=== PATIENT | female | born 1950 | race Caucasian/White ===

== ENCOUNTER 2017-03-05 11:19 | Inpatient (IN) | payer MEDICARE ==
[~2017-03-05] VITALS: Ht 162.6 cm; Wt 123.4 kg
[2017-03-05 11:51] LABS: BASO # 0.1 x10^3/uL (0.0-0.2); BASO % 1 % (0-3); EOS % 1 % (0-3); HEMATOCRIT 37.5 % (36.0-47.0); HEMOGLOBIN 12.6 g/dL (12.0-15.5); LYMPH # 1.9 x10^3/uL (1.0-4.8); LYMPH % 34 % (24-48); MEAN CORPUSCULAR HEMOGLOBIN 29 pg (25-35); MEAN CORPUSCULAR HGB CONC 34 g/dL (31-37); MEAN CORPUSCULAR VOLUME 87 fL (79-100); MONO % 7 % (0-9); NEUT % 57 % (31-73); PLATELET COUNT 146 x10^3/uL (140-400); RED CELL DISTRIBUTION WIDTH 14.5 % (11.5-14.5); WHITE BLOOD COUNT 5.7 x10^3/uL (4.0-11.0)
[2017-03-05 12:01] LABS: CALCIUM 9.4 mg/dL (8.5-10.1); CREATININE 0.9 mg/dL (0.6-1.0); GFR 62.8
--- NOTE | 2017-03-05 12:02 | RAD ---
Portable chest, 03/05/2017: History: Chest pain, shortness of breath Comparison is made to a study from 05/03/2011. The heart is within normal limits in size. There is calcific plaquing of the aorta. The pulmonary vascularity is normal. No pulmonary infiltrates are seen. There is no evidence of pleural fluid. IMPRESSION: No acute cardiopulmonary abnormality is detected.
[2017-03-05 12:05] LABS: INR 1.1 (0.8-1.1); PROTHROMBIN TIME PATIENT 13.5 SEC (11.7-14.0)
[2017-03-05 12:06] LABS: ALBUMIN 3.4 g/dL (3.4-5.0); ALBUMIN/GLOBULIN RATIO 0.8 (1.0-1.7); MAGNESIUM 1.8 mg/dL (1.8-2.4); TOTAL BILIRUBIN 0.6 mg/dL (0.2-1.0); TOTAL PROTEIN 7.8 g/dL (6.4-8.2)
[2017-03-05] MEDS ORDERED: NITROGLYCERIN SUBLINGUAL 0.4 MG BOTTLE OF 25. SL PRN (12:30)
[2017-03-05] MEDS ORDERED: ACETAMINOPHEN 500 MG TABLET PO ONE (12:30)
[2017-03-05] MEDS ORDERED: ASPIRIN 325 MG TABLET PO ONE (12:30)
--- NOTE | 2017-03-05 12:37 | PHYS DOC ---
Past Medical History Past Medical History: Depression, Diabetes-Type II, Hypertension, Other Additional Past Medical Histor: GASTROPARESIS, [employer] APNEA, KIDNEY INFECTION Past Surgical History: Hysterectomy, Knee Replacement, Tonsillectomy Additional Past Surgical Histo: DEVIATED SEPTUM, BACK SIMUL, BILA KNEE REP, LAP BAND W REMOVAL, CARP TU-KENNEDY Alcohol Use: None Drug Use: None Adult General Chief Complaint Chief Complaint: CHEST PAIN [facility] HPI Patient is a 66 year old female who presents with chest pain and shortness of breath. Patient states for over a week she's had chest pressure, substernal, radiation into her neck. The pain is constant but worsens when she gets up and exerts assault. She also has associated shortness of breath when she exerts herself. She's not attempted any symptom controlling medication, denies previous similar symptoms. Denies any known cardiac history. She had a stress test performed last year that was inconclusive because she could not complete the treadmill portion. This was not followed up at that time. She has plans to see Dr. Kohli later this week. Marisol and was evaluated by Dr. Thomas he did not believe her symptoms were related to her gastroparesis exclusively. Patient did travel with the last couple months on a cruise. She does have increased edema in both lower legs with some pain, no history of PE or DVT. She did not take any of her medications this morning. Review of Systems Review of Systems Constitutional: Denies fever or chills [] Eyes: Denies change in visual acuity, redness, or eye pain [] HENT: Denies nasal congestion or sore throat [] Respiratory: Denies cough Cardiovascular: No additional information not addressed in HPI [] GI: Denies abdominal pain, nausea, vomiting, bloody stools or diarrhea [] : Denies dysuria or hematuria [] Musculoskeletal: Denies back pain or joint pain [] Integument: Denies rash or skin lesions [] Neurologic: Denies headache, focal weakness or sensory changes [] Current Medications Current Medications Current Medications Medications (Trade) Dose Ordered Sig/Pee Start Time Stop Time Status Last Admin Dose Admin Acetaminophen (Tylenol) 1,000 mg 1X ONCE 03/05/17 12:30 03/05/17 12:31 DC 03/05/17 12:43 1,000 MG Aspirin (Leo Aspirin) 325 mg 1X ONCE 03/05/17 12:30 03/05/17 12:31 DC 03/05/17 12:43 325 MG Nitroglycerin (Nitrostat) 0.4 mg PRN Q5MIN PRN 03/05/17 12:30 03/05/17 12:50 0.4 MG Allergies Allergies Allergies Coded Allergies Type Severity Reaction Last Updated Verified adhesive Allergy Intermediate 03/05/17 Yes codeine Allergy Intermediate 03/05/17 Yes nitrofurantoin Allergy Intermediate 03/05/17 Yes Physical Exam Physical Exam Constitutional: Well developed, well nourished, obese, no acute distress, non- toxic appearance. [] HENT: Normocephalic, atraumatic, bilateral external ears normal, oropharynx moist, no oral exudates, nose normal. [] Eyes: PERRLA, EOMI, conjunctiva normal, no discharge. [] Neck: Normal range of motion, no tenderness, supple, no stridor. [] Cardiovascular:Heart rate regular with regular rhythm, no murmur [] Lungs & Thorax: Bilateral breath sounds clear to auscultation, no wheeze or crackles, tenderness palpation on the proximal chest that does not reproduce patient's chest pain Abdomen: Bowel sounds normal, soft, no tenderness, no masses, no pulsatile masses. [] Skin: Warm, dry, no erythema, no rash. [] Back: No tenderness, no CVA tenderness. [] Extremities: No tenderness, no cyanosis, no clubbing, ROM intact, 1+ bilateral lower extremity edema with generalized tenderness palpation, neg homens Neurologic: Alert and oriented X 3, normal motor function, normal sensory function, no focal deficits noted. [] Psychologic: Affect normal, judgement normal, mood normal. [] Current Patient Data Vital Signs Vital Signs Date Time Temp Pulse Resp B/P Pulse Ox O2 Delivery O2 Flow Rate FiO2 03/05/17 12:51 82 24 200/81 95 Room Air 03/05/17 11:30 97.6 97.6 Lab Values Laboratory Tests Test 03/05/17 11:40 03/05/17 12:50 White Blood Count 5.7x10^3/uL (4.0-11.0) Red Blood Count 4.30x10^6/uL (3.50-5.40) Hemoglobin 12.6g/dL (12.0-15.5) Hematocrit 37.5% (36.0-47.0) Mean Corpuscular Volume 87fL (79-100) Mean Corpuscular Hemoglobin 29pg (25-35) Mean Corpuscular Hemoglobin Concent 34g/dL (31-37) Red Cell Distribution Width 14.5% (11.5-14.5) Platelet Count 146x10^3/uL (140-400) Neutrophils (%) (Auto) 57% (31-73) Lymphocytes (%) (Auto) 34% (24-48) Monocytes (%) (Auto) 7% (0-9) Eosinophils (%) (Auto) 1% (0-3) Basophils (%) (Auto) 1% (0-3) Neutrophils # (Auto) 3.3x10^3uL (1.8-7.7) Lymphocytes # (Auto) 1.9x10^3/uL (1.0-4.8) Monocytes # (Auto) 0.4x10^3/uL (0.0-1.1) Eosinophils # (Auto) 0.1x10^3/uL (0.0-0.7) Basophils # (Auto) 0.1x10^3/uL (0.0-0.2) Prothrombin Time 13.5SEC (11.7-14.0) Prothrombin Time INR 1.1 (0.8-1.1) D-Dimer (Brook) 0.44ug/mlFEU (0.00-0.50) Sodium Level 134mmol/L (136-145) L Potassium Level 4.0mmol/L (3.5-5.1) Chloride Level 101mmol/L (98-107) Carbon Dioxide Level 26mmol/L (21-32) Anion Gap 7 (6-14) Blood Urea Nitrogen 16mg/dL (7-20) Creatinine 0.9mg/dL (0.6-1.0) Estimated GFR (Cockcroft-Gault) 62.8 BUN/Creatinine Ratio 18 (6-20) Glucose Level 276mg/dL (70-99) H Calcium Level 9.4mg/dL (8.5-10.1) Magnesium Level 1.8mg/dL (1.8-2.4) Total Bilirubin 0.6mg/dL (0.2-1.0) Aspartate Amino Transferase (AST) 41U/L (15-37) H Alanine Aminotransferase (ALT) 48U/L (14-59) Alkaline Phosphatase 65U/L (46-116) Troponin I Quantitative < 0.017ng/mL (0.000-0.055) MF-Zuf-M-Type Natriuretic Peptide 48pg/mL (0-124) Total Protein 7.8g/dL (6.4-8.2) Albumin 3.4g/dL (3.4-5.0) Albumin/Globulin Ratio 0.8 (1.0-1.7) L Urine Collection Type Unknown Urine Color Yellow Urine Clarity Cloudy Urine pH 7.0 Urine Specific [place] 1.015 Urine Protein 100mg/dL (NEG-TRACE) Urine Glucose (UA) >=1000mg/dL (NEG) Urine Ketones (Stick) Tracemg/dL (NEG) Urine Blood Small (NEG) Urine Nitrite Negative (NEG) Urine Reducing Substances Neg% (NEG) Urine Bilirubin Negative (NEG) Urine Urobilinogen Dipstick 0.2mg/dL (0.2 mg/dL) Urine Leukocyte Esterase Small (NEG) Urine RBC 1-2/HPF (0-2) Urine WBC 11-20/HPF (0-4) Urine Squamous Epithelial Cells Mod/LPF Urine Bacteria Many/HPF (0-FEW) Laboratory Tests 03/05/17 11:40 Laboratory Tests 03/05/17 11:40 EKG EKG 84 bpm, sinus, normal axis, normal intervals, no acute ST elevation or depression appreciated, nonischemic T waves and interpreted by hi Radiology/Procedures Radiology/Procedures Chest x-ray: Portable chest, 03/05/2017: History: Chest pain, shortness of breath Comparison is made to a study from 05/03/2011. The heart is within normal limits in size. There is calcific plaquing of the aorta. The pulmonary vascularity is normal. No pulmonary infiltrates are seen. There is no evidence of pleural fluid. IMPRESSION: No acute cardiopulmonary abnormality is detected. Course & Med Decision Making Course & Med Decision Making Pertinent Labs and Imaging studies reviewed. (See chart for details) Pt given aspirin and nitro. Due to pt's symptoms and recent travel, D dimer added. Discussed pt with Dr. Kohli, who recommended admission, echo. Pt feeling improved, no acute findings on ED workup, D dimer negative. Pt accepted by Dr. Garcia to [facility]. Jen Disclaimer Dragarabella Disclaimer This electronic medical record was generated, in whole or in part, using a voice recognition dictation system. Departure Departure Disposition: 09 ADMITTED INPATIENT Admitting Physician: Jarrell Garcia Condition: STABLE Referrals: JARRELL GARCIA MD (PCP) RADHA DAVALOS MD March 05, 2017 12:37
[2017-03-05 13:03] LABS: BILIRUBIN,URINE NEGATIVE (NEG); GLUCOSE,URINE >=1000 mg/dL (NEG); NITRITE,URINE NEGATIVE (NEG); PROTEIN,URINE 100 mg/dL (NEG-TRACE); UROBILINOGEN,URINE 0.2 mg/dL (0.2 mg/dL)
[2017-03-05 13:32] LABS: BACTERIA,URINE MANY /HPF (0-FEW); SQUAMOUS EPITHELIAL CELL,UR MOD /LPF
--- NOTE | 2017-03-05 14:02 | EKG ---
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
[2017-03-05] MEDS ORDERED: fentaNYL PF VIAL 100 MCG/2 ML VIAL IV PRN (14:30)
[2017-03-05] MEDS ORDERED: ONDANSETRON PF 4 MG/2 ML VIAL. IV PRN (14:30)
--- NOTE | 2017-03-05 16:00 | ACF ---
Admission Forms Criteria CHEST PAIN Clinical Indications for Admission to Inpatient Care (Place 'X' for any and all applicable criteria): Admission is indicated for chest pain and ANY ONE of the following(1)(2)(3)(4)(5 ): [ ]I. Angina with acute coronary syndrome (Also use Myocardial Infarction or Angina guideline) [ ]II. Hemodynamic instability [X]III. Angina needing acute intervention as indicated by ALL of the following( 11)(12): [X]a) Unstable angina is present as indicated by angina that is ANY ONE of the following: [ ]i) New onset [ ]ii) Nocturnal [ ]iii) Prolonged at rest [X]iv) Progressive [X]b) Angina warrants acute intervention as indicated by ANY ONE of the following: [ ]i) Recurrent angina (e.g, not responding as previously to treatment) [ ]ii) Angina at rest or with low-level activities despite initial medical therapy [ ]iii) New or presumably new ST-segment depression on ECG [ ]iv) Signs or symptoms of heart failure (eg, dyspnea, pulmonary edema) [ ]v) New or worsening mitral regurgitation [ ]vi) Hemodynamic instability [ ]vii) Dangerous arrhythmia (eg, sustained ventricular tachycardia) [ ]viii) History of percutaneous coronary intervention within 6 months [ ]ix) History of coronary artery bypass graft surgery [ ]x) SAQIB risk score of 2 or greater[A] [X]xi) History of Diabetes(14) [ ]xii) High-risk cardiac ischemia findings on noninvasive testing (e.g, echocardiogram, treadmill testing, nuclear scan) [ ]xiii) Chronic renal insufficiency (ie, estimated GFR less than 60 mL/min/1.732m) [ ]xiv) Left ventricular ejection fraction less than 40% [ ]IV. Evidence of MO (eg, cardiac biomarkers positive, ST-segment elevation on ECG) also use Myocardial Infarction Criteria Form. [ ]V. Pulmonary edema [ ]. Respiratory distress [ ]VII. Chest pain indicative of serious diagnosis other than coronary artery disease (eg, aortic dissection) [ ]VIII. Contraindications and/or Inappropriate clinical situations for Observational Care in patients with Chest Pain, when ANY ONE of the following is required: [ ]a) Patient with risk factor for pulmonary embolism, acute coronary syndrome and myocardial infarction (18) [ ]b) Patient with Pulmonary embolism require an average LOS of 4.3 days, therefore emergency department observation management is inappropriate 18,23 [ ]c) Painful condition/s in the elderly, have the highest rate of recidivism after emergency department observation management (10.8%) 20,21,22 [ ]d) Elevated cardiac biomarker requires intensive and exhaustive care (19) [ ]IX. General contraindications and/or Inappropriate clinical situations for Observational Care in patients with Chest Pain, when ANY ONE of the following is required: [ ]a) Prediction of prolongation of LOS based on ANY ONE of the following may be considered as a contraindication for observational care 2, 3, 4, 5, 6, 7, 8, 9, 10, 11 [ ]i) Age > 65 yrs. [ ]ii) Patient arriving by ambulance [ ]iii) Patient with high acuity [ ]iv) Patient requiring vital sign monitoring [ ]v) Patient on IV medication [ ]b) Systolic blood pressures 180mmHg 3,12 [ ]c) Patient with altered mental status including delirium and other alteration of consciousness, (3) [ ]d) Patient whose discharge disposition will be to a senior care home or rehabilitation home should not be managed in Emergency Department Observation Unit. CMS rule requires 3 days hospital stay before such placement. 3,13 [ ]e) Patient with failure to thrive due to broad array of etiologies 3,16,17 [ ]f) Inability to ambulate 3,14 Extended stay beyond goal length of stay may be needed for (1)(28): [ ]a) Specific condition diagnosed after evaluation (eg, pulmonary embolism, aortic dissection) [ ]b) Unstable angina [ ]c) Continued suspicion of acute coronary syndrome with inability to complete needed cardiac evaluation (eg, patient clinically unable to undergo stress testing) [ ]d) Myocardial infarction (Contents from ANGINA and CHEST PAIN clinical indications for admission to inpatient care have been integrated in this form) The original [employer] content created by [employer] has been revised. The portions of the content which have been revised are identified through the use of italic text or in bold, and [email or web address] has neither reviewed nor approved the modified material. All other unmodified content is copyright [employer]. Please see references footnoted in the original [facility] [employer] edition 2016 Admission Criteria Met?: Yes SUZI JACKSON March 05, 2017 16:00
[2017-03-05 16:30] VITALS: BP 167/77
--- NOTE | 2017-03-05 17:48 | PDOC2 ---
CONSULT Date of Consult Date of Consult DATE: 03/05/17 TIME: 17:41 Reason for Consult Reason for Consult: Chest pain Referring Physician Referring Physician: Dr. Fall Identification/Chief Complaint Chief Complaint Chest pain History of Present Illness Reason for Visit: This patient is a 66-year-old lady with a known history of hypertension and she is above her ideal body weight. For about one week the patient has been having some constant chest pain and she was coming to see me in the office on . Today the chest pains got worse and has been continuous. The pain tends to be retrosternal and sharp and is also associated with shortness of breath which is getting worse. The patient has also noticed that she has been having worsening leg edema. In the ER she was seen and evaluated and her initial troponins were negative and her EKG did not have any acute changes. He was decided to bring the patient in for further workup. At the time that I saw her she feels a little better but she still continues to have the pain that she's had for over a week. Past Medical History Cardiovascular: HTN GI: GERD Current Problem List Problem List Problems Medical Problems: (1) Chest pain Status: Acute Current Medications Current Medications Current Medications Aspirin (Leo Aspirin) 325 mg 1X ONCE PO Last administered on 03/05/17 12:43 ; Start 03/05/17 at 12:30; Stop 03/05/17 at 12:31; Status DC Nitroglycerin (Nitrostat) 0.4 mg PRN Q5MIN PRN SL CHEST PAIN Last administered on 03/05/17 12:50; Start 03/05/17 at 12:30 Acetaminophen (Tylenol) 1,000 mg 1X ONCE PO Last administered on 03/05/17 12: 43; Start 03/05/17 at 12:30; Stop 03/05/17 at 12:31; Status DC Ondansetron HCl (Zofran) 4 mg PRN Q8HRS PRN IV NAUSEA/VOMITING; Start 03/05/17 at 14:30; Stop 03/06/17 at 14:29 Fentanyl Citrate (Fentanyl 2ml Vial) 50 mcg PRN Q2HR PRN IV PAIN; Start at 14:30; Stop 03/06/17 at 14:29 Allergies Allergies: Coded Allergies: adhesive (Verified Allergy, Intermediate, 03/05/17) codeine (Verified Allergy, Intermediate, 03/05/17) nitrofurantoin (Verified Allergy, Intermediate, 03/05/17) Physical Exam General: Alert, Oriented X3, Cooperative HEENT: Atraumatic, PERRLA Lungs: Other (moving air well. Few basilar Rales. No wheezing. No rhonchi.) Heart: Regular rate, Normal S1, Normal S2, No murmurs Abdomen: Normal bowel sounds, Soft Extremities: Other (1-2+ ankle edema) Psych/Mental Status: Mental status NL Vitals VITALS Vital Signs Date Time Temp Pulse Resp B/P Pulse Ox O2 Delivery O2 Flow Rate FiO2 03/05/17 16:54 Room Air 03/05/17 16:30 97.5 69 20 167/77 94 97.5 Labs Labs Laboratory Tests Test 03/05/17 11:40 03/05/17 12:50 White Blood Count 5.7x10^3/uL (4.0-11.0) Red Blood Count 4.30x10^6/uL (3.50-5.40) Hemoglobin 12.6g/dL (12.0-15.5) Hematocrit 37.5% (36.0-47.0) Mean Corpuscular Volume 87fL (79-100) Mean Corpuscular Hemoglobin 29pg (25-35) Mean Corpuscular Hemoglobin Concent 34g/dL (31-37) Red Cell Distribution Width 14.5% (11.5-14.5) Platelet Count 146x10^3/uL (140-400) Neutrophils (%) (Auto) 57% (31-73) Lymphocytes (%) (Auto) 34% (24-48) Monocytes (%) (Auto) 7% (0-9) Eosinophils (%) (Auto) 1% (0-3) Basophils (%) (Auto) 1% (0-3) Neutrophils # (Auto) 3.3x10^3uL (1.8-7.7) Lymphocytes # (Auto) 1.9x10^3/uL (1.0-4.8) Monocytes # (Auto) 0.4x10^3/uL (0.0-1.1) Eosinophils # (Auto) 0.1x10^3/uL (0.0-0.7) Basophils # (Auto) 0.1x10^3/uL (0.0-0.2) Prothrombin Time 13.5SEC (11.7-14.0) Prothromb Time International Ratio 1.1 (0.8-1.1) D-Dimer (Brook) 0.44ug/mlFEU (0.00-0.50) Sodium Level 134mmol/L (136-145) Potassium Level 4.0mmol/L (3.5-5.1) Chloride Level 101mmol/L (98-107) Carbon Dioxide Level 26mmol/L (21-32) Anion Gap 7 (6-14) Blood Urea Nitrogen 16mg/dL (7-20) Creatinine 0.9mg/dL (0.6-1.0) Estimated GFR (Cockcroft-Gault) 62.8 BUN/Creatinine Ratio 18 (6-20) Glucose Level 276mg/dL (70-99) Calcium Level 9.4mg/dL (8.5-10.1) Magnesium Level 1.8mg/dL (1.8-2.4) Total Bilirubin 0.6mg/dL (0.2-1.0) Aspartate Amino Transf (AST/SGOT) 41U/L (15-37) Alanine Aminotransferase (ALT/SGPT) 48U/L (14-59) Alkaline Phosphatase 65U/L (46-116) Troponin I Quantitative < 0.017ng/mL (0.000-0.055) ST-Hni-U-Type Natriuretic Peptide 48pg/mL (0-124) Total Protein 7.8g/dL (6.4-8.2) Albumin 3.4g/dL (3.4-5.0) Albumin/Globulin Ratio 0.8 (1.0-1.7) Urine Collection Type Unknown Urine Color Yellow Urine Clarity Cloudy Urine pH 7.0 Urine Specific [place] 1.015 Urine Protein 100mg/dL (NEG-TRACE) Urine Glucose (UA) >=1000mg/dL (NEG) Urine Ketones (Stick) Tracemg/dL (NEG) Urine Blood Small (NEG) Urine Nitrite Negative (NEG) Urine Reducing Substances Neg% (NEG) Urine Bilirubin Negative (NEG) Urine Urobilinogen Dipstick 0.2mg/dL (0.2 mg/dL) Urine Leukocyte Esterase Small (NEG) Urine RBC 1-2/HPF (0-2) Urine WBC 11-20/HPF (0-4) Urine Squamous Epithelial Cells Mod/LPF Urine Bacteria Many/HPF (0-FEW) Laboratory Tests Test 03/05/17 11:40 03/05/17 12:50 White Blood Count 5.7x10^3/uL (4.0-11.0) Red Blood Count 4.30x10^6/uL (3.50-5.40) Hemoglobin 12.6g/dL (12.0-15.5) Hematocrit 37.5% (36.0-47.0) Mean Corpuscular Volume 87fL (79-100) Mean Corpuscular Hemoglobin 29pg (25-35) Mean Corpuscular Hemoglobin Concent 34g/dL (31-37) Red Cell Distribution Width 14.5% (11.5-14.5) Platelet Count 146x10^3/uL (140-400) Neutrophils (%) (Auto) 57% (31-73) Lymphocytes (%) (Auto) 34% (24-48) Monocytes (%) (Auto) 7% (0-9) Eosinophils (%) (Auto) 1% (0-3) Basophils (%) (Auto) 1% (0-3) Neutrophils # (Auto) 3.3x10^3uL (1.8-7.7) Lymphocytes # (Auto) 1.9x10^3/uL (1.0-4.8) Monocytes # (Auto) 0.4x10^3/uL (0.0-1.1) Eosinophils # (Auto) 0.1x10^3/uL (0.0-0.7) Basophils # (Auto) 0.1x10^3/uL (0.0-0.2) Prothrombin Time 13.5SEC (11.7-14.0) Prothromb Time International Ratio 1.1 (0.8-1.1) D-Dimer (Brook) 0.44ug/mlFEU (0.00-0.50) Sodium Level 134mmol/L (136-145) Potassium Level 4.0mmol/L (3.5-5.1) Chloride Level 101mmol/L (98-107) Carbon Dioxide Level 26mmol/L (21-32) Anion Gap 7 (6-14) Blood Urea Nitrogen 16mg/dL (7-20) Creatinine 0.9mg/dL (0.6-1.0) Estimated GFR (Cockcroft-Gault) 62.8 BUN/Creatinine Ratio 18 (6-20) Glucose Level 276mg/dL (70-99) Calcium Level 9.4mg/dL (8.5-10.1) Magnesium Level 1.8mg/dL (1.8-2.4) Total Bilirubin 0.6mg/dL (0.2-1.0) Aspartate Amino Transf (AST/SGOT) 41U/L (15-37) Alanine Aminotransferase (ALT/SGPT) 48U/L (14-59) Alkaline Phosphatase 65U/L (46-116) Troponin I Quantitative < 0.017ng/mL (0.000-0.055) CJ-Hag-E-Type Natriuretic Peptide 48pg/mL (0-124) Total Protein 7.8g/dL (6.4-8.2) Albumin 3.4g/dL (3.4-5.0) Albumin/Globulin Ratio 0.8 (1.0-1.7) Urine Collection Type Unknown Urine Color Yellow Urine Clarity Cloudy Urine pH 7.0 Urine Specific [place] 1.015 Urine Protein 100mg/dL (NEG-TRACE) Urine Glucose (UA) >=1000mg/dL (NEG) Urine Ketones (Stick) Tracemg/dL (NEG) Urine Blood Small (NEG) Urine Nitrite Negative (NEG) Urine Reducing Substances Neg% (NEG) Urine Bilirubin Negative (NEG) Urine Urobilinogen Dipstick 0.2mg/dL (0.2 mg/dL) Urine Leukocyte Esterase Small (NEG) Urine RBC 1-2/HPF (0-2) Urine WBC 11-20/HPF (0-4) Urine Squamous Epithelial Cells Mod/LPF Urine Bacteria Many/HPF (0-FEW) Assessment/Plan Assessment/Plan This patient comes in with chest pain and dyspnea that are atypical for angina. In view of her symptoms and the edema I would like to get an echocardiogram to evaluate the left ventricular function and then depending on what that shows we' ll then make further recommendations. At the present time I don't think that she could do a stress test due to the dyspnea and the pain. Thank you very much for asking me to participate in the care of this patient WATSON HARRELL MD March 05, 2017 17:48
--- NOTE | 2017-03-05 18:21 | CARD ---
APPROVED REPORT EXAM: Two-dimensional and M-mode echocardiogram with Doppler and color Doppler. Other Information Quality : GoodHR: 62bpm Rhythm : NSR INDICATION Chest Pain Shortness of breath RISK FACTORS Hypertension Obesity Diabetes Smoking 2D DIMENSIONS RVDd2.9 (2.9-3.5cm)Left Atrium(2D)4.1 (1.6-4.0cm) IVSd1.0 (0.7-1.1cm)Aortic Root(2D)2.8 (2.0-3.7cm) LVDd5.6 (3.9-5.9cm)LVOT Diameter2.4 (1.8-2.4cm) PWd1.0 (0.7-1.1cm)LVDs3.4 (2.5-4.0cm) FS (%) 40.3 %SV109.2 ml LVEF(%)70.0 (>50%) Aortic Valve AoV Peak Tong.141.3cm/sAoV VTI28.4cm AO Peak GR.8.0mmHgLVOT Peak Tong.108.8cm/s AO Mean GR.4mmHgAVA (VMAX)3.41cm2 Mitral Valve MV E Xzddkdhg229.3cm/sMV E Peak Gr.8mmHg MV DECEL [id number] A Ykpghibs597.6cm/s MV E Mean Gr.2mmHgE/A Ratio0.7 MV A [id number] Pulmonary Valve PV Peak Uxeazwsf355.8cm/s Pulmonary Vein S1 Cbadwyap17.2cm/sD2 Ytimzach87.6cm/s PVa [id number] LEFT VENTRICLE The left ventricle is normal size. There is normal left ventricular wall thickness. The left ventricu lar systolic function is normal and the ejection fraction is within normal range. The Ejection Fracti on is 70%. There is normal LV segmental wall motion. Transmitral Doppler flow pattern is Grade I-abno rmal relaxation pattern. RIGHT VENTRICLE The right ventricle is normal size. There is normal right ventricular wall thickness. The right ventr icular systolic function is normal. ATRIA The left atrium size is normal. The right atrium size is normal. The interatrial septum is intact wit h no evidence for an atrial septal defect or patent foramen ovale as noted on 2-D or Doppler imaging. AORTIC VALVE The aortic valve is mildly sclerotic. The aortic valve is trileaflet. Doppler and Color Flow revealed no significant aortic regurgitation. There is no significant aortic valvular stenosis. MITRAL VALVE Mitral annular calcification is mild. The mitral valve leaflets are thickened. There is no evidence o f mitral valve prolapse. There is no mitral valve stenosis. Doppler and Color Flow revealed trace marissa ral valve regurgitation noted. TRICUSPID VALVE Doppler and Color Flow revealed no tricuspid valve regurgitation noted. Unable to determine pulmonary artery pressure at exam time. PULMONIC VALVE Doppler and Color Flow revealed no pulmonic valvular regurgitation. GREAT VESSELS The aortic root is normal in size. The ascending aorta is normal in size. The pulmonary artery is nor mal. The IVC is normal in size and collapses >50% with inspiration. PERICARDIAL EFFUSION There is no evidence of significant pericardial effusion. Critical Notification Critical Value: No <Conclusion> The left ventricular systolic function is normal and the ejection fraction is within normal range. The Ejection Fraction is 70%. Transmitral Doppler flow pattern is Grade I-abnormal relaxation pattern. The left atrium size is normal. The right atrium size is normal. The aortic valve is mildly sclerotic. The aortic valve is trileaflet. Doppler and Color Flow revealed trace mitral valve regurgitation noted. Mitral annular calcification is mild. The mitral valve leaflets are thickened. Doppler and Color Flow revealed no tricuspid valve regurgitation noted. Unable to determine pulmonary artery pressure at exam time. Doppler and Color Flow revealed no pulmonic valvular regurgitation. There is no evidence of significant pericardial effusion.
[2017-03-05 19:28] VITALS: BP 135/62
[2017-03-05] MEDS ORDERED: ESZOPICLONE 2 MG PO PRN (20:30)
[2017-03-05] MEDS ORDERED: [UNRECOGNIZED DRUG - CODE] PO (20:46)
[2017-03-05] MEDS ORDERED: ROPI0.5T2 PO (20:46)
[2017-03-05] MEDS ORDERED: GABA-586 PO (20:46)
[2017-03-05] MEDS ORDERED: METF500T4 PO (20:46)
[2017-03-05] MEDS ORDERED: METO50TA2 PO (20:46)
[2017-03-05] MEDS ORDERED: FESO8TAB PO (20:46)
[2017-03-05] MEDS ORDERED: MELO-150 PO (20:46)
[2017-03-05] MEDS ORDERED: FLUC200T4 PO (20:46)
[2017-03-05] MEDS ORDERED: INSU100V8 SQ (20:46)
[2017-03-05] MEDS ORDERED: DULO60CA44 PO (20:46)
[2017-03-05] MEDS ORDERED: SULF1TAB23 PO (20:46)
[2017-03-05] MEDS ORDERED: ESZO2TAB33 PO (20:46)
[2017-03-05] MEDS ORDERED: INSU200I SQ (20:46)
[2017-03-05] MEDS ORDERED: ERYT250C8 PO (20:46)
[2017-03-05] MEDS ORDERED: INSULIN DETEMIR 300 UNITS/3 ML INSULN.PEN. SQ SCH (21:00)
[2017-03-05] MEDS: ERYTHROMYCIN BASE 250 MG TABLET PO SCH (22:30)
[2017-03-05] MEDS: GABAPENTIN 300 MG CAPSULE. PO SCH (22:30)
[2017-03-05] MEDS: ZOLPIDEM 5 MG TABLET. PO PRN (22:31)
[2017-03-05] MEDS: rOPINIRole 0.25 MG TABLET. PO SCH (22:31)
[2017-03-05] MEDS: METOPROLOL TART IMMED RELEASE 50 MG TABLET. PO SCH (22:31)
[2017-03-05 23:22] VITALS: BP 147/63
[2017-03-06 03:16] VITALS: BP 153/56
[2017-03-06 07:00] VITALS: BP 156/67
[2017-03-06] MEDS ORDERED: INSULIN ASPART 300 UNITS/3 ML INSULN.PEN SQ SCH ×2 (07:30)
[2017-03-06] MEDS ORDERED: metFORMIN 500 MG TABLET PO SCH (08:00)
--- NOTE | 2017-03-06 08:34 | PDOC ---
Provider Note Provider Note [id number] JARRELL GARCIA MD March 06, 2017 08:34
[2017-03-06] MEDS ORDERED: SMZ/TMP 400/80MG TABLET. PO SCH (09:00)
--- NOTE | 2017-03-06 10:12 | HP ---
ADMIT DATE: 03/05/2017 CHIEF COMPLAINT: Chest pressure and heaviness. HISTORY OF PRESENT ILLNESS: A 66-year-old white female with history of sleep apnea and insulin-dependent diabetes and gastroparesis. For the last 1-2 weeks, she has had "heaviness" in her midsternal area that is present at rest, but worse with activity and also associated with exertional dyspnea. She does not have orthopnea or PND or cough, fever or chills, but it takes only mild exertion to worsen the dyspnea. The pressure in her chest does not radiate and she has never had any previous cardiac problems. Cardiac enzymes, chest x-ray and echo are all within normal limits to this point. PAST MEDICAL HISTORY: She has had appendectomy, hysterectomy. She has had bladder surgery, sees a urologist at for this. She has gastroparesis. MEDICATIONS: She takes erythromycin. Her A1c last was 7.2 one month ago with high-dose insulin therapy. She uses CPAP at night. SOCIAL HISTORY: Single, employed, nonsmoker, nondrinker. FAMILY HISTORY: Unremarkable. REVIEW OF SYSTEMS: Unremarkable. OBJECTIVE: ENT: All within normal limits. NECK: No masses, nodes or bruits. LUNGS: Decreased breath sounds. No wheezing. CARDIOVASCULAR: Regular rate. Heart tones distant. No murmur or S3. ABDOMEN: Obese, soft, benign and nontender. EXTREMITIES: Good pedal and radial pulses, minimal edema present. No joint or skin lesions. NEUROLOGIC: Physiologic. ASSESSMENT: Exertional chest pressure and exertional dyspnea in an insulin-dependent diabetic. This is very suspicious for anginal equivalent. High risk for coronary artery disease. PLAN: Per Dr. Kohli's recommendations. JARRELL GARCIA MD DR: KRISTIE/belle JOB#: [id number] / [id number]
[2017-03-06 11:00] VITALS: BP 145/63
[2017-03-06] MEDS: MELOXICAM 7.5 MG TABLET PO SCH (11:01)
[2017-03-06] MEDS: OXYBUTYNIN CHLORIDE 5 MG TABLET PO SCH ×3 (11:02→22:04)
[2017-03-06] MEDS: METOPROLOL TART IMMED RELEASE 50 MG TABLET. PO SCH ×2 (11:02→22:05)
[2017-03-06] MEDS: rOPINIRole 0.25 MG TABLET. PO SCH ×2 (11:02→22:04)
[2017-03-06] MEDS: DULoxetine HCL 30 MG CAPSULE.DR PO SCH (11:03)
[2017-03-06] MEDS: INSULIN ASPART 300 UNITS/3 ML INSULN.PEN SQ SCH ×2 (11:09→16:30)
[2017-03-06 15:00] VITALS: BP 153/60
[2017-03-06] MEDS ORDERED: ONDANSETRON ODT 4 MG TAB.RAPDIS. PO PRN (18:00)
--- NOTE | 2017-03-06 18:51 | PDOC ---
PROGRESS NOTES Subjective Subjective No chest pains now. The enzymes have been negative. The echocardiogram was done and it shows: The left ventricular systolic function is normal and the ejection fraction is within normal range. The Ejection Fraction is 70%. Transmitral Doppler flow pattern is Grade I-abnormal relaxation pattern. The left atrium size is normal. The right atrium size is normal. The aortic valve is mildly sclerotic. The aortic valve is trileaflet. Doppler and Color Flow revealed trace mitral valve regurgitation noted. Mitral annular calcification is mild. The mitral valve leaflets are thickened. Doppler and Color Flow revealed no tricuspid valve regurgitation noted. Unable to determine pulmonary artery pressure at exam time. Doppler and Color Flow revealed no pulmonic valvular regurgitation. There is no evidence of significant pericardial effusion. Objective Objective Vital Signs Date Time Temp Pulse Resp B/P Pulse Ox O2 Delivery O2 Flow Rate FiO2 03/06/17 15:00 98.4 70 18 153/60 95 Room Air 98.4 Intake and Output 03/06/17 07:00 Intake Total 300 ml Output Total 1200 ml Balance -900 ml Intake Oral 300 ml Output Urine Total 1200 ml Physical Exam Physical Exam No significant changes in cardiac exam Assessment Assessment We have discussed the situation and options as well as the risks with the patient and she decided that she wanted to proceed with a heart catheterization not a stress test. I will set up for the heart catheterization to be done tomorrow. Problems Medical Problems: (1) Chest pain Status: Acute Comment Review of Relevant I have reviewed the following items danny (where applicable) has been applied. Labs Laboratory Tests Test 03/05/17 11:40 03/05/17 12:50 03/05/17 18:49 03/05/17 19:49 White Blood Count 5.7x10^3/uL (4.0-11.0) Red Blood Count 4.30x10^6/uL (3.50-5.40) Hemoglobin 12.6g/dL (12.0-15.5) Hematocrit 37.5% (36.0-47.0) Mean Corpuscular Volume 87fL (79-100) Mean Corpuscular Hemoglobin 29pg (25-35) Mean Corpuscular Hemoglobin Concent 34g/dL (31-37) Red Cell Distribution Width 14.5% (11.5-14.5) Platelet Count 146x10^3/uL (140-400) Neutrophils (%) (Auto) 57% (31-73) Lymphocytes (%) (Auto) 34% (24-48) Monocytes (%) (Auto) 7% (0-9) Eosinophils (%) (Auto) 1% (0-3) Basophils (%) (Auto) 1% (0-3) Neutrophils # (Auto) 3.3x10^3uL (1.8-7.7) Lymphocytes # (Auto) 1.9x10^3/uL (1.0-4.8) Monocytes # (Auto) 0.4x10^3/uL (0.0-1.1) Eosinophils # (Auto) 0.1x10^3/uL (0.0-0.7) Basophils # (Auto) 0.1x10^3/uL (0.0-0.2) Prothrombin Time 13.5SEC (11.7-14.0) Prothromb Time International Ratio 1.1 (0.8-1.1) D-Dimer (Brook) 0.44ug/mlFEU (0.00-0.50) Sodium Level 134mmol/L (136-145) Potassium Level 4.0mmol/L (3.5-5.1) Chloride Level 101mmol/L (98-107) Carbon Dioxide Level 26mmol/L (21-32) Anion Gap 7 (6-14) Blood Urea Nitrogen 16mg/dL (7-20) Creatinine 0.9mg/dL (0.6-1.0) Estimated GFR (Cockcroft-Gault) 62.8 BUN/Creatinine Ratio 18 (6-20) Glucose Level 276mg/dL (70-99) Calcium Level 9.4mg/dL (8.5-10.1) Magnesium Level 1.8mg/dL (1.8-2.4) Total Bilirubin 0.6mg/dL (0.2-1.0) Aspartate Amino Transf (AST/SGOT) 41U/L (15-37) Alanine Aminotransferase (ALT/SGPT) 48U/L (14-59) Alkaline Phosphatase 65U/L (46-116) Troponin I Quantitative < 0.017ng/mL (0.000-0.055) < 0.017ng/mL (0.000-0.055) ZF-Fpf-M-Type Natriuretic Peptide 48pg/mL (0-124) Total Protein 7.8g/dL (6.4-8.2) Albumin 3.4g/dL (3.4-5.0) Albumin/Globulin Ratio 0.8 (1.0-1.7) Urine Collection Type Unknown Urine Color Yellow Urine Clarity Cloudy Urine pH 7.0 Urine Specific [place] 1.015 Urine Protein 100mg/dL (NEG-TRACE) Urine Glucose (UA) >=1000mg/dL (NEG) Urine Ketones (Stick) Tracemg/dL (NEG) Urine Blood Small (NEG) Urine Nitrite Negative (NEG) Urine Reducing Substances Neg% (NEG) Urine Bilirubin Negative (NEG) Urine Urobilinogen Dipstick 0.2mg/dL (0.2 mg/dL) Urine Leukocyte Esterase Small (NEG) Urine RBC 1-2/HPF (0-2) Urine WBC 11-20/HPF (0-4) Urine Squamous Epithelial Cells Mod/LPF Urine Bacteria Many/HPF (0-FEW) Glucose (Fingerstick) 206mg/dL (70-99) Test 03/06/17 02:25 03/06/17 07:54 03/06/17 11:05 03/06/17 17:02 Troponin I Quantitative < 0.017ng/mL (0.000-0.055) Glucose (Fingerstick) 273mg/dL (70-99) 256mg/dL (70-99) 237mg/dL (70-99) Laboratory Tests Test 03/05/17 19:49 03/06/17 02:25 03/06/17 07:54 03/06/17 11:05 Troponin I Quantitative < 0.017ng/mL (0.000-0.055) < 0.017ng/mL (0.000-0.055) Glucose (Fingerstick) 273mg/dL (70-99) 256mg/dL (70-99) Test 03/06/17 17:02 Glucose (Fingerstick) 237mg/dL (70-99) Microbiology 03/05/17 Urine Culture - Preliminary, Resulted 03/05/17 Urine Culture Result 1 (HECTOR) - Preliminary, Resulted Medications Current Medications Aspirin (Leo Aspirin) 325 mg 1X ONCE PO Last administered on 03/05/17t 12:43 ; Start 03/05/17 at 12:30; Stop 03/05/17 at 12:31; Status DC Nitroglycerin (Nitrostat) 0.4 mg PRN Q5MIN PRN SL CHEST PAIN Last administered on 03/05/17 12:50; Start 03/05/17 at 12:30 Acetaminophen (Tylenol) 1,000 mg 1X ONCE PO Last administered on 03/05/17 12: 43; Start 03/05/17 at 12:30; Stop 03/05/17 at 12:31; Status DC Ondansetron HCl (Zofran) 4 mg PRN Q8HRS PRN IV NAUSEA/VOMITING; Start 03/05/17 at 14:30; Stop 03/06/17 at 14:29; Status DC Fentanyl Citrate (Fentanyl 2ml Vial) 50 mcg PRN Q2HR PRN IV PAIN; Start at 14:30; Stop 03/06/17 at 14:29; Status DC Metformin HCl (Glucophage) 500 mg BIDWMEALS PO ; Start 03/06/17 at 08:00; Stop at 08:00; Status DC Metoprolol Tartrate (Lopressor) 50 mg BID PO Last administered on 03/06/17 11: 02; Start 03/05/17 at 21:00 Trimethoprim/ Sulfamethoxazole (Bactrim Ss) 1 tab DAILY PO ; Start 03/06/17 at 09 :00; Stop 03/06/17 at 09:00; Status DC Duloxetine HCl (Cymbalta) 60 mg DAILY PO Last administered on 03/06/17 11:03; Start 03/06/17 at 09:00 Erythromycin (E-Mycin) 250 mg BID PO Last administered on 03/05/17 22:30; Start 03/06/17 at 09:00 Non-Formulary Medication 2 mg HS PRN PO INSOMNIA; Start 03/05/17 at 20:30; Status UNV Oxybutynin Chloride (Ditropan) 5 mg [id number] PO Last administered on 03/06/17 14: 19; Start 03/06/17 at 09:00 Fluconazole (Diflucan) 200 mg WEEKLY PO ; Start 03/12/17 at 09:00; Stop 03/12/17 at 09:00; Status DC Gabapentin (Neurontin) 300 mg QHS PO Last administered on 03/05/17 22:30; Start 03/05/17 at 21:00 Meloxicam (Mobic) 15 mg DAILY PO Last administered on 03/06/17 11:01; Start 03/06/17 at 09:00 Ropinirole HCl (Requip) 0.5 mg BID PO Last administered on 03/06/17 11:02; Start 03/05/17 at 21:30 Insulin Detemir (Levemir) QHS SQ ; Start 03/05/17 at 21:00; Stop 03/05/17 at 21: 16; Status DC Insulin Aspart (Novolog) TIDAC SQ ; Start 03/06/17 at 07:30; Stop 03/06/17 at 07: 30; Status DC Zolpidem Tartrate (Ambien) 5 mg PRN QHS PRN PO INSOMNIA Last administered on 22:31; Start 03/05/17 at 20:30 Metformin HCl (Glucophage) 1,000 mg BIDWMEALS PO Last administered on 03/06/17 17:00; Start 03/06/17 at 08:00 Insulin Aspart (Novolog) 26 units TIDAC SQ ; Start 03/06/17 at 07:30; Stop at 08:23; Status DC Insulin Detemir (Levemir) 96 units QHS SQ Last administered on 03/05/17 22:43; Start 03/06/17 at 21:00; Stop 03/06/17 at 21:00; Status DC Insulin Aspart (Novolog) 18 units TIDAC SQ Last administered on 03/06/17 16:30 ; Start 03/06/17 at 11:30 Insulin Detemir (Levemir) 110 units QHS SQ ; Start 03/06/17 at 21:00 Ondansetron HCl (Zofran Odt) 4 mg PRN QID PRN PO NAUSEA/VOMITING Last administered on 03/06/17 18:06; Start 03/06/17 at 18:00 Active Scripts Active Reported Lunesta (Eszopiclone) 2 Mg Tablet 2 Mg PO HS PRN Toviaz (Fesoterodine Fumarate) 8 Mg Tab.er.24h 1 Tab PO DAILY Gabapentin 300 Mg Capsule 300 Mg PO HS Triazolam 0.25 Mg Tablet 0.25 Mg PO Bactrim 400-80 Mg Tablet (Sulfamethoxazole/Trimethoprim) 1 Each Tablet 1 Tab PO DAILY Fluconazole 200 Mg Tablet 1 Tab PO WEEKLY Humalog Kwikpen (Insulin Lispro) 200 Unit/1 Ml Insuln.pen 200 Unit SQ Lantus (Insulin Glargine,Hum.rec.anlog) 100 Unit/1 Ml Vial 1 Unit SQ Metformin Hcl 500 Mg Tablet 500 Mg PO BIDWMEALS Metoprolol Tartrate 50 Mg Tablet 1 Tab PO BID Duloxetine Hcl 60 Mg Capsule.dr 60 Mg PO DAILY Ropinirole Hcl 0.5 Mg Tablet 0.5 Mg PO BID Erythromycin (Erythromycin Base) 250 Mg Capsule.dr 250 Mg PO BID Meloxicam 15 Mg Tablet 15 Mg PO DAILY Vitals/I & O Vital Sign - Last 24 Hours 03/05/17 03/05/17 03/05/17 03/05/17 19:28 20:20 22:31 23:22 Temp 98.0 98.1 98.0 98.1 Pulse 77 77 61 Resp 20 20 B/P 135/62 135/62 147/63 Pulse Ox 96 94 O2 Delivery Room Air Room Air Room Air 03/06/17 03/06/17 03/06/17 03/06/17 03:16 07:00 08:33 11:00 Temp 97.3 97.9 97.9 97.3 97.9 97.9 Pulse 69 66 71 Resp 18 20 18 B/P 153/56 156/67 145/63 Pulse Ox 95 94 95 O2 Delivery BiPAP/CPAP BiPAP/CPAP Room Air Room Air 03/06/17 03/06/17 11:02 15:00 Temp 98.4 98.4 Pulse 66 70 Resp 18 B/P 156/67 153/60 Pulse Ox 95 O2 Delivery Room Air Intake and Output 03/05/17 03/05/17 03/06/17 15:00 23:00 07:00 Intake Total 300 ml Output Total 300 ml 900 ml Balance -300 ml -600 ml WATSON HARRELL MD March 06, 2017 18:51
--- NOTE | 2017-03-06 18:52 | PDOC ---
MODERATE SEDATION ASSESSMENT RISKS/ALTERNATIVES Risks/Alternatives Risks and alternatives of this type of sedation and procedure discussed with: RISK/ALTERNATIVES: Patient H & P ON CHART H & P H & P on chart and reviewed for co-morbid conditions and appropriate labs. H&P ON CHART: Yes STATUS PREG STATUS ASSESSED: Yes MEDS/ALLERGIES REVIEWED Meds/Allergies Reviewed Medications and Allergies including time and route of recently administered narcotics and sedatives. MEDS/ALLERGIES REVIEWED: Yes ASA RATING ASA RATING: II AIRWAY ASSESSMENT Airway Assessment Airway patency, oral function limitations, presence of caps, crowns, dentures, partials, and ability to extend neck assessed. AIRWAY ASSESSMENT: Yes MALLAMPATI SCORE MALLAMPATI SCORE: II PRE-SEDATION ASSESSMENT PRE-SEDATION ASSESSMENT: Yes WATSON HARRELL MD March 06, 2017 18:51
[2017-03-06 19:25] VITALS: BP 148/68
[2017-03-06] MEDS ORDERED: INSULIN DETEMIR 300 UNITS/3 ML INSULN.PEN. SQ SCH ×2 (21:00)
[2017-03-06] MEDS: GABAPENTIN 300 MG CAPSULE. PO SCH (22:04)
[2017-03-06] MEDS: ERYTHROMYCIN BASE 250 MG TABLET PO SCH (22:04)
[2017-03-06] MEDS: ACETAMINOPHEN 325 MG TABLET. PO PRN (22:05)
[2017-03-06] MEDS: ZOLPIDEM 5 MG TABLET. PO PRN (22:10)
[2017-03-06 23:15] VITALS: BP 130/59
[2017-03-07] VITALS (9 sets, daily range): BP systolic 116–177; BP diastolic 40–80
[2017-03-07] MEDS: INSULIN ASPART 300 UNITS/3 ML INSULN.PEN SQ SCH ×3 (07:30→18:12)
--- NOTE | 2017-03-07 08:57 | PDOC ---
Provider Note Provider Note vss, no new sxs- cath today re suspected cad JARRELL GARCIA MD March 07, 2017 08:57
[2017-03-07] MEDS: MELOXICAM 7.5 MG TABLET PO SCH (09:00)
[2017-03-07] MEDS: ERYTHROMYCIN BASE 250 MG TABLET PO SCH (09:13)
[2017-03-07] MEDS: rOPINIRole 0.25 MG TABLET. PO SCH (09:13)
[2017-03-07] MEDS: DULoxetine HCL 30 MG CAPSULE.DR PO SCH (09:13)
[2017-03-07] MEDS: OXYBUTYNIN CHLORIDE 5 MG TABLET PO SCH ×2 (09:13→14:00)
[2017-03-07] MEDS: METOPROLOL TART IMMED RELEASE 50 MG TABLET. PO SCH (09:17)
[2017-03-07] MEDS ORDERED: IOHEXOL 300 MG/ML 100ML VIAL. ONE (14:06)
[2017-03-07] MEDS ORDERED: LIDOCAINE 2% 20 ML VIAL. ONE (14:07)
[2017-03-07] MEDS ORDERED: fentaNYL PF VIAL 100 MCG/2 ML VIAL ONE (14:11)
[2017-03-07] MEDS ORDERED: MIDAZOLAM HCL/PF 2 MG/2 ML VIAL. ONE (14:11)
[2017-03-07] MEDS ORDERED: fentaNYL PF VIAL 100 MCG/2 ML VIAL IV ONE (14:45)
[2017-03-07] MEDS ORDERED: MIDAZOLAM HCL/PF 2 MG/2 ML VIAL. IV ONE (14:45)
[2017-03-07] MEDS ORDERED: LIDOCAINE 2% 20 ML VIAL. IJ ONE (14:45)
[2017-03-07] MEDS ORDERED: IOHEXOL 300 MG/ML 100ML VIAL. IART ONE (14:45)
[2017-03-07] MEDS ORDERED: CONTRAST GIVEN MC PRN (15:00)
--- NOTE | 2017-03-07 16:49 | CARD ---
APPROVED REPORT Procedure(s) performed: Left Heart Catheterization HISTORY The patient is a 66 year-old female with a history of : hypertension, dyslipidemia, family history of premature CAD. INDICATION The indication(s) include : chest pain, abnormal ECG, dyspnea. CASE TECHNIQUE The patient was brought electively into the cardiac catheterization lab. A timeout was performed conf irming the patient's name, date of , procedure, and site of procedure. All necessary parties wer e wearing the appropriate personal protective equipment and radiation monitoring devices. After expla ining the risks and benefits of the procedure, informed consent was obtained.(See nursing notes for m edications administered). The right groin was sterilely prepped and draped. The right femoral groin w as infiltrated with 2% Lidocaine subcutaneous anesthesia. During this case, Fluoroscopy and low osmol ar contrast were used for imaging. A sheath was inserted into the right femoral artery without diffic ulty. Coronary angiography was performed using coronary diagnostic catheters. The left coronary syste m was accessed and visualized with a Diagnostic catheter. The right coronary system was accessed and visualized with a Diagnostic catheter. The left ventricle was accessed and visualized with a Diagnost ic catheter. Left ventricular/Aortic Valve gradient assessed on pullback. Left ventriculogram was per formed in JACOBS projection. Pre-demployment femoral angiogram was performed . Closure device was deploy ed with a Angioseal without any complications. The patient tolerated the procedure well and there wer e no complications associated with the procedure. Coronary Angiography The patient's coronary anatomy is co-dominant. The left main coronary artery is a large size vessel free of disease. The left main bifurcates to the left anterior descending and circumflex. The left anterior descending artery is a large size vessel free of disease. The first diagonal branch is a medium size vessel free of disease. The second diagonal branch is a medium size vessel free of disease. The third diagonal branch is a small size vessel free of disease. The circumflex artery is a large size vessel free of disease. The first obtuse marginal branch is a m edium size vessel free of disease. The second obtuse marginal branch is a small size vessel free of d isease. The third obtuse marginal branch is a small size vessel free of disease. The right coronary artery is a large size vessel free of disease. The right posterior descending ronald ry is a medium size vessel free of disease. The right posterolateral branch is a small size vessel fr ee of disease. Left Ventriculography The left ventricle is normal in size with normal contractility. The left ventricular ejection fractio n is estimated to be 65%. The left ventricular end diastolic pressure is 16 mmHg. There was no gradie nt across the aortic valve upon pullback. Conclusion This patient has no significant coronary artery disease and a normal left ventricular ejection fracti on. I do not think that any of her symptoms are due to to angina. I would recommend for her to have a tight blood pressure control, diet exercise and weight loss.
[2017-03-07] MEDS: ACETAMINOPHEN 325 MG TABLET. PO PRN (18:14)
--- NOTE | 2017-03-08 23:27 | DS ---
DATE OF DISCHARGE: 03/07/2017 HOSPITAL SUMMARY: A 66-year-old diabetic female who has had 2-3 weeks of exertional dyspnea and chest pressure persisting and came to the ER with the same symptoms. Physical exam and laboratory studies were unremarkable. EKG showed no acute change. Echocardiogram showed good ejection fraction of 65% with no significant valvular disease or lesions. Dr. Kohli agreed this sounded like exertional angina in a diabetic, took her to the biological lab technician and the coronary arteries were found to be clear. No specific etiology for her symptoms was discovered. She was able to be followed as an outpatient at that point. FINAL DIAGNOSES: 1. Exertional chest pain and dyspnea, etiology undetermined. 2. Well-controlled type 2 diabetes mellitus. 3. Morbid obesity. OPERATIONS AND PROCEDURES: Cardiac catheterization. COMPLICATIONS: None. CONSULTATIONS: Dr. Kohli. DISPOSITION: All home meds remain the same. Office followup with Dr. Fall in 1 week regarding continued evaluation of symptoms if they persist. JARRELL FALL MD DR: KRISTIE/nts JOB#: [id number] / [id number]
[2017-03-12] MEDS ORDERED: FLUCONAZOLE 100 MG TABLET. PO SCH (09:00)
== END 2017-03-07 20:20 | disposition home or self-care (01) | DRG 287 ==
LOC: ER 11:19 → ED HOLD 13:28 → 2 SOUTH 16:23
PROVIDERS: ADMIT Family Medicine; ATTEND Family Medicine
PROC: 4A023N7 Measurement of Cardiac Sampling and Pressure, Left Heart, Percutaneous Approach (ICD-10-PCS; principal; 2017-03-07)
PROC: B2111ZZ Fluoroscopy of Multiple Coronary Arteries using Low Osmolar Contrast (ICD-10-PCS; 2017-03-07)
PROC: B2151ZZ Fluoroscopy of Left Heart using Low Osmolar Contrast (ICD-10-PCS; 2017-03-07)
DX: R07.89 Other chest pain (principal); Z68.42 Body mass index [BMI] 45.0-49.9, adult; E11.43 Type 2 diabetes mellitus with diabetic autonomic (poly)neuropathy; E66.01 Morbid (severe) obesity due to excess calories; I10 Essential (primary) hypertension; K21.9 Gastro-esophageal reflux disease without esophagitis; E78.5 Hyperlipidemia, unspecified; Z96.659 Presence of unspecified artificial knee joint; F32.9 Major depressive disorder, single episode, unspecified; K31.84 Gastroparesis; Z79.4 Long term (current) use of insulin; Z90.710 Acquired absence of both cervix and uterus; Z88.5 Allergy status to narcotic agent; Z88.8 Allergy status to other drugs, medicaments and biological substances
CPT/HCPCS: 36415; 71010; 80053; 81001; 82947; 83735; 83880; 84484; 85027; 85379; 85610; 87086; 87186; 93005; 93306; 93458; C1769; C1771; C1892; J1815; J2250; J3010; Q0162; Q9967; 99285-25

== ENCOUNTER → 2018-10-31 | Outpatient (CLI) | payer MEDICARE ==
[2017-03-07 17:45] VITALS: BP 176/77
[~2018-10-31] MED LIST: BUPIVACAINE MPF 0.25% 10 ML VIAL. ONE; CALC500T30 PO; DULO60CA44 PO; ERYT250C8 PO; ESZO2TAB21 PO; FESO8TAB PO; FLUC200T4 PO; GABA300C18 PO; INSU100V8 SQ; INSU200I SQ; IOHEXOL 180 MG/ML 10 ML VIAL. ONE; MELO15TA23 PO; METF500T16 PO; METO50TA6 PO; MULT-246 PO; OMEP40CA5 PO; ROPI0.5T2 PO; SULF1TAB23 PO; TEMA15CA PO; TRIA0.2567 PO; methylPREDNISolone ACETATE 80 MG/ML VIAL. ONE
--- NOTE | 2018-11-01 03:16 | PAIN ---
DATE OF SERVICE: 10/31/2018 INITIAL CONSULTATION FOR PAIN CLINIC CHIEF COMPLAINT: Low back and right hip and lower extremity pain. HISTORY OF PRESENT ILLNESS: This is a 68-year-old female who presents with history of pain in the low back and right lower extremity for about 8 months or so, increasing, without result of any specific injury or accident she is aware of but worse with walking, standing, change in positions, sitting for prolonged periods, especially in the right posterior low back and hip. The patient reports that it is radiating pain into the right leg as well, posterior gluteus, posterior thigh, lateral thigh, anterior thigh, medial thigh, medial lower leg and posterior lower leg into the foot. The patient reports the pain is in the back, is constant, sharp, shooting in her leg radiating down the right leg, aching and burning in the back as well, somewhat worse with prolonged sitting by more than 30 minutes. The patient reports it awakens her from sleep about 3 times at night, does not affect her bowel or bladder control but does affect her ability to walk fairly significantly. She has been favoring her right leg. The patient reports she has had physical therapy in the past, nothing recently, also chiropractic treatment exercise, none of which helped significantly for a very long period of time. The patient did have a sacroiliac joint injection in 2013, which helped significantly with the pain in the right posterior hip and it feels very similar to that at this time by her report. The patient reports a disability rate from 0-10, 10 being the worst, is a 6 with family and home responsibilities, social activity, occupation, 8 with recreational activities, 5 with sexual behavior, 1 with self-care and 5 with life-support activities. The patient reports no loss of motor function with significant fatigability of the right leg with activity, especially walking. PAST MEDICAL HISTORY: Significant for diabetes, now diet controlled; hypertension; gastroesophageal reflux; bradycardia; incontinence of stool and bladder with a bladder stimulator placed, which improved symptoms significantly; history of depression; vertigo and arthritis. PAST SURGICAL HISTORY: Previous surgeries include lap band procedure, bladder stimulator, bilateral carpal tunnel release, hysterectomy, Sravani-en-Y, bilateral total knee replacement and cholecystectomy. CURRENT MEDICATIONS: Include duloxetine, temazepam, omeprazole, calcium and multivitamin. ALLERGIES: The patient is allergic to CODEINE and ADHESIVES. FAMILY HISTORY: Significant for cancers, high blood pressure, diabetes, lung cancer and asbestosis. SOCIAL HISTORY: The patient does not drink alcohol; does not smoke and does not use any illegal, illicit or recreational drugs. She is , lives with her spouse locally in [place], [place]. No children living in the home and reports that she is currently retired. REVIEW OF SYSTEMS: The patient's review of systems is positive for those items mentioned in history of present illness. All systems reviewed and otherwise negative. It is complete, full and well documented on the patient's chart. PHYSICAL EXAMINATION: VITAL SIGNS: The patient's blood pressure is 157/64, pulse 66, respirations 16 and temperature 98.8 degrees Fahrenheit. Height is 5 feet 3 inches and weight is 170 pounds. GENERAL: The patient is awake, alert, oriented, appropriate and very pleasant demeanor. HEENT: Head shows normocephalic and atraumatic. Extraocular movements are intact and symmetrical. Oral cavity: Mucous membranes moist and pink. Dentition is intact. NECK: Shows anterior throat supple without palpable lymphadenopathy noted. Swallow reflex symmetrical. CHEST: Shows normal with inspection. Breath sounds clear to auscultation bilaterally. HEART: Shows S1 and S2 clear. No murmurs auscultated. ABDOMEN: Soft, nontender and nondistended. No palpable organomegaly is noted. No rebound or guarding demonstrated. BACK: Shows spine grossly in the midline. Normal appearing thoracic kyphosis and lumbar lordotic curvature. Lumbar paraspinous muscle shows symmetrical on inspection, on palpation shows some mild tenderness but only diffusely in the low lumbar distribution bilaterally without radiation. The patient shows good rotational motion of the lumbar spine both laterally as well as extension and flexion greater than 10 degrees as well as forward flexion 45 degrees without significant pain reported. The patient shows [id number]-qv-[id number] tenderness in the inferior aspect of the right sacroiliac region but not the left. Left is nontender. No tenderness over the sacrum itself over the spinous processes. EXTREMITIES: The patient's lower extremities show deep tendon reflexes at 2+ in the patellar, 1+ tendo-calcaneus tendons. Motor exam is strong with 5/5 dorsiflexion, extension, quadriceps and hamstring flexion. The patient has a positive Gaenslen's maneuver on the right side with external rotation of the hip and posterior displacement of the leg over the side of the bed, very significantly painful in the right posterior hip and low back, left side is negative. Straight leg raise noted to be positive on the right as well but about 40 degrees with pain radiating to the posterior hamstring as well as into the calf. This is decreased with knee flexion. Left side is again negative. Peripheral pulses are 1+ posterior tibia. No peripheral edema is noted. Lower extremities are warm and dry to touch, equal in color and appearance. The patient is able to stand, stand on her toes without difficulty or loss of balance, walks with a slight favoring gait, appears to favor the right lower extremity, not using any assistive devices such as canes or walkers at times. The patient's skin shows warm and dry, good turgor. No edema. No sores, bruises or rashes. IMPRESSION: 1. This is a 68-year-old female with approximately 8-month history of increasing low back pain, right lower extremity pain and also radicular pain in the right lower extremity consistent with sacroiliitis as well as lumbar radiculopathy. 2. Arthritis. 3. Hypertension. 4. History of diabetes. PLAN: Options were discussed with the patient including conservative medical management, physical therapy, interventional techniques. She would like to pursue interventional techniques. We discussed a right sacroiliac joint injection using description as well as anatomical models to describe the procedure. Risks were then discussed including, but not limited to bleeding, infection, possibility of intravascular injection sequelae, spread of local anesthetic and numbness, side effects of steroid medication, exposure to fluoroscopy and poor results regarding pain control. The patient understands and wished to proceed. The patient will return to the clinic in approximately 2 weeks for followup, was counseled as to return appointment, activity level and side effects to be aware of. Also discussed the possibility of a lumbar epidural steroid injection as the pain in the sacroiliac region is improved but the radicular pain continues and she does have significant disk bulging at L4-L5 as well as L5-S1 with encroachment of the right neural foramen at L4-L5. The patient understands and agrees and will follow up in approximately 2 weeks as scheduled. DIAGNOSIS: Right sacroiliitis. PROCEDURE: Right sacroiliac joint injection using C-arm fluoroscopic guidance under sterile prep and drape using local anesthetic. MEDICATION INJECTED: A total of 80 mg Depo-Medrol plus 3 mL of 0.25% bupivacaine and 2 mL of Isovue for contrast. CONDITION AT DISCHARGE: Stable. The patient tolerated the procedure well and had no complications. NA BLACKWELL MD DR: TEJAL/belle JOB#: [id number] / [id number]
== END | disposition home or self-care (01) ==
LOC: PNCL 09:13
PROVIDERS: ATTEND Anesthesiology
DX: M46.1 Sacroiliitis, not elsewhere classified (principal); I10 Essential (primary) hypertension; E11.9 Type 2 diabetes mellitus without complications; M19.90 Unspecified osteoarthritis, unspecified site; K21.9 Gastro-esophageal reflux disease without esophagitis; F32.9 Major depressive disorder, single episode, unspecified; Z98.84 Bariatric surgery status; Z90.49 Acquired absence of other specified parts of digestive tract; Z96.653 Presence of artificial knee joint, bilateral; Z90.710 Acquired absence of both cervix and uterus; Z98.890 Other specified postprocedural states; Z79.899 Other long term (current) drug therapy; Z88.5 Allergy status to narcotic agent; Z88.8 Allergy status to other drugs, medicaments and biological substances; Z83.3 Family history of diabetes mellitus; Z82.49 Family history of ischemic heart disease and other diseases of the circulatory system; Z80.1 Family history of malignant neoplasm of trachea, bronchus and lung; Z79.84 Long term (current) use of oral hypoglycemic drugs
CPT/HCPCS: G0260; J1040; J3490; Q9965; 27096

== ENCOUNTER → 2018-11-14 | Outpatient (CLI) | payer MEDICARE ==
[2017-03-07 17:45] VITALS: BP 176/77
[~2018-11-14] MED LIST changes: +AMLO2.5T3 PO; -BUPIVACAINE MPF 0.25% 10 ML VIAL. ONE; +methylPREDNISolone ACETATE 40 MG/ML VIAL. ONE
--- NOTE | 2018-11-14 11:27 | PAIN ---
DATE OF SERVICE: 11/14/2018 PROGRESS NOTE FOR PAIN CLINIC DIAGNOSES: Lumbar radiculopathy with lumbar degenerative disk disease. HISTORY OF PRESENT ILLNESS: The patient is a 68-year-old female who returns for followup status post right sacroiliac joint injection. The patient reports no significant improvement after the injection maybe for more than a day. The patient reports she still has significant pain in the low back radiating to the right lower extremity, posterior gluteus, posterior lateral thigh, lateral anterior thigh, medial thigh, medial knee on the right side, worse with walking, standing, changing positions. The patient reports no new motor or sensory deficits, no new bowel or bladder incontinence. She rates her pain at 9 on a scale of 10 at its worst, 8 on average, 7 at its least and is an 8 today. The patient reports it is aching, sharp, burning, radiating, becoming more constant, worse with walking, standing, changing positions. The patient reports it is awakening her from sleep least once or twice at night. The patient reports no new motor or sensory deficits, no bowel or bladder incontinence. PHYSICAL EXAMINATION: VITAL SIGNS: The patient's blood pressure 125/67, pulse 64, respirations 18, temperature 98.4 degrees Fahrenheit, height is 5 feet 3 inches, weight is 168 pounds. GENERAL: The patient is awake, alert, oriented, appropriate, very pleasant demeanor. HEENT: Head shows normocephalic, atraumatic. Extraocular movements are intact and symmetrical. Oral cavity: Mucous membranes moist and pink. Dentition intact. NECK: Shows anterior throat supple without palpable lymphadenopathy noted. Swallow reflex symmetrical. CHEST: Shows normal on inspection. Breath sounds clear to auscultation bilaterally. HEART: Shows S1, S2 clear. No murmurs auscultated. ABDOMEN: Soft, nontender, nondistended. No palpable organomegaly is noted. No rebound or guarding demonstrated. BACK: Shows spine grossly in the midline. The patient's lumbar paraspinous muscle shows symmetrical on inspection. On palpation shows some moderate tenderness only diffusely in the low lumbar distribution, more on the right than the left, but without trigger points, without radiation. The patient has good rotational motion both laterally as well as extension and flexion without significant pain reported. EXTREMITIES: Lower extremities show deep tendon reflexes at 2+ in the patellar, 1+ tendo-calcaneus tendons are equal. Motor exam is strong with 5/5 dorsiflexion, extension, quadriceps and hamstring flexion and equal. Peripheral pulses are 1+ posterior tibia. No peripheral edema is noted bilaterally. PLAN: Options were discussed with the patient. The patient's old chart was reviewed as her current medication regimen updated. Current review of systems updated today as well. We will proceed with a lumbar epidural steroid injection today with fluoroscopic guidance. Risks were again discussed including, but not limited to bleeding, infection, possibility of epidural hematoma, subsequent neurologic compromise, dural puncture, headaches, spinal cord and/or nerve damage, side effects of steroid medication and poor results regarding pain control. The patient understands and wished to proceed. The patient will return to clinic in approximately 2 weeks for followup, was counseled to return appointment, activity level and side effects to be aware of. DIAGNOSES: Lumbar radiculopathy with lumbar degenerative disk disease. PROCEDURE: Lumbar epidural steroid injection, translaminar approach L4-L5 level using C-arm fluoroscopic guidance under sterile prep and drape using local anesthetic. MEDICATION INJECTED: A total of 120 mg Depo-Medrol plus 10 mL of preservative-free normal saline and 2 mL of Isovue for contrast. CONDITION AT DISCHARGE: Stable. The patient tolerated the procedure well, had no complications. NA BLACKWELL MD DR: TEJAL/belle JOB#: [id number] / [id number]
== END | disposition home or self-care (01) ==
LOC: PNCL 08:51
PROVIDERS: ATTEND Anesthesiology
DX: M51.16 Intervertebral disc disorders with radiculopathy, lumbar region (principal); Z88.5 Allergy status to narcotic agent; Z88.8 Allergy status to other drugs, medicaments and biological substances
CPT/HCPCS: 62323; J1030; J1040; Q9965

== ENCOUNTER → 2018-12-08 | Outpatient (CLI) | payer MEDICARE ==
[2017-03-07 17:45] VITALS: BP 176/77
[~2018-12-08] MED LIST changes: -AMLO2.5T3 PO; +AMLO2.5T5 PO; -IOHEXOL 180 MG/ML 10 ML VIAL. ONE; -methylPREDNISolone ACETATE 40 MG/ML VIAL. ONE; -methylPREDNISolone ACETATE 80 MG/ML VIAL. ONE
--- NOTE | 2018-12-08 11:06 | PAIN ---
DATE OF SERVICE: 12/08/2018 DIAGNOSIS: Lumbar radiculopathy with lumbar degenerative disk disease. HISTORY OF PRESENT ILLNESS: The patient is a 68-year-old female who returns for followup status post lumbar epidural steroid injection x 1. Reports about 85% improvement; doing very well; increasing her activity with greater ease and comfort; walking better, greater distances; doing household activities; sleeping well at night; does not awaken her from sleep. The patient reports she is very pleased, she is doing quite well. Pain is not returning significantly in the right lower extremity, but does occasionally, but nothing like it was. The patient reports she is very pleased with her progress, reports her pain is 5 on a scale of 10 at its absolute worst, 3 on average, 1 at its least and is 1 today. The patient reports it is aching, dull, burning, occasionally shooting again on the right side but again very insignificant. The patient reports no new motor or sensory deficits, no new bowel or bladder incontinence or other complaints. PHYSICAL EXAMINATION: VITAL SIGNS: The patient's blood pressure is 139/66, pulse 64, respirations 16, temperature is 98.3 degrees Fahrenheit. Height is 5 feet 3 inches, weighs 173 pounds. GENERAL: The patient is awake, alert, oriented, appropriate, very pleasant demeanor. HEENT: Shows normocephalic, atraumatic. Extraocular movements intact and symmetrical. Oral cavity: Mucous membranes moist and pink. Dentition: Intact. NECK: Shows anterior throat supple without palpable lymphadenopathy noted. Swallow reflex is symmetrical. CHEST: Shows normal on inspection. Breath sounds clear to auscultation bilaterally. HEART: Shows S1, S2 clear. No murmurs auscultated. ABDOMEN: Soft, nontender, nondistended. No palpable organomegaly is noted. No rebound or guarding demonstrated. BACK: Shows spine grossly in the midline. Lumbar paraspinous muscle shows symmetrical on inspection, with palpation showing mild tenderness in the low lumbar distribution bilaterally but only diffusely without radiation. The patient has good rotational motion of lumbar spine, both laterally as well as extension and flexion without difficulty. EXTREMITIES: Lower extremities show deep tendon reflexes 2+ in the patellar and 1+ tendo calcaneus tendons. Motor exam is strong with 5/5 dorsiflexion, extension, quadriceps and hamstring flexion and symmetrical. Peripheral pulses are 1+ posterior tibial. No peripheral edema is noted bilaterally. ASSESSMENT AND PLAN: Options were discussed with the patient. The patient's old chart was reviewed as her current medication regimen updated. Current review of systems updated today as well. We will hold on any further injections at this time per the patient's request as she is doing quite well. She was encouraged to increase her activity as tolerated and if the symptoms start to return, she will follow up on as needed basis at that time. The patient is also reporting some cervical radicular pain. She will have that followed up with her primary care physician with imaging to be scheduled soon. NA BLACKWELL MD DR: TEJAL/belle JOB#: [id number] / [id number]
== END | disposition home or self-care (01) ==
LOC: PNCL 08:59
PROVIDERS: ATTEND Anesthesiology
DX: M51.16 Intervertebral disc disorders with radiculopathy, lumbar region (principal)
CPT/HCPCS: G0463

== ENCOUNTER 2019-03-10 07:25 | Outpatient (CLI) | payer MEDICARE ==
[2019-03-10] MEDS ORDERED: IOHEXOL 300 MG/ML 50 ML VIAL. IT ONE (07:45)
[2019-03-10 09:20] VITALS: BP 126/65
[2019-03-10 09:54] VITALS: BP 140/61
--- NOTE | 2019-03-10 10:02 | NUR ---
Discharge Note: SHAHEED MAZARIEGOS Discharge instructions and discharge home medications reviewed with Patient and a copy given. All questions have been answered and understanding verbalized. The following instructions and handouts were given: post myelogram care Discontinued lines and drains: no lines to be discontinued. Patient received her CD with images to take to her appointment. Patient discharged to Home or Self Care withFamily Member[facility]. Patient was going to cafeteria for food and then to Dr. Young's office in the medical building for a 1100 appointment.
--- NOTE | 2019-03-10 11:25 | RAD ---
Cervical myelogram, 03/10/2019: History: Cervical radiculopathy, left arm pain Under local anesthesia, aseptic conditions and fluoroscopic guidance a lumbar puncture was performed at the mid L3 level utilizing a 25-gauge Maddy spinal needle. Good clear CSF flow was obtained following which 11 cc of Omnipaque 300 was injected into the thecal sac. The spinal needle was then removed and hemostasis obtained. Appropriate digital imaging of the cervical region was then performed. 3.0 minutes of fluoroscopy time is utilized. 15 fluoroscopic spot images were recorded. The patient tolerated the procedure well and was sent to CT in good condition. The following findings are delineated on the myelogram: 1. With the patient's neck extended there was partial obstruction to flow of the contrast material superiorly at the C6-7 level. 2. There are mild anterior extradural defects at C3-4-5, C5-6 and C6-7 with mild associated central spinal stenosis at C6-7. 3. There is poor opacification of the C5-6 and C6-[address] of the cervical spine-post myelogram, 03/10/2019: Multidetector CT imaging was performed with multiplanar reconstructions produced. The following findings are delineated: 1. No significant posterior disc bulge or protrusion is seen at C2-3 and C3-4. There are mild degenerative changes involving the facet joints. The central spinal canal and neural foramina are well maintained. 2. At C4-5 there is mild posterior disc bulging at the midline. The thecal sac measures 9-10 mm in AP diameter of midline. The neural foramina are well maintained. 3. At C5-6 there is moderate disc space narrowing with anterior and posterior marginal spurring. The posterior spurring is greatest on the left with severe narrowing of the medial aspect of the left neural foramen. There is moderate right foraminal narrowing at this level. The thecal sac narrows down to an AP diameter of 8-9 mm at the midline. 4. At C6-7 there is also disc space narrowing with anterior and posterior marginal spurring. There is mild posterior disc protrusion at the midline. The posterior spurring is most prominent just to the right of midline. The thecal sac narrows down to an AP diameter 7 mm at the midline. There is moderate to severe bilateral foraminal narrowing due to the spurring. 5. At C7-T1 there is disc space narrowing with mild anterior and posterior marginal spurring. The posterior spurring is worse on the right with moderate right bony foraminal stenosis and mild left foraminal narrowing. The thecal sac measures 10 mm in AP diameter at the midline. 6. Incidental note is made of calcific plaquing of the carotid bifurcations. The thyroid gland is heterogeneous and contains several small nonspecific low-density nodules. IMPRESSION: 1. Moderate multilevel degenerative changes as described above. 2. Moderate central spinal stenosis at C6-7 and to a lesser degree C5-6, with moderate to severe bony foraminal narrowing bilaterally at both of these levels. PQRS Compliance Statement: One or more of the following individualized dose reduction techniques were utilized for this examination: 1. Automated exposure control 2. Adjustment of the mA and/or kV according to patient size 3. Use of iterative reconstruction technique
[2019-03-27] MEDS ORDERED: AMLO5TAB10 PO (13:13)
[2019-03-27] MEDS ORDERED: FEXO1TAB27 PO (13:13)
== END 2019-03-10 10:00 | disposition home or self-care (01) ==
LOC: RAD 07:25
PROVIDERS: ATTEND Neurological Surgery
DX: M48.03 Spinal stenosis, cervicothoracic region (principal); M47.22 Other spondylosis with radiculopathy, cervical region; M50.123 Cervical disc disorder at C6-C7 level with radiculopathy; I10 Essential (primary) hypertension; Z88.8 Allergy status to other drugs, medicaments and biological substances
CPT/HCPCS: 72126; 72240; Q9967

== ENCOUNTER → 2019-03-27 | Outpatient (CLI) | payer MEDICARE ==
[2019-03-10 09:54] VITALS: BP 140/61
[~2019-03-27] MED LIST changes: +AMLO5TAB10 PO; +DOCU-109 PO; +FEXO1TAB27 PO; +HYDR-2761 PO; +METH750T2 PO
--- NOTE | 2019-03-31 10:54 | NUR ---
PATIENT MRSA REPORT POSITIVE AND CALLED 'S OFFICE AND NOTIFIED KO, OFFICE STAFF AND SHE SAID SHE WILL GIVE THE MESSAGE TO KWESI Mccall APRN/VIDYA OLIVIA.
== END | disposition home or self-care (01) ==
LOC: SURGPAT 12:06
PROVIDERS: ATTEND Neurological Surgery
DX: Z01.818 Encounter for other preprocedural examination (principal); M48.02 Spinal stenosis, cervical region; M54.12 Radiculopathy, cervical region; Z91.048 Other nonmedicinal substance allergy status
CPT/HCPCS: 36415; 87641

== ENCOUNTER 2019-04-03 07:34 | Inpatient (IN) | payer MEDICARE ==
--- NOTE | 2019-04-02 15:35 | PREOP HP ---
DATE OF SERVICE: Yves Ibarra dictating for Dr. Armen Navarro. Date of surgery will be 04/03/2019. HISTORY OF PRESENT ILLNESS: The patient is a pleasant 68-year-old who has problems with neck and shoulder pain, left greater than right. The majority of the pain radiates into the left neck and then the left shoulder and then down the left arm. The problem has been present for about one year. She rates her pain as a 6-7/10. She says her pain is relatively constant. Although the evenings are the worst. She has been doing physical therapy exercises at home without benefit. She has physical therapy formally a number of years ago and has been doing her exercises recently without benefit. She does notice some unsteadiness with walking. Right arm is not involved. She takes ibuprofen and Tylenol to help with pain. PAST MEDICAL HISTORY: Arthritis, artificial joint, cold sores and fever blisters, headaches and migraines, hypertension, shingles, tonsillitis, ulcers, diabetes. PAST SURGICAL HISTORY: She has had a cholecystectomy in 1969, hysterectomy in 1996, carpal tunnel release bilaterally in 2001, knee replacement in 2009, lap band surgery in 2004, and gastric bypass in 2016. FAMILY HISTORY: Cancer, diabetes. SOCIAL HISTORY: Retired. . Rarely exercises. Denies substance abuse. Denies tobacco use. Quit smoking 10 years ago. Drinks alcohol 1-2 times per year. Drinks tea daily. ALLERGIES: To ADHESIVES. CURRENT MEDICATIONS: Duloxetine, amlodipine besylate, omeprazole, triazolam, Citlalli, Tylenol and ibuprofen. REVIEW OF SYSTEMS: A 12-point review of systems was obtained and is noncontributory except for that mentioned above. PHYSICAL EXAMINATION: NEUROSURGERY EXAMINATION: GENERAL APPEARANCE: Alert, pleasant, in no acute distress. HEAD: Normocephalic and atraumatic. NECK AND THYROID: Mild to moderate tenderness with palpation of posterior cervical region. SKIN: Warm and dry. MUSCULOSKELETAL: Cervical paraspinal muscle bulk is normal, restricted range of motion of the cervical spine, normal range of motion of the upper extremities bilaterally. EXTREMITIES: No clubbing, cyanosis or edema. NEUROLOGIC: Alert and oriented x 3, normal recent and remote memory, strength 5/5 in bilateral lower extremities, sensory is intact to light touch in bilateral upper and lower extremities except for subjective decrease in light touch involving her left hand diffusely, reflexes are trace and symmetric in the upper and lower extremities bilaterally, unsteady gait, unable to tandem walk. IMAGING: Imaging reviewed. I reviewed her cervical myelogram and post-myelogram CT scan. On that study, there was a partial obstruction of flow of contrast material at C6-C7 level. There was poor opacification of C5-C6 nerve roots bilaterally. There was moderate central canal stenosis at C6-C7 and to a lesser degree at C5-C6 with severe bony foraminal narrowing bilaterally at both of these levels. ASSESSMENT: 1. Spinal stenosis, cervical region. 2. Radiculopathy, cervical region. PLAN: I believe the problems at C5-C6 and C6-C7 are responsible for her pain. The problem has been present for a year and has not improved despite conservative measures. My recommendation at this point is that she should consider a 2-level anterior cervical microdiskectomy and fusion. I did discuss this with her in detail, the technique and expected postoperative course. She understands. She would like to go ahead. We will make the arrangements. ARMEN NAVARRO MD DR: ALVERTO/belle JOB#: [id number] / [id number]
[~2019-04-03] VITALS: Ht 162.6 cm; Wt 83.9 kg
[~2019-04-03 07:34] MED LIST changes: +BACITRACIN 50,000 UNIT in IV NORMAL SALINE 1000ML BAG 1,000 ML IRR ONE; +BUPIVAC MPF-EPI 0.5%-1:200000 30 ML VIAL. ONE; -DOCU-109 PO; +GELATIN SPONGE SIZE 12-7MM SPONGE. ONE; -HYDR-2761 PO; +IV RINGERS,LACTATED 1000ML 1,000 ML IV SCH; +LIDOCAINE 1% PF 2 ML VIAL. ID PRN; -METH750T2 PO; +ONDANSETRON PF 4 MG/2 ML VIAL. IV PRN; +PROCHLORPERAZINE 10 MG/2 ML VIAL. IV PRN; +THROMBIN TOPICAL 20,000 UNIT SPRAY.SYRN KIT TP ONE; +VANCOMYCIN 1GM IVPB FOR OMNI 250 ML IV PRN; +fentaNYL PF VIAL 100 MCG/2 ML VIAL IV PRN
[2019-04-03] MEDS ORDERED: SCOPOLAMINE 1.5MG PATCH. TD ONE (09:30)
[2019-04-03] MEDS ORDERED: PROPOFOL 20 ML IV ONE ×2 (10:48→14:25)
[2019-04-03] MEDS ORDERED: REMIFENTANIL 2 MG VIAL. IV ONE (10:48)
[2019-04-03] MEDS ORDERED: ONDANSETRON PF 4 MG/2 ML VIAL. ONE (10:48)
[2019-04-03] MEDS ORDERED: PROPOFOL 50 ML IV ONE ×2 (10:48→12:47)
[2019-04-03] MEDS ORDERED: fentaNYL PF VIAL 100 MCG/2 ML VIAL ONE ×2 (10:48→15:23)
[2019-04-03] MEDS ORDERED: MIDAZOLAM HCL/PF 2 MG/2 ML VIAL. ONE (10:48)
[2019-04-03] MEDS ORDERED: LIDOCAINE 2% PF 5 ML VIAL. ONE (10:48)
[2019-04-03] MEDS ORDERED: DEXAMETHASONE SOD PHOS 20 MG/5 ML VIAL. ONE (10:48)
[2019-04-03] MEDS ORDERED: ROCURONIUM 50 MG/5 ML VIAL. ONE (10:49)
[2019-04-03] MEDS ORDERED: SUCCINYLCHOLINE 200 MG/10 ML VIAL. ONE (10:49)
[2019-04-03] MEDS ORDERED: ePHEDrine PF IN SALINE 50 MG/10 ML SYRINGE. IV ONE (11:53)
[2019-04-03] MEDS ORDERED: GLYCOPYRROLATE 1 MG/5 ML VIAL. ONE (11:55)
[2019-04-03] MEDS ORDERED: PHENYLEPHRINE 10 MG/ML VIAL. ONE (12:06)
[2019-04-03] MEDS ORDERED: PHENYLEPHRINE in 0.9% NACL PF 1 MG/10 ML SYRINGE. IV ONE (12:06)
[2019-04-03] MEDS ORDERED: DESFLURANE > 120 MINUTES IH ONE (12:57)
[2019-04-03] MEDS ORDERED: ONDANSETRON ODT 4 MG TAB.RAPDIS. PO PRN (17:15)
[2019-04-03] MEDS ORDERED: HYDROcodone/APAP 5/325MG 1 TAB TABLET PO PRN ×2 (17:15→17:30)
[2019-04-03] MEDS ORDERED: fentaNYL PF VIAL 100 MCG/2 ML VIAL IV PRN (17:15)
[2019-04-03] MEDS ORDERED: DOCUSATE SODIUM 100 MG CAPSULE. PO PRN (17:15)
[2019-04-03] MEDS: POTASSIUM CL 20MEQ IN D5W 1,000 ML IV SCH (17:43)
[2019-04-03 19:00] VITALS: BP 122/60
--- NOTE | 2019-04-03 20:57 | OP ---
DATE OF SURGERY: 04/03/2019 PREOPERATIVE DIAGNOSES: Cervical spinal stenosis and cervical radiculopathy, C5-C6, C6-C7. POSTOPERATIVE DIAGNOSES: Cervical spinal stenosis and cervical radiculopathy, C5-C6, C6-C7. OPERATION PERFORMED: Anterior cervical microdiscectomy C5-C6, C6-C7; anterior cervical interbody fusion, C5-C6, C6-C7 with interbody fusion cage packed with allograft bone; anterior cervical plate C5, C6 and C7. The operation was done with multimodality monitoring including EMG, SSEP, motor evoked potentials, NIMS. We also used fluoroscopy, the microscope and microscopic dissection. SURGEON: Armen Navarro M.D. STEAM ENGINEER: DANIELE Narayan, assisted with the surgery. She assisted with the exposure, the 2-level discectomy and instrumentation closure. OPERATIVE INDICATIONS: The patient is a very pleasant 68-year-old woman who developed intractable neck, shoulder and arm pain. The left side was more involved than the right and on imaging studies, she had significant stenosis with severe neural foraminal narrowing C5-C6 and C6-C7, which corresponded to her symptoms. I recommended an anterior cervical microdiscectomy and fusion. I spoke with her about the surgery and the risks involved. I spoke about the technique of the operation. I discussed expected postoperative course. She understood and she wished to go ahead. DESCRIPTION OF PROCEDURE: Following general endotracheal anesthesia, the patient was positioned supine on the operating room table. The anterior cervical region was prepped and draped in standard fashion. ALMA hose and AV impulse boots were applied for DVT prophylaxis. A microscope was draped. Fluoroscopy was draped and brought into the field and monitoring was established. Ancef and vancomycin were given preoperatively. Using fluoroscopic guidance, an incision was made from the midline around to the right side in a skin crease over the C6-C7 interspace. I dissected down through skin and subcutaneous tissue and I dissected around the medial aspect of the sternocleidomastoid and carotid artery sheath down the anterior cervical vertebral bodies. I did not use the Bovie, but used Metzenbaums for the approach as well as bipolar cautery for any bleeding along the skin edge. I reached the anterior cervical region and gently reflected the trachea and esophagus contralaterally. I assured myself that the carotid artery was lateral. I placed self-retaining retractors with a sharper blade and wedged in the longus colli muscle and the serrated blade contralaterally and I placed 14 mm pins in C6 and C7. I brought in the microscope during this time. I incised the anterior annulus. There was considerable hypertrophic bone which I drilled away. Then, with the high speed air drill, exposed the disc and I then performed a generous discectomy. First #11 blade followed by the 2 mm micro Kerrisons followed by pituitaries. I scraped cartilaginous endplate. I drilled the posterior spurring and trimmed this away with 2 mm and with 1 mm micro Kerrison's, I opened the annulus widely and fully decompressed. I distracted the disc space and I placed a 7 mm lordotic interbody fusion cage using Camber Spine. I finished at C6-C7 and I removed the pin from C7 and moved the retractor to C5-C6 and I performed the identical operation at C5-C6, again placing a 7 mm interbody fusion cage, which was packed with allograft bone. Both levels, I assured myself of absolutely perfect hemostasis prior to placement of the interbody fusion cage. I then placed a 30 mm anterior plate again using the Camber system with 14 mm screws. I placed superior and inferior screws first followed by the remaining screws. These were then locked, irrigated copiously, obtained fluoroscopic images, which looked quite good. The patient was then awakened and taken to recovery room in excellent condition with normal strength and speech. I was quite pleased with the surgery. ARMEN NAVARRO MD DR: ALVERTO/belle JOB#: [id number] / [id number] SONIA
[2019-04-03] MEDS ORDERED: TEMAZEPAM 15 MG CAPSULE PO SCH (21:00)
[2019-04-03] MEDS ORDERED: METH750T2 PO (21:43)
[2019-04-03] MEDS ORDERED: HYDR-2761 PO (21:43)
[2019-04-03] MEDS ORDERED: DOCU-109 PO (21:43)
[2019-04-03] MEDS ORDERED: METHOCARBAMOL 750 MG TABLET PO PRN (21:45)
[2019-04-03] MEDS ORDERED: DEXTROSE 50% 25 GM / 50ML DISP.SYRIN. IV PRN (21:45)
--- NOTE | 2019-04-03 21:45 | DISCH ---
DISCHARGE INSTRUCTIONS Condition on Discharge Condition on Discharge: Stable Activity After Discharge Activity Instructions for Disc: Activity as tolerated, Avoid exertion Other activity instructions: no driving for a week Bathing Instructions: Shower-keep dressing dry Lifting Instructions after Dis: No heavy lifting, Do not lift >10 pounds Driving Instructions after Dis: Other, see below Diet after Discharge Diet after Discharge: Cardiac, Diabetic No Calorie Level Additional Diet Restrictions: resume home diet Wound Incision Care Wound/Incision Care: Ice to area for comfort Other wound/incision instructi: may remove dressing in 48 hours if dry then may shower, no soaking Contacting the DRTone after DC Call your doctor for: Concerns you may have Follow-Up Follow up with: Dr. Navarro's nurse in 2 weeks [phone] Treatment/Equipment after DC Adaptive Equipment Issued: None JENNIFER NAVARRO MD April 03, 2019 21:45
[2019-04-03] MEDS: ceFAZolin SODIUM 1 GM in IV DEXTROSE 5% 50 ML IV SCH (21:53)
[2019-04-03 23:00] VITALS: BP 134/76
[2019-04-04 03:00] VITALS: BP 142/54
[2019-04-04] MEDS: ceFAZolin SODIUM 1 GM in IV DEXTROSE 5% 50 ML IV SCH (06:03)
[2019-04-04] MEDS: POTASSIUM CL 20MEQ IN D5W 1,000 ML IV SCH (06:10)
[2019-04-04 07:00] VITALS: BP 123/48
[2019-04-04] MEDS ORDERED: PANTOPRAZOLE 40 MG TABLET.DR. PO SCH (07:30)
[2019-04-04 08:40] VITALS: BP 123/48
[2019-04-04] MEDS ORDERED: amLODIPine BESYLATE 5 MG TABLET PO SCH (09:00)
[2019-04-04] MEDS ORDERED: CETIRIZINE HCL 10 MG TABLET. PO SCH (09:00)
[2019-04-04] MEDS ORDERED: DULoxetine HCL 30 MG CAPSULE.DR PO SCH (09:00)
[2019-04-04] MEDS ORDERED: PSEUDOEPHEDRINE ER 120 MG TABLET.ER. PO SCH (09:00)
--- NOTE | 2019-04-04 10:42 | NUR ---
Discharge instructions and belongings reviewed with patient, verbalized understanding. Patient was escorted out via wheelchair by Rosa BURTON accompanied by her Dann.
--- NOTE | 2019-04-08 13:08 | PATHOLOGY ---
[facility] Accession Number: [id number] . 01 Material submitted: . cervix - CERVICAL DISC . 01 Clinical history: . CERVICAL STENOSIS . 02 Diagnosis: Fragments of bone and cartilage and soft tissue "cervical disc": - Fragments of bone, cartilage and soft tissue consistent with disc material. (SHA:[place]; 04/08/2019) QMS/04/08/2019 . 02 Electronically signed: . Miguel Peralta MD, Pathologist NPI- [id number] . 01 Gross description: . The specimen is received in formalin, labeled "Stefany Dutta, cervical disc", are multiple irregular fragments of gonzalez and white and gritty tissue possibly admixed with bone spicule measuring 1.2 x 1.0 x 0.3 cm in aggregate. The specimen is entirely submitted in A1 after decalcification. ([facility]; 04/06/2019) SHS/SHS . 02 Pathologist provided ICD-10: M48.02 . 02 CPT . 566704, [id number] Specimen Comment: A courtesy copy of this report has been sent to Specimen Comment: [phone], . Specimen Comment: Report sent to / DR GARCIA Performed at: 01 [facility] [address], [place], [place] [id number] MD Urbano Brantley MD Phone: [phone] Performed at: 02 [facility] [address] [place], [place] [id number] MD Ty Champion MD Phone: [phone]
== END 2019-04-04 10:43 | disposition home or self-care (01) | DRG 473 ==
LOC: OPSVCIP 07:34 → 4 NORTH 16:21
PROVIDERS: ADMIT Neurological Surgery; ATTEND Neurological Surgery
PROC: 0RB30ZZ Excision of Cervical Vertebral Disc, Open Approach (ICD-10-PCS; 2019-04-03)
PROC: 4A11X4G Monitoring of Peripheral Nervous Electrical Activity, Intraoperative, External Approach (ICD-10-PCS; 2019-04-03)
PROC: 0RG20A0 Fusion of 2 or more Cervical Vertebral Joints with Interbody Fusion Device, Anterior Approach, Anterior Column, Open Approach (ICD-10-PCS; principal; 2019-04-03 10:30)
DX: M48.02 Spinal stenosis, cervical region (principal); M54.12 Radiculopathy, cervical region; M19.90 Unspecified osteoarthritis, unspecified site; G43.909 Migraine, unspecified, not intractable, without status migrainosus; I10 Essential (primary) hypertension; E11.9 Type 2 diabetes mellitus without complications; Z96.659 Presence of unspecified artificial knee joint; Z90.49 Acquired absence of other specified parts of digestive tract; Z90.710 Acquired absence of both cervix and uterus; Z98.84 Bariatric surgery status; Z83.3 Family history of diabetes mellitus; Z87.891 Personal history of nicotine dependence; Z91.048 Other nonmedicinal substance allergy status
CPT/HCPCS: 76000; 88304; 88311; A7015; C1713; J0171; J0330; J0690; J0696; J1100; J2001; J2250; J2370; J2405; J2704; J3010; J3370; J3490; J7030; J7042; J7120

== ENCOUNTER → 2019-06-10 | Outpatient (CLI) | payer MEDICARE ==
[~2019-06-10] MED LIST changes: -BACITRACIN 50,000 UNIT in IV NORMAL SALINE 1000ML BAG 1,000 ML IRR ONE; -BUPIVAC MPF-EPI 0.5%-1:200000 30 ML VIAL. ONE; +DOCU-109 PO; -DULO60CA44 PO; +DULO60CA45 PO; -GELATIN SPONGE SIZE 12-7MM SPONGE. ONE; +HYDR-2761 PO; -IV RINGERS,LACTATED 1000ML 1,000 ML IV SCH; -LIDOCAINE 1% PF 2 ML VIAL. ID PRN; +METH750T2 PO; -ONDANSETRON PF 4 MG/2 ML VIAL. IV PRN; -PROCHLORPERAZINE 10 MG/2 ML VIAL. IV PRN; -THROMBIN TOPICAL 20,000 UNIT SPRAY.SYRN KIT TP ONE; -VANCOMYCIN 1GM IVPB FOR OMNI 250 ML IV PRN; -fentaNYL PF VIAL 100 MCG/2 ML VIAL IV PRN
--- NOTE | 2019-06-10 13:51 | KCIC ---
CT LUMBAR SPINE WO CONTRAST History: Lumbar radiculopathy. Low back pain. History of bladder stimulator. Technique: Noncontrast CT was performed of the lumbar spine. Multiplanar reconstructions were performed. Exposure: One or more of the following individualized dose reduction techniques were utilized for this examination: 1. Automated exposure control 2. Adjustment of the mA and/or kV according to patient size 3. Use of iterative reconstruction technique. Comparison: None Findings: Minimal retrolisthesis L1 on L2. Otherwise, normal alignment. Normal vertebral body height. No fracture. T12-L1: No canal or neuroforaminal narrowing. L1-L2: Mild retrolisthesis. Small posterior disc bulge. No canal or neuroforaminal narrowing. L2-L3: As height loss. Broad-based posterior disc bulge. Mild facet arthropathy. Bilateral subarticular recess narrowing. No canal narrowing. Mild bilateral neural foraminal narrowing. L3-L4: Broad-based posterior disc bulge. Mild facet arthropathy. Ligamentum flavum thickening. Mild canal narrowing. Subarticular recess narrowing. Mild bilateral neural foraminal narrowing. L4-L5: Small posterior disc bulge. Moderate facet arthropathy. Ligament of flavum thickening. Mild canal narrowing. Bilateral subarticular recess narrowing. No neural foraminal narrowing. L5-S1: Small posterior disc bulge. Advanced right and moderate left facet arthropathy. No canal narrowing. No neuroforaminal narrowing. Left posterior bladder stimulator pack and lead noted extending inferiorly. Impression: 1. Mild to moderate multilevel lumbar spondylosis most prominent L3-L4 and L4-L5 contributing to mild canal and subarticular recess narrowing. 2. Mild multilevel neural foraminal narrowing. Electronically signed by: Charanjit Pichardo DO (06/10/2019 1:49 PM) [facility]
--- NOTE | 2019-06-10 13:53 | KCIC ---
EXAM: Sacrum and coccyx, 3 views. HISTORY: Pain with sitting. COMPARISON: None. FINDINGS: 3 views of the sacrum and coccyx are obtained. There is a generator overlying the left buttock with lead overlying the left sacrum. There is degenerative endplate remodeling with osteophytosis and facet arthropathy at the lower lumbar levels. The sacroiliac joints are intact. There are surgical anchors within the pubic bones. IMPRESSION: 1. No acute osseous finding. 2. Degenerative change involving the lower lumbar spine. 3. Generator within the left buttock with lead overlying the left sacrum. Electronically signed by: Lisa Montero MD (06/10/2019 1:51 PM) [facility]
--- NOTE | 2019-06-10 13:55 | KCIC ---
EXAM: Cervical spine, 3 views. HISTORY: Fusion. COMPARISON: 03/10/2019 FINDINGS: 3 views of the cervical spine are obtained. There is instrumented anterior spinal fusion and interbody fusion at C3-C7. There is straightening of cervical lordosis. There is mild anterior endplate remodeling predominantly at C4-C5. There is multilevel facet arthropathy. IMPRESSION: 1. Instrumented fusion at C5-C7. 2. Multilevel degenerative change, described above. Electronically signed by: Lisa Montero MD (06/10/2019 1:52 PM) [place] [id number]
== END | disposition home or self-care (01) ==
LOC: KCIC CT 12:36
PROVIDERS: ATTEND Neurological Surgery
DX: M47.26 Other spondylosis with radiculopathy, lumbar region (principal); M48.061 Spinal stenosis, lumbar region without neurogenic claudication; M53.86 Other specified dorsopathies, lumbar region; M46.86 Other specified inflammatory spondylopathies, lumbar region; M47.812 Spondylosis without myelopathy or radiculopathy, cervical region; M46.82 Other specified inflammatory spondylopathies, cervical region; Z98.1 Arthrodesis status
CPT/HCPCS: 72040; 72131; 72220

== ENCOUNTER → 2019-07-24 | Outpatient (CLI) | payer MEDICARE ==
[~2019-07-24] MED LIST changes: +BUPIVACAINE MPF 0.25% 10 ML VIAL. ONE; +methylPREDNISolone ACETATE 40 MG/ML VIAL. ONE
--- NOTE | 2019-07-24 09:47 | PN ---
DATE: 07/24/2019 PROGRESS NOTE FOR PAIN CLINIC DIAGNOSES: 1. Lumbar radiculopathy with lumbar degenerative disc disease. 2. Right sacroiliitis. 3. Cervical radiculopathy with cervical degenerative disc disease. 4. Myofascial pain. HISTORY OF PRESENT ILLNESS: The patient is a 69-year-old female who returns for followup status post lumbar epidural steroid injection as well as right sacroiliac joint injection, both with very good results. The patient reports 85% improvement. She has recently had an anterior cervical discectomy and fusion and his neck is doing much better, but she has some residual pain in the base of the neck and shoulders, more on the left than the right since the procedure. The patient reports her mobility is much better. She is feeling much better overall, but has some significant tightness, she has been going to physical therapy since March when her surgery was performed and is not quite worked out and still significantly tender and spastic up in the neck and shoulders, also in the low back as well. The patient reports some tenderness over the sacrum and coccyx as well while sitting. The patient reports some pain in the neck and shoulders, it is sharp, burning, constant, becoming severe and unbearable at times, worse with repeated activities, worse with using the left upper extremity, any weightbearing, keep her awake from sleep at night. The patient reports it is at 10 on a scale of 10, at its worst in the past week, 9 on average, 9 at its least and is at 9 today. The patient reports no new motor or sensory deficits. No new changes. PHYSICAL EXAMINATION: VITAL SIGNS: The patient's blood pressure 145/65, pulse 63, respirations are 16, temperature is 98.4 degrees Fahrenheit, height is 5 feet 3 inches and weight is 186 pounds. GENERAL: The patient is awake, alert, oriented, appropriate, very pleasant demeanor. HEENT: Shows normocephalic, atraumatic. Extraocular movements are intact and symmetrical. Oral cavity: Mucous membranes moist and pink. Dentition is intact. NECK: Shows anterior throat supple without palpable lymphadenopathy noted. Well-healed surgical scar is noted. Swallow reflex symmetrical. CHEST: Shows normal on inspection. Breath sounds clear to auscultation bilaterally. HEART: Shows S1, S2 clear. No murmurs auscultated. ABDOMEN: Soft, nontender, nondistended. No palpable organomegaly is noted. No rebound or guarding demonstrated. NECK: Shows good rotational motion of the cervical spine, both laterally as well as extension and flexion without significant increase in pain or difficulty. The patient's left trapezius and cervical musculature shows some very firm rope-like musculature with tenderness with palpation, but without radiation. There is 2 regions of this finding on the right side in the trapezius inferiorly and the lateral trapezius and inferior cervical musculature on the right, much more significant on the left with very firm rope-like musculature consistent with trigger point areas of muscle without radiation. This is true into the upper thoracic paraspinous musculature only on the left side as well. BACK: The patient's low back shows normal lordotic curvature. Lumbar paraspinous muscle shows symmetrical on inspection, with palpation shows some moderate tenderness and diffusely in the low lumbar distribution, more on the right than the left with tenderness and very firm rope-like musculature x 1 in the low lumbar paraspinous musculature on the right side, but again without radiation. EXTREMITIES: The patient's lower extremities show deep tendon reflexes 2+ in the patellar, 1+ in the tendo-calcaneus tendons. Motor exam is strong with 5/5 dorsiflexion, extension, quadriceps and hamstring flexion. Upper extremities show deep tendon reflexes 2+ in the biceps and triceps tendons. 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 ASSESSMENT AND PLAN: Options were discussed with the patient. The patient's old chart was reviewed as her current medication regimen updated. Current review of systems updated today as well. We will proceed with trigger point injections of the identified musculature. Risks were discussed including but not limited to bleeding, infection, possibility of intravascular injection sequelae, spread of local anesthetic and numbness, pneumothorax, side effects of steroid medication and poor results regarding pain control. The patient understands and wished to proceed. The patient will return to clinic in approximately 2 weeks for followup. She was counseled on return appointment, activity level and side effects to be aware of. DIAGNOSIS: Myofascial pain. PROCEDURE: Trigger point injections, bilateral trapezius, bilateral cervical paraspinous musculature and lumbar paraspinous musculature under sterile prep and drape using local anesthetic. MEDICATION INJECTED: A total of 8 mL of 0.25% bupivacaine and total of 40 mg Depo-Medrol after negative aspiration at each injection site. CONDITION AT DISCHARGE: Stable. The patient tolerated the procedure well, had no complications. NA BLACKWELL MD DR: TEJAL/belle JOB#: [id number] / [id number]
== END ==
LOC: PNCL 08:05
PROVIDERS: ATTEND Anesthesiology
DX: M79.18 Myalgia, other site (principal); M51.16 Intervertebral disc disorders with radiculopathy, lumbar region; M46.1 Sacroiliitis, not elsewhere classified; M50.10 Cervical disc disorder with radiculopathy, unspecified cervical region
CPT/HCPCS: 20553; J1030; J3490

== ENCOUNTER → 2019-08-13 | Outpatient (CLI) | payer MEDICARE ==
[~2019-08-13] MED LIST changes: +OMEP40CA45 PO; -OMEP40CA5 PO
--- NOTE | 2019-08-13 14:41 | PAIN ---
DATE OF SERVICE: 08/13/2019 PROGRESS NOTE FOR PAIN CLINIC PREOPERATIVE DIAGNOSES: 1. Myofascial pain. 2. Lumbar radiculopathy with lumbar degenerative disk disease. 3. Cervical radiculopathy with cervical degenerative disk disease. 4. Right sacroiliitis. HISTORY OF PRESENT ILLNESS: This is over 69-year-old female who returns for followup status post trigger point injections, bilateral trapezius musculature, cervical paraspinous musculature and lumbar musculature with very good results about 65% improvement until the last week. She was at an outdoor event and she reports she got very cold with shivering and the muscles became very tight and spastic. She is seeing physical therapy twice since then with a massage therapist and they were unable to get the trigger point areas massaged out in the shoulders bilaterally and in the low back as well as the base of the neck. The patient reports otherwise she is doing very well. She has increased distance walking, doing work and household activities, recreational activities. Now, the pain is beginning to return over the last week, which has been waking her from sleep every 2-3 hours at a time. The patient reports the pain is 8 on a scale of 10 at its worst, at this point 7 on average over the last week and 6 at its least, and is a 7 today. The patient reports it is aching, sharp, tight, burning and constant, made mostly in the left posterior shoulder and neck, but also on the right and in the low back as well. PHYSICAL EXAMINATION: VITAL SIGNS: The patient's blood pressure 160/70, pulse is 76, respirations 16, temperature 98.1 degrees Fahrenheit, height is 5 feet 3 inches, weight is 188 pounds. GENERAL: The patient is awake, alert, oriented, appropriate, very pleasant demeanor. HEENT: Shows normocephalic, atraumatic. Extraocular movements are intact and symmetrical. Oral cavity; mucous membranes moist and pink. Dentition is intact. NECK: Shows anterior throat supple. No palpable lymphadenopathy noted. Swallow reflex symmetrical. CHEST: Shows normal on inspection. Breath sounds are clear to auscultation bilaterally. HEART: Shows S1, S2 clear. No murmurs auscultated. ABDOMEN: Soft, nontender, nondistended. No palpable organomegaly is noted. No rebound or guarding demonstrated. BACK: Shows spine grossly in the midline. Normal appearing thoracic kyphosis and lumbar lordotic curvature. Paraspinous musculature in the cervical distribution shows significant tenderness in the inferior aspect of the left greater than right paraspinous musculature, a very firm rope-like musculature consistent with trigger point areas of musculature. This is true into the superior and lateral trapezius, especially on the left with very firm rope-like musculature bilaterally, very tender without specific radiation. The patient has good rotational motion of cervical spine, both laterally as well as extension and flexion. Shoulder shows good rotational motion both actively and passively. The patient's back shows spine grossly in the midline. Normal appearing thoracic kyphosis and lumbar lordotic curvature. Lumbar paraspinous muscle shows symmetrical with very firm rope-like musculature in the very inferior aspect of the lumbar distribution as well. Very firm rope-like musculature consistent with trigger point areas again on the left greater than the right. PLAN: Options were discussed with the patient. The chart was reviewed as her current medication regimen updated. Current review of systems updated today as well. We will proceed with trigger point injections of the identified musculature. Risks were discussed including but not limited to bleeding, infection, possibility of intravascular injection sequelae, spread of local anesthetic and numbness, pneumothorax, side effects of steroid medication and poor results regarding pain control. The patient understands and wished to proceed. The patient will return to clinic in approximately 2 weeks for followup. She was counseled as to return appointment, activity level and side effects to be aware of. The patient will continue with massage therapy and physical therapy as scheduled and continue stretching and strengthening exercises on her own as well as heat and massage techniques on her own as well. DIAGNOSIS: Myofascial pain. PROCEDURE: Trigger point injections, bilateral cervical paraspinous musculature, bilateral trapezius musculature, bilateral lumbar paraspinous musculature under sterile prep and drape using local anesthetic. MEDICATION INJECTED: The patient received a total of 40 mg Depo-Medrol plus total of 10 mL of 0.25% bupivacaine after negative aspiration at each injection site. CONDITION AT DISCHARGE: Stable. The patient tolerated the procedure well, had no complications. NA BLACKWELL MD DR: TEJAL/belle JOB#: [id number] / [id number]
== END ==
LOC: PNCL 13:01
PROVIDERS: ATTEND Anesthesiology
DX: M79.18 Myalgia, other site (principal); M51.16 Intervertebral disc disorders with radiculopathy, lumbar region; M50.10 Cervical disc disorder with radiculopathy, unspecified cervical region; M46.1 Sacroiliitis, not elsewhere classified
CPT/HCPCS: 20553; J1030; J3490

== ENCOUNTER → 2019-09-16 | Outpatient (CLI) | payer MEDICARE ==
[~2019-09-16] MED LIST changes: -BUPIVACAINE MPF 0.25% 10 ML VIAL. ONE; +CHOL500016 PO; +IOHEXOL 180 MG/ML 10 ML VIAL. ONE; +methylPREDNISolone ACETATE 80 MG/ML VIAL. ONE
--- NOTE | 2019-09-16 11:10 | PAIN ---
DATE OF SERVICE: 09/16/2019 PROGRESS NOTE FOR PAIN CLINIC DIAGNOSES: 1. Lumbar radiculopathy with lumbar degenerative disk disease. 2. Right sacroiliitis. 3. Cervical radiculopathy with cervical degenerative disk disease. 4. Myofascial pain. HISTORY OF PRESENT ILLNESS: The patient is a 69-year-old female who returns for followup status post trigger point injections, bilateral cervical paraspinous muscles as well as trapezius and lumbar paraspinous muscles with very good improvement. The patient reports about 60% improvement overall. The patient reports having sciatic pain now on the right side in the low back and into the right hip, posterior gluteus, lateral thigh, lateral anterior thigh, medial thigh, which is returning. She did have some treatment for this in November of this year, did very well with 85% improvement. The patient reports her pain now is becoming more noticeable with radiating pain in the right lower extremity in a radicular fashion, rates as a 7 on a scale of 10 at its worst in the past week, 6 on average, 4 at its least and is a 6 today. The patient reports it is aching, burning, on and off in intensity, worse with walking, standing, changing positions, better with sitting or resting. The patient reports it does awaken her from sleep occasionally, although is better, does still occasionally wake her from sleep. The patient reports she has increased her distance walking, doing household activities with greater ease and comfort after last visit as well. PHYSICAL EXAMINATION: VITAL SIGNS: The patient's blood pressure 131/65, pulse 63, respirations 16, temperature 98.6 degrees Fahrenheit, height is 5 feet 3 inches, weight is 187 pounds. GENERAL: The patient is awake, alert, oriented, appropriate, very pleasant demeanor. HEENT: Head shows normocephalic, atraumatic. Extraocular movements are intact and symmetrical. Oral cavity: Mucous membranes moist and pink. Dentition is intact. NECK: Shows anterior throat supple without palpable lymphadenopathy noted. Swallow reflex symmetrical. CHEST: Shows normal on inspection. Breath sounds clear to auscultation bilaterally. HEART: Shows S1, S2 clear. No murmurs auscultated. ABDOMEN: Soft, nontender, nondistended. No palpable organomegaly is noted. No rebound or guarding demonstrated. BACK: Shows spine grossly in the midline. Normal appearing thoracic kyphosis and some flattening of lumbar lordotic curvature. Lumbar paraspinous muscle shows symmetrical on inspection, with palpation shows some moderate tenderness diffusely bilaterally, but only diffusely without significant radiation. The patient has good rotational motion of lumbar spine, both laterally as well as extension and flexion without significant difficulty. EXTREMITIES: Lower extremities show deep tendon reflexes at 1+ in the patellar and tendo calcaneus tendons. Motor exam is strong with 5/5 dorsiflexion, extension, quadriceps and hamstring flexion symmetrical. Peripheral pulses are 1+ posterior tibia. No peripheral edema is noted bilaterally. Options were discussed with the patient. The patient's old chart was reviewed as well as her current medication regimen updated. Current review of systems updated today as well. We will proceed with a lumbar epidural steroid injection today with fluoroscopic guidance. Risks were again discussed including, but not limited to bleeding, infection, possibility of epidural hematoma, subsequent neurological compromise, dural puncture, headaches, spinal cord and/or nerve damage, side effects of steroid medication and poor results regarding pain control. The patient understands and wished to proceed. The patient will return to clinic in approximately 2 weeks for followup. She was counseled on return appointment, activity level and side effects to be aware of. DIAGNOSIS: Lumbar radiculopathy with lumbar degenerative disk disease. PROCEDURE: Lumbar epidural steroid injection, translaminar approach at L4-L5 level using C-arm fluoroscopic guidance under sterile prep and drape using local anesthetic. MEDICATION INJECTED: A total of 120 mg Depo-Medrol plus 10 mL of preservative-free normal saline and 2 mL of contrast. CONDITION AT DISCHARGE: Stable. The patient tolerated procedure well, had no complications. NA BLACKWELL MD DR: TEJAL/belle JOB#: [id number] / [id number]
== END ==
LOC: PNCL 12:36
PROVIDERS: ATTEND Anesthesiology
DX: M51.16 Intervertebral disc disorders with radiculopathy, lumbar region (principal); M79.18 Myalgia, other site; M46.1 Sacroiliitis, not elsewhere classified; M50.10 Cervical disc disorder with radiculopathy, unspecified cervical region
CPT/HCPCS: 62323; J1030; J1040; Q9965

== ENCOUNTER → 2020-06-29 | Outpatient (CLI) | payer MEDICARE ==
[~2020-06-29] MED LIST changes: +ERYT250C33 PO; -ERYT250C8 PO; -IOHEXOL 180 MG/ML 10 ML VIAL. ONE; +IOHEXOL 300 MG/ML 50 ML VIAL. IT ONE; +LIDOCAINE 1% Multi-Dose 20 ML VIAL. ID ONE; -ROPI0.5T2 PO; +ROPI0.5T4 PO; -methylPREDNISolone ACETATE 40 MG/ML VIAL. ONE; -methylPREDNISolone ACETATE 80 MG/ML VIAL. ONE
--- NOTE | 2020-06-29 13:31 | KCIC ---
EXAM: Fluoroscopic guided lumbar puncture for CT myelography; cervical spine CT metallic. HISTORY: Neck pain and left upper extremity radiculopathy. TECHNIQUE: The risks of the procedure were discussed with the patient and written and verbal consent was obtained. A timeout was performed. The patient was placed in a prone position on the fluoroscopic table and a site overlying L5-S1 was selected for needle entry. The skin overlying this region was sterilely prepped, draped and infiltrated with 1 percent lidocaine.. The needle was positioned appropriately and confirmed with a lateral image; however, no CSF was obtained to confirm appropriate intrathecal location. Therefore, using the same technique, the decision was made to proceed with a lumbar puncture at L4-L5. The needle was positioned and CSF was obtained. Subsequently, 12 cc of Omnipaque 300 intrathecal contrast was injected into the thecal sac. The needle was removed and a sterile bandage was placed at the needle entry site. The contrast column was advanced to the cervical levels and multiple fluoroscopic images were obtained. The patient tolerated the procedure without difficulty and was transferred to the CT suite for the post injection CT portion of the exam. CT images were obtained. The patient was then discharged in stable condition without immediate complication. 5 fluoroscopic images were obtained for a total fluoroscopy time of 2 minutes and 28 seconds. *One or more of the following individualized dose reduction techniques were utilized for this examination: 1. Automated exposure control. 2. Adjustment of the mA and/or kV according to patient size. 3. Use of iterative reconstruction technique. COMPARISON: 03/10/2019. FINDINGS: There is instrumented anterior spinal fusion and interbody fusion at C5-C7. There is no evidence of instrumentation loosening. The instrumentation consists of paired anterior body screws bridged by an anterior plate and disc space fusion devices. There is no listhesis. The nonfused vertebral bodies and disc spaces are normal in height. There is multilevel endplate remodeling and anterior predominant spurring. The skull base and posterior fossa are unremarkable. There is incidental partially calcified atherosclerotic plaque involving the carotid bifurcations. There is a 1.0 cm nodule or cyst within the left thyroid lobe. The lung apices are unremarkable. There is no neck lymphadenopathy. At C2-C3, there is mild left posterior lateral endplate remodeling. There is moderate left facet arthropathy. There is mild left foraminal stenosis. At C3-C4, there is mild endplate remodeling. There is moderate to severe left facet arthropathy. There is moderate left foraminal stenosis. At C4-C5, there is a shallow posterior central disc protrusion which slightly effaces the ventral thecal sac. This is superimposed on endplate remodeling. There is mild left facet arthropathy. There is no stenosis. At C5-C6, there is instrumented fusion. There is a bridging left paracentral to foraminal osteophyte and right lateral recess to foraminal osteophyte complex. There is bilateral uncovertebral arthropathy. There is severe bilateral foraminal stenosis. There is mild central canal stenosis with slight deformation of the left ventral aspect of the spinal cord measuring 8.2 mm in nature posterior dimension. At C6-C7, there is instrumented fusion. There are right lateral recess to foraminal and left paracentral to foraminal osteophyte complexes. There is bilateral uncovertebral arthropathy. There is severe right and moderate to severe left foraminal stenosis. There is effacement of the ventral thecal sac and mild central canal stenosis measuring 8.2 mm in anterior posterior dimension. At C7-T1, there is a disc bulge and left foraminal to extra foraminal disc osteophyte complex superimposed on endplate remodeling. There is bilateral uncovertebral therapy. There is severe right and moderate left foraminal stenosis. The fluoroscopic image of the lumbar spine demonstrate a stimulator generator overlying the left buttock and lead extending over the left sacrum. There is degenerative endplate remodeling and facet arthropathy at the majority lumbar levels. This is not formally assessed on this exam. IMPRESSION: 1. Instrumented anterior spinal fusion and interbody fusion at C5-C7. There is no evidence of instrumentation loosening. 2. Multilevel degenerative change involving the cervical spine, described in detail above. This is associated with mild left foraminal stenosis at C2-C3, moderate left foraminal stenosis at C3-C4, severe bilateral foraminal and mild central canal stenosis at C5-C6, severe right and moderate to severe left foraminal and mild central canal stenosis at C6-C7 and severe right and moderate left foraminal stenosis at C7-T1. These findings are similar compared to the prior exam. 3. Small left thyroid cyst or nodule. This is similar compared to the prior exam, favoring benignity. This can be better assessed with a thyroid sonogram if not previously performed. Electronically signed by: Lisa Montero MD (06/29/2020 1:28 PM) [facility]
== END | disposition home or self-care (01) ==
LOC: KCIC 09:42
PROVIDERS: ATTEND Physician Assistant Medical
DX: M50.10 Cervical disc disorder with radiculopathy, unspecified cervical region (principal); M48.02 Spinal stenosis, cervical region; E04.1 Nontoxic single thyroid nodule; Z88.5 Allergy status to narcotic agent; Z88.8 Allergy status to other drugs, medicaments and biological substances; Z79.899 Other long term (current) drug therapy
CPT/HCPCS: 62302; 72126; J3490; Q9967

== ENCOUNTER → 2020-08-08 | Outpatient (CLI) | payer MEDICARE ==
[~2020-08-08] MED LIST changes: +BACITRACIN 50,000 UNIT in IV NORMAL SALINE 1000ML BAG 1,000 ML IRR ONE; +DOCU-153 PO; +HYDR-3164 PO; -IOHEXOL 300 MG/ML 50 ML VIAL. IT ONE; -LIDOCAINE 1% Multi-Dose 20 ML VIAL. ID ONE; +PRAM0.255 PO; +SUCR1TAB PO
[2020-08-08 09:45] LABS: BASO % 1 % (0-3); EOS # 0.1 x10^3/uL (0.0-0.7); EOS % 1 % (0-3); HEMOGLOBIN 13.3 g/dL (12.0-15.5); LYMPH # 1.6 x10^3/uL (1.0-4.8); LYMPH % 28 % (24-48); MEAN CORPUSCULAR HEMOGLOBIN 29 pg (25-35); MEAN CORPUSCULAR HGB CONC 35 g/dL (31-37); MEAN CORPUSCULAR VOLUME 84 fL (79-100); MONO # 0.4 x10^3/uL (0.0-1.1); MONO % 8 % (0-9); NEUT # 3.7 x10^3/uL (1.8-7.7); NEUT % 63 % (31-73); PLATELET COUNT 206 x10^3/uL (140-400); RED BLOOD COUNT 4.55 x10^6/uL (3.50-5.40); RED CELL DISTRIBUTION WIDTH 13.7 % (11.5-14.5); WHITE BLOOD COUNT 5.8 x10^3/uL (4.0-11.0)
[2020-08-08 09:54] LABS: ALBUMIN 3.7 g/dL (3.4-5.0); ALBUMIN/GLOBULIN RATIO 0.9 (1.0-1.7); CREATININE 0.9 mg/dL (0.6-1.0); GFR 62.1; POTASSIUM 3.2 mmol/L (3.5-5.1); TOTAL BILIRUBIN 0.6 mg/dL (0.2-1.0); TOTAL PROTEIN 7.8 g/dL (6.4-8.2)
--- NOTE | 2020-08-08 09:57 | EKG ---
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
[2020-08-09 01:08] LABS: HEMOGLOBIN A1C 7.3 % (4.8-5.6)
--- NOTE | 2020-08-09 14:57 | NUR ---
Dr. Gar's office notified of potassium of 3.2 and A1C 7.2.
== END | disposition home or self-care (01) ==
LOC: SURGPAT 08:55
PROVIDERS: ATTEND Neurological Surgery
DX: Z01.812 Encounter for preprocedural laboratory examination (principal); Z20.828 Contact with and (suspected) exposure to other viral communicable diseases; M54.12 Radiculopathy, cervical region; M48.02 Spinal stenosis, cervical region; M54.2 Cervicalgia
CPT/HCPCS: 36415; 80053; 83036; 85025; 87641; 93005; U0003

== ENCOUNTER 2020-08-10 09:38 | Observation (INO) | payer MEDICARE ==
--- NOTE | 2020-08-09 14:30 | PREOP HP ---
DATE OF SERVICE: 08/10/2020 DATE OF SURGERY: 08/10/2020 HISTORY OF PRESENT ILLNESS: The patient is a pleasant 70-year-old who recently underwent a cervical myelogram after complaining of neck, left shoulder and left arm pain as well as numbness. In 03/2019, she did have similar complaints. She underwent ACDF at C5-C6 and C6-C7 and did well with improvement in her left arm pain for a time. Then, her symptoms gradually returned and became more severe. Most of the pain is in the left shoulder. The entire arm, forearm and fingers of her left hand can be involved at times. She rates her pain as a 7-8/10. Driving increases her pain. She says if she guards her left arm and hold it up, she does get some relief. She has had trigger point injections that did help somewhat. Massage also seems to be giving her temporary relief. PAST MEDICAL HISTORY: Arthritis, artificial joint, cold sores or fever blisters, headaches, migraines, hypertension, shingles, tonsillitis, ulcers, and diabetes. PAST SURGICAL HISTORY: She has had a cholecystectomy in 1969, a hysterectomy in 1996, a carpal tunnel release bilaterally in 1999, knee replacement in 2009, lap band in 2004, gastric bypass in 2016, ACDF at C5-C6 and C6-C7 in 03/2019. FAMILY HISTORY: Cancer and diabetes. SOCIAL HISTORY: She is retired. . Rarely exercises. Denies substance abuse. Denies tobacco use. Quit smoking 10 years ago. Drinks alcohol 1-2 times per year. Drinks tea daily. ALLERGIES: ADHESIVES, LISINOPRIL, LOSARTAN, MACROBID. CURRENT MEDICATIONS: Temazepam, pramipexole, duloxetine, amlodipine, Citlalli, Tylenol. REVIEW OF SYSTEMS: A 12-point review of systems was obtained and is noncontributory except that mentioned above. NEUROSURGERY EXAMINATION: GENERAL APPEARANCE: Alert, pleasant, no acute distress. HEAD: Normocephalic and atraumatic. SKIN: Warm and dry. MUSCULOSKELETAL: Cervical paraspinal muscle bulk is normal, restricted range of motion of the cervical spine, normal range of motion of the upper extremities bilaterally. EXTREMITIES: No clubbing, cyanosis, or edema. NEUROLOGIC: Alert and oriented x 3, normal recent and remote memory, strength 5/5 in bilateral upper and lower extremities, sensory was intact to light touch in the upper and lower extremities, reflexes are present and symmetric in the upper and lower extremities bilaterally, normal gait. IMAGING: I reviewed a cervical myelogram and post-myelogram CT scan. On that study was left-sided neuroforaminal narrowing present at C3-C4, C5-C6 and C6-C7 and to a lesser extent C7-T1. Her previous surgery was done anteriorly at C5-C6 and C6-C7. There does appear to be a solid fusion at those and C6-C7 and to a lesser extent C7-T1. Her previous surgery was done anteriorly at C5-C6 and C6-C7. There does appear to be a solid fusion at those levels. ASSESSMENT/ PLAN: I believe she is having continued problems with cervical foraminal narrowing at C5-C6 and C6-C7. At this point, I would recommend a posterior cervical foraminal decompression at those levels. I did speak with her about this. I explained that this may not help her. She understands. She understands the surgery and the risks. She would like to go ahead. We will make the arrangements. JENNIFER NAVARRO MD DR: ALVERTO/belle JOB#: [id number] / [id number] SONIA
[2020-08-10] VITALS (10 sets, daily range): BP systolic 104–141; BP diastolic 47–69
[~2020-08-10] VITALS: Ht 162.6 cm; Wt 85.0 kg
[~2020-08-10 09:38] MED LIST changes: +AMLO-186 PO; -AMLO5TAB10 PO; -DOCU-153 PO; -HYDR-3164 PO; +ONDANSETRON PF 4 MG/2 ML VIAL. IV PRN; +PROCHLORPERAZINE 10 MG/2 ML VIAL. IV PRN; +VANCOMYCIN 1GM IVPB FOR OMNI 250 ML IV PRN; +fentaNYL PF VIAL 100 MCG/2 ML VIAL IV PRN
[2020-08-10] MEDS ORDERED: GELATIN SPONGE SIZE 100. ONE (09:55)
[2020-08-10] MEDS ORDERED: KETOROLAC 60 MG/2 ML VIAL. ONE (09:55)
[2020-08-10] MEDS ORDERED: THROMBIN TOPICAL 20,000 UNIT SPRAY.SYRN KIT TP ONE (09:56)
[2020-08-10] MEDS ORDERED: BUPIVACAINE-EPI 0.5%-1:200000 MPF 30 ML VIAL. INJ ONE (10:15)
[2020-08-10] MEDS ORDERED: SCOPOLAMINE 1.5MG PATCH. TD SCH (10:39)
[2020-08-10] MEDS: IV RINGERS,LACTATED 1000ML 1,000 ML IV SCH ×2 (11:02→14:35)
[2020-08-10] MEDS ORDERED: REMIFENTANIL 2 MG VIAL. IV ONE (11:04)
[2020-08-10] MEDS ORDERED: fentaNYL PF VIAL 100 MCG/2 ML VIAL ONE ×2 (11:04→15:33)
[2020-08-10] MEDS ORDERED: MIDAZOLAM HCL/PF 2 MG/2 ML VIAL. ONE (11:04)
[2020-08-10] MEDS ORDERED: ROCURONIUM 50 MG/5 ML VIAL. ONE (11:04)
[2020-08-10] MEDS ORDERED: PROPOFOL 10 MG/ML (20ML) VIAL. IV ONE (11:05)
[2020-08-10] MEDS ORDERED: PROPOFOL 50 ML IV ONE (11:05)
[2020-08-10] MEDS ORDERED: DEXAMETHASONE SOD PHOS 20 MG/5 ML VIAL. ONE (11:05)
[2020-08-10] MEDS ORDERED: LIDOCAINE 2% PF 5 ML VIAL. ONE (11:05)
[2020-08-10] MEDS ORDERED: ONDANSETRON PF 4 MG/2 ML VIAL. ONE (11:05)
[2020-08-10] MEDS: INSULIN LISPRO 100 UNIT/ML 3ML VIAL for OP,RR ONLY. SQ PRN ×2 (11:09→14:31)
[2020-08-10] MEDS ORDERED: PHENYLEPHRINE 10 MG/ML VIAL. ONE (13:08)
[2020-08-10] MEDS ORDERED: NEOSTIGMINE METHYLSULFATE 5 MG/5 ML SYRINGE. ONE (14:00)
[2020-08-10] MEDS ORDERED: GLYCOPYRROLATE 1 MG/5 ML VIAL. ONE (14:00)
[2020-08-10] MEDS ORDERED: MAGNESIUM HYDROXIDE 2,400 MG/30 ML ORAL.SUSP. PO PRN (14:15)
[2020-08-10] MEDS ORDERED: CALCIUM CARBONATE 500 MG TAB.CHEW PO PRN (14:15)
[2020-08-10] MEDS ORDERED: NALOXONE 0.4 MG/ML VIAL. IV PRN (14:15)
[2020-08-10] MEDS ORDERED: diphenhydrAMINE HCL 25 MG CAPSULE PO PRN (14:15)
[2020-08-10] MEDS ORDERED: ACETAMINOPHEN 325 MG TABLET. PO PRN (14:15)
[2020-08-10] MEDS ORDERED: MAG HYDROX/ALUMINUM HYD/SIMETH 30 ML ORAL.SUSP PO PRN (14:15)
[2020-08-10] MEDS ORDERED: METHOCARBAMOL 750 MG TABLET PO PRN (14:15)
[2020-08-10] MEDS ORDERED: 0.9 % SODIUM CHLORIDE 10 ML DISP.SYRIN. IV PRN (14:15)
[2020-08-10] MEDS ORDERED: DESFLURANE > 120 MINUTES IH ONE (14:29)
[2020-08-10] MEDS ORDERED: INSULIN LISPRO 100 UNIT/ML 3ML VIAL for OP,RR ONLY. SQ ONE ×2 (14:30)
--- NOTE | 2020-08-10 15:18 | OP ---
DATE OF SURGERY: 08/10/2020 PREOPERATIVE DIAGNOSIS: Foraminal narrowing left C5-C6, C6-C7 with left cervical radiculopathy. POSTOPERATIVE DIAGNOSIS: Foraminal narrowing left C5-C6, C6-C7 with left cervical radiculopathy. OPERATION PERFORMED: Posterior cervical microhemilaminotomy, medial facetotomy, and foraminotomy with decompression of the left C5-6, C6-C7 nerve roots. The operation was done with multimodality monitoring including EMG, SSEP, fluoroscopy also was used as well as microdissection, we also use motor evoked potentials. SURGEON: Armen Oscar M.D. NEWSPAPER EDITOR MANAGING: DANIELE Narayan assisted with the surgery. She assisted with the exposure, the microdecompression as well as the closure. OPERATIVE INDICATIONS: The patient is a pleasant 70-year-old who a year ago underwent an anterior cervical discectomy and fusion at C5-C6, C6-C7, improved markedly except for some residual left arm pain, which did not resolve and worsened. On imaging studies, she continues to have a far lateral recess and far lateral neural foraminal narrowing and she failed conservative measures and I have recommended posterior cervical surgery. I did discuss the surgery with her in detail. She understood and wished to go ahead. DESCRIPTION OF PROCEDURE: Following general endotracheal anesthesia, the patient was positioned prone in Galvin pins on the Jorge table. We were careful to avoid any pressure points. Her posterior cervical region was clipped, prepped and draped in standard fashion. ALMA hose and AV impulse boots were applied for DVT prophylaxis. A microscope was draped. Fluoroscopy was draped and brought into the field. The monitoring was fully established. Ancef 2 grams was given less than 1 hour prior to initiation of surgery. Vancomycin was also given. Incision was made in the midline using fluoroscopic guidance extending from C5 through C7. I dissected the skin and subcutaneous tissue, reflected the paraspinal muscles and placed a [place] microdisk retractor. I directed my attention to C5-C6 and confirmed my position fluoroscopically and I brought in the microscope and high speed air drill, I burred down a generous hemilaminotomy, which I then trimmed with a 1 and 2 mm micro Kerrison's from medial to lateral. I performed a foraminotomy and fully decompressed the region. There was focal area of stenosis, which I alleviated and fully decompressed the region. I then went down and performed the identical operation at C6-C7 on the left. There were no difficulties. The operation was very straight forward. I irrigated copiously. I did put Gelfoam over the hemilaminotomy site. Following this, I explored carefully and assured myself, the roots were quite free out through the foramen. I irrigated and I closed the wound in layers with absorbable suture after obtaining perfect hemostasis. The skin was closed with skin maral. The operation went very well and the patient was awakened uneventfully. I was quite pleased with the surgery. ARMEN NAVARRO MD DR: ALVERTO/belle JOB#: [id number] / [id number] SONIA
[2020-08-10] MEDS: POTASSIUM CL 20MEQ D5-0.45NACL 1,000 ML IV SCH ×2 (15:30→21:05)
[2020-08-10] MEDS: fentaNYL PF VIAL 100 MCG/2 ML VIAL IV PRN ×2 (15:38→15:53)
[2020-08-10] MEDS: metFORMIN 500 MG TABLET PO SCH ×2 (17:00→20:56)
[2020-08-10] MEDS: fentaNYL PF VIAL 100 MCG/2 ML VIAL IVP PRN (18:25)
[2020-08-10] MEDS: SUCRALFATE 1 GM TABLET. PO SCH (19:17)
[2020-08-10] MEDS: DOCUSATE SODIUM 100 MG CAPSULE. PO SCH (20:56)
[2020-08-10] MEDS ORDERED: TEMAZEPAM 15 MG CAPSULE PO SCH (21:00)
[2020-08-10] MEDS ORDERED: PRAMIPEXOLE 0.25 MG TABLET. PO SCH (21:00)
[2020-08-11 03:00] VITALS: BP 110/47
[2020-08-11 07:00] VITALS: BP 123/47
--- NOTE | 2020-08-11 07:39 | DISCH ---
DISCHARGE INSTRUCTIONS Condition on Discharge Condition on Discharge: Stable Activity After Discharge Activity Instructions for Disc: Activity as tolerated, Avoid exertion Other activity instructions: no driving for a week Bathing Instructions: Shower-keep dressing dry Lifting Instructions after Dis: No heavy lifting, No pulling or pushing, Do not lift >10 pounds Weight Bearing Status after Di: As tolerated Diet after Discharge Diet after Discharge: Regular Additional Diet Restrictions: resume home diet Diet Texture: Regular Wound Incision Care Wound/Incision Care: Ice to area for comfort, Change dressing Other wound/incision instructi: may remove dressing in 48 hours if dry Checks after Discharge Checks after discharge: Check blood press - daily Contacting the DRTone after DC Call your doctor for: Concerns you may have Follow-Up Follow up with: Dr. Navarro's nurse in 2 weeks [phone] Treatment/Equipment after DC Adaptive Equipment Issued: None JENNIFER NAVARRO MD Aug 11, 2020 07:39
[2020-08-11] MEDS: SUCRALFATE 1 GM TABLET. PO SCH (08:30)
[2020-08-11] MEDS: DOCUSATE SODIUM 100 MG CAPSULE. PO SCH (08:30)
[2020-08-11] MEDS ORDERED: amLODIPine BESYLATE 10 MG TABLET PO SCH (09:00)
[2020-08-11] MEDS ORDERED: CETIRIZINE HCL 10 MG TABLET. PO SCH (09:00)
[2020-08-11] MEDS ORDERED: DULoxetine HCL 30 MG CAPSULE.DR PO SCH (09:00)
[2020-08-11] MEDS ORDERED: CHOLECALCIFEROL (VITAMIN D3) 5,000 UNIT CAPSULE PO SCH (09:00)
[2020-08-11] MEDS ORDERED: PSEUDOEPHEDRINE ER 120 MG TABLET.ER. PO SCH (09:00)
[2020-08-11] MEDS ORDERED: HYDR-3164 PO (10:06)
[2020-08-11] MEDS ORDERED: DOCU-153 PO (10:06)
[2020-08-11] MEDS ORDERED: METH750T2 PO (10:06)
[2020-08-11] MEDS ORDERED: HYDROcodone/APAP 5/325MG 1 TAB TABLET PO PRN ×2 (10:15)
--- NOTE | 2020-08-11 10:37 | DS ---
DATE OF DISCHARGE: 08/11/2020 DISCHARGE DIAGNOSES: Foraminal narrowing left C5-C6, C6-C7 with left cervical radiculopathy. OPERATION PERFORMED: Posterior cervical microhemilaminotomy, medial facetectomy and foraminotomy with decompression of the left C6, C7 nerve roots. HISTORY OF PRESENT ILLNESS: The patient is a pleasant 70-year-old who a year ago underwent an anterior cervical diskectomy and fusion at C5-C6 and C6-C7 and improved, but had some residual left arm pain, which did not resolve and worsened. On imaging studies, she had far left lateral recess and left neural foraminal narrowing and she failed to improve with conservative measures. I recommended posterior cervical surgery. I spoke with her about the surgery and the risk and the expected postoperative course and she wished to go ahead. HOSPITAL COURSE: She was admitted to the floor postoperatively where she has done well. She has been up ambulating in the room and in the halls. Physical therapy was initiated and instruction was given to her regarding her activities. Her pain is well controlled. She is in good condition to discharge home. DISCHARGE MEDICATIONS: She will resume her medications per the MRAD. DISCHARGE INSTRUCTIONS: She was instructed regarding incision care, activity restrictions and expectations for the next several weeks. She will follow up with us in 2 weeks. She understands to call with any questions or concerns. JENNIFER NAVARRO MD DR: ABBIE/belle JOB#: [id number] / [id number]
[2020-08-11 11:00] VITALS: BP 118/50
[2020-08-11] MEDS: fentaNYL PF VIAL 100 MCG/2 ML VIAL IVP PRN (11:17)
--- NOTE | 2020-08-12 09:07 | PATHOLOGY ---
[facility] Accession Number: [id number] . 01 Material submitted: . vertebral column - CERVICAL DECOMPRESSION . 01 Clinical history: . CERVICAL STENOSIS, RADICULOPATHY, CERVICALGIA, ARTHRODESIS STATUS . 02 Diagnosis: Segments of fibrocartilaginous, adipose, and skeletal muscle tissue and bone, cervical decompression: - Degenerative changes of fibrocartilaginous tissue. (JPM:coat tailor; 08/11/2020) MBR 08/11/2020 1536 Local . 02 Comment: There is no evidence of an acute inflammatory process or malignancy. (JPM:coat tailor; 08/11/2020) . 02 Electronically signed: . Ty Champion MD, Pathologist NPI- [id number] . 01 Gross description: . The specimen is received in formalin, labeled "Stefany Dutta", "cervical decompression". Received are multiple fragments of rubbery and gritty, pale gonzalez-pink tissue, measuring 1.5 x 1.5 x 0.2 cm in aggregate dimensions. The specimen is filtered and entirely submitted in cassette A1.(SNA; 08/10/2020) CHLOE/CHARMAINE 08/11/2020 1535 Local . 02 Pathologist provided ICD-10: M50.90 . 02 CPT . 942973 Specimen Comment: A courtesy copy of this report has been sent to [phone], [phone] Specimen Comment: [id number] Specimen Comment: Report sent to / DR LYON Performed at: 01 [facility] [address], [place], [place] [id number] MD Urbano Brantley MD Phone: [phone] Performed at: 02 [facility] [address] [place], [place] [id number] MD Ty Champion MD Phone: [phone]
== END 2020-08-11 11:20 | disposition home or self-care (01) ==
LOC: SURG 09:38 → 4 NORTH 14:30
PROVIDERS: ADMIT Neurological Surgery; ATTEND Neurological Surgery
DX: M48.02 Spinal stenosis, cervical region (principal); M19.90 Unspecified osteoarthritis, unspecified site; M54.12 Radiculopathy, cervical region; I10 Essential (primary) hypertension; E11.9 Type 2 diabetes mellitus without complications; G43.909 Migraine, unspecified, not intractable, without status migrainosus; Z90.710 Acquired absence of both cervix and uterus; Z90.49 Acquired absence of other specified parts of digestive tract; Z87.891 Personal history of nicotine dependence; Z98.84 Bariatric surgery status; Z98.1 Arthrodesis status; Z96.659 Presence of unspecified artificial knee joint
CPT/HCPCS: 63045; 63048; 76000; 82962; 88304; 96374; 96376; A7015; G0378; G0379; J0690; J1100; J1815; J1885; J2250; J2370; J2405; J2704; J2710; J3010; J3370; J3490; J7030; J7120

== ENCOUNTER 2021-04-09 21:49 | Emergency (ER) | payer MEDICARE ==
[~2021-04-09] VITALS: Ht 162.6 cm; Wt 76.3 kg
[~2021-04-09 21:49] MED LIST changes: -BACITRACIN 50,000 UNIT in IV NORMAL SALINE 1000ML BAG 1,000 ML IRR ONE; +DOCU-153 PO; +HYDR-3164 PO; +METH-562 PO; -METH750T2 PO; -OMEP40CA45 PO; +OMEP40CA7 PO; -ONDANSETRON PF 4 MG/2 ML VIAL. IV PRN; -PROCHLORPERAZINE 10 MG/2 ML VIAL. IV PRN; -VANCOMYCIN 1GM IVPB FOR OMNI 250 ML IV PRN; -fentaNYL PF VIAL 100 MCG/2 ML VIAL IV PRN
[2021-04-09] MEDS ORDERED: CONTRAST GIVEN. MC PRN (23:15)
[2021-04-09] MEDS ORDERED: IOHEXOL 240 MG/ML 50ML VIAL. PO ONE (23:30)
[2021-04-09] MEDS ORDERED: IV NORMAL SALINE 1000ML BAG 1,000 ML IV ONE (23:30)
[2021-04-09 23:39] LABS: BILIRUBIN,URINE NEGATIVE (NEG); CLARITY,URINE CLEAR; COLOR,URINE YELLOW; NITRITE,URINE NEGATIVE (NEG); PH,URINE 6.5 (<5.0-8.0); PROTEIN,URINE NEGATIVE (NEG-TRACE)
[2021-04-09 23:53] LABS: BACTERIA,URINE 0 /HPF (0-FEW); RBC,URINE 0 /HPF (0-2); WBC,URINE 0 /HPF (0-4)
[2021-04-09 23:55] LABS: BASO % 0 % (0-3); EOS % 0 % (0-3); HEMATOCRIT 33.9 % (36.0-47.0); HEMOGLOBIN 11.3 g/dL (12.0-15.5); LYMPH # 1.7 x10^3/uL (1.0-4.8); LYMPH % 21 % (24-48); MEAN CORPUSCULAR HEMOGLOBIN 29 pg (25-35); MEAN CORPUSCULAR HGB CONC 33 g/dL (31-37); MEAN CORPUSCULAR VOLUME 87 fL (79-100); MONO # 0.6 x10^3/uL (0.0-1.1); MONO % 7 % (0-9); NEUT # 5.6 x10^3/uL (1.8-7.7); NEUT % 71 % (31-73); PLATELET COUNT 192 x10^3/uL (140-400); RED BLOOD COUNT 3.87 x10^6/uL (3.50-5.40); RED CELL DISTRIBUTION WIDTH 14.3 % (11.5-14.5); WHITE BLOOD COUNT 7.9 x10^3/uL (4.0-11.0)
[2021-04-10] MEDS ORDERED: fentaNYL PF VIAL 100 MCG/2 ML VIAL IV ONE (00:30)
[2021-04-10 00:33] LABS: ALBUMIN 3.6 g/dL (3.4-5.0); ALBUMIN/GLOBULIN RATIO 1.1 (1.0-1.7); CREATININE 0.9 mg/dL (0.6-1.0); GFR 62.1; MAGNESIUM 1.6 mg/dL (1.8-2.4); TOTAL BILIRUBIN 0.6 mg/dL (0.2-1.0); TOTAL PROTEIN 6.9 g/dL (6.4-8.2)
[2021-04-10 00:36] LABS: POTASSIUM 2.9 mmol/L (3.5-5.1)
[2021-04-10] MEDS ORDERED: MAGNESIUM SULFATE 2GM 50 ML IV ONE (00:45)
[2021-04-10] MEDS ORDERED: CONTRAST GIVEN. MC PRN (01:00)
--- NOTE | 2021-04-10 01:25 | RAD ---
CT ABDOMEN+PELVIS W History: Reason: Abdominal pain, constipation, Technique: After the administration of intravenous contrast, CT imaging was performed of the abdomen and pelvis. Multiplanar images are reviewed. Exposure: One or more of the following individualized dose reduction techniques were utilized for thi s examination: 1. Automated exposure control 2. Adjustment of the mA and/or kV according to patient size 3. Use of iterative reconstruction technique. Comparison: None Findings: Lower chest: Distal esophageal wall thickening. Linear left lower lobe atelectasis. Abdomen and pelvis: Tiny right hepatic lobe hypodensity, too small to further characterize. The splee n, adrenal glands, and pancreas are unremarkable. Prior cholecystectomy. Biliary ducts within normal limits for post cholecystectomy state. Patent portal veins. Right renal small cyst. No hydronephrosis . No renal calculi. Decompressed urinary bladder with wall thickening and Pickens catheter in place. Large colonic stool burden. Appendix not well seen. Phlebolith is noted within the right gonadal vein . Prior hysterectomy. No evidence of bowel obstruction. Oral contrast opacifies to the level of the d istal small bowel and cecum. Postoperative changes gastric bypass. Mild fluid within the gastric remn ant. No contrast is identified within the gastric remnant. No pathologic lymphadenopathy. No ascites. Anterior abdominal wall subcutaneous infiltration with calcifications, may relate to scarring. Ather omatous plaque throughout the nonaneurysmal abdominal aorta and branch vessels. Bones: Sacral stimulator noted. Multilevel lumbar spondylosis. Impression: 1. Distal esophageal wall thickening, may represent esophagitis. Recommend follow-up. 2. Large colonic stool burden. 3. Decompressed thick-walled urinary bladder. Correlate for cystitis. Electronically signed by: Charanjit Pichardo DO (04/10/2021 1:23 AM) [facility]
[2021-04-10] MEDS ORDERED: IOHEXOL 300 MG/ML 100ML VIAL. IV ONE (01:30)
[2021-04-10] MEDS ORDERED: POTASSIUM CHLORIDE 10 MEQ TABLET.ER. PO ONE (02:00)
--- NOTE | 2021-04-10 02:35 | PHYS DOC ---
Past Medical History Past Medical History: Depression, Diabetes-Type II, Hypertension, Other Additional Past Medical Histor: GASTROPARESIS, SYNOPTIC METEOROLOGIST APNEA, KIDNEY INFECTION Past Surgical History: Hysterectomy, Knee Replacement, Tonsillectomy Additional Past Surgical Histo: DEVIATED SEPTUM, BACK SIMUL, BILA KNEE REP, LAP BAND W REMOVAL, CARP TU-KENNEDY Smoking Status: Former Smoker Alcohol Use: None Drug Use: None General Adult EDM: Chief Complaint: CONTISPATION HPI: HPI: Patient is a 70 year old [f__sex] who presents with [] Review of Systems: Review of Systems: Constitutional: Denies fever or chills. [] Eyes: Denies change in visual acuity. [] HENT: Denies nasal congestion or sore throat. [] Respiratory: Denies cough or shortness of breath. [] Cardiovascular: Denies chest pain or edema. [] GI: Denies abdominal pain, nausea, vomiting, bloody stools or diarrhea. [] : Denies dysuria. [] Musculoskeletal: Denies back pain or joint pain. [] Integument: Denies rash. [] Neurologic: Denies headache, focal weakness or sensory changes. [] Endocrine: Denies polyuria or polydipsia. [] Lymphatic: Denies swollen glands. [] Psychiatric: Denies depression or anxiety. [] Heart Score: Risk Factors: Risk Factors: DM, Current or recent (<one month) smoker, HTN, HLP, family history of CAD, obesity. Risk Scores: Score 0 - 3: 2.5% MACE over next 6 weeks - Discharge Home Score 4 - 6: 20.3% MACE over next 6 weeks - Admit for Clinical Observation Score 7 - 10: 72.7% MACE over next 6 weeks - Early Invasive Strategies Current Medications: Current Medications Medications (Trade) Dose Ordered Sig/Pee Start Time Stop Time Status Last Admin Dose Admin Fentanyl Citrate (Fentanyl 2ml Vial) 50 mcg 1X ONCE 04/10/21 00:30 04/10/21 00:31 DC 04/09/21 23:58 50 MCG Info (CONTRAST GIVEN -- Rx MONITORING) 1 each PRN DAILY PRN 04/10/21 01:00 04/12/21 00:59 Iohexol (Omnipaque 240 Mg/ml) 50 ml 1X ONCE 04/09/21 23:30 04/09/21 23:31 DC 04/09/21 23:40 50 ML Iohexol (Omnipaque 300 Mg/ml) 75 ml 1X ONCE 04/10/21 01:30 04/10/21 01:31 DC 04/10/21 01:07 75 ML Magnesium Sulfate 50 ml @ 25 mls/hr 1X ONCE 04/10/21 00:45 04/10/21 02:44 04/10/21 00:56 25 MLS/HR Potassium Chloride (Klor-Con) 40 meq 1X ONCE 04/10/21 02:00 04/10/21 02:01 DC 04/10/21 02:18 40 MEQ Sodium Chloride 1,000 ml @ 1,000 mls/hr 1X ONCE 04/09/21 23:30 04/10/21 00:29 DC 04/09/21 23:18 1,000 MLS/HR Allergies: Allergies: Allergies Coded Allergies Type Severity Reaction Last Updated Verified adhesive Allergy Intermediate 04/09/21 Yes codeine Allergy Intermediate nausea 04/09/21 Yes lisinopril Allergy Intermediate COUGH 04/09/21 Yes losartan Allergy Intermediate 04/09/21 Yes nitrofurantoin Allergy Intermediate 04/09/21 Yes sulfamethoxazole Allergy Mild 04/09/21 Yes trimethoprim Allergy Mild 08/08/20 Yes I S O L A T I O N *CONTACT* Allergy Unknown MRSA POSITIVE NARES 08/09/20 Yes Physical Exam: PE: Constitutional: Well developed, well nourished, no acute distress, non-toxic appearance. [] HENT: Normocephalic, atraumatic, bilateral external ears normal, oropharynx moist, no oral exudates, nose normal. [] Eyes: PERRLA, EOMI, conjunctiva normal, no discharge. [] Neck: Normal range of motion, no tenderness, supple, no stridor. [] Cardiovascular:Heart rate regular rhythm, no murmur [] Lungs & Thorax: Bilateral breath sounds clear to auscultation [] Abdomen: Bowel sounds normal, soft, no tenderness, no masses, no pulsatile masses. [] Skin: Warm, dry, no erythema, no rash. [] Back: No tenderness, no CVA tenderness. [] Extremities: No tenderness, no cyanosis, no clubbing, ROM intact, no edema. [] Neurologic: Alert and oriented X 3, normal motor function, normal sensory function, no focal deficits noted. [] Psychologic: Affect normal, judgement normal, mood normal. [] Current Patient Data: Labs: Laboratory Tests Test 04/09/21 23:09 04/09/21 23:25 04/09/21 23:45 04/10/21 00:10 Lactic Acid Level 1.2 mmol/L (0.4-2.0) Urine Collection Type Unknown Urine Color Yellow Urine Clarity Clear Urine pH 6.5 (<5.0-8.0) Urine Specific [place] 1.025 (1.000-1.030) Urine Protein Negative mg/dL (NEG-TRACE) Urine Glucose (UA) Negative mg/dL (NEG) Urine Ketones (Stick) 15 mg/dL (NEG) Urine Blood Negative (NEG) Urine Nitrite Negative (NEG) Urine Bilirubin Negative (NEG) Urine Urobilinogen Dipstick 1.0 mg/dL (0.2 mg/dL) Urine Leukocyte Esterase Negative (NEG) Urine RBC 0 /HPF (0-2) Urine WBC 0 /HPF (0-4) Urine Squamous Epithelial Cells Occ /LPF Urine Bacteria 0 /HPF (0-FEW) Urine Mucus Slight /LPF White Blood Count 7.9 x10^3/uL (4.0-11.0) Red Blood Count 3.87 x10^6/uL (3.50-5.40) Hemoglobin 11.3 g/dL (12.0-15.5) L Hematocrit 33.9 % (36.0-47.0) L Mean Corpuscular Volume 87 fL (79-100) Mean Corpuscular Hemoglobin 29 pg (25-35) Mean Corpuscular Hemoglobin Concent 33 g/dL (31-37) Red Cell Distribution Width 14.3 % (11.5-14.5) Platelet Count 192 x10^3/uL (140-400) Neutrophils (%) (Auto) 71 % (31-73) Lymphocytes (%) (Auto) 21 % (24-48) L Monocytes (%) (Auto) 7 % (0-9) Eosinophils (%) (Auto) 0 % (0-3) Basophils (%) (Auto) 0 % (0-3) Neutrophils # (Auto) 5.6 x10^3/uL (1.8-7.7) Lymphocytes # (Auto) 1.7 x10^3/uL (1.0-4.8) Monocytes # (Auto) 0.6 x10^3/uL (0.0-1.1) Eosinophils # (Auto) 0.0 x10^3/uL (0.0-0.7) Basophils # (Auto) 0.0 x10^3/uL (0.0-0.2) Sodium Level 135 mmol/L (136-145) L Potassium Level 2.9 mmol/L (3.5-5.1) *L Chloride Level 97 mmol/L (98-107) L Carbon Dioxide Level 30 mmol/L (21-32) Anion Gap 8 (6-14) Blood Urea Nitrogen 22 mg/dL (7-20) H Creatinine 0.9 mg/dL (0.6-1.0) Estimated GFR (Cockcroft-Gault) 62.1 BUN/Creatinine Ratio 24 (6-20) H Glucose Level 168 mg/dL (70-99) H Calcium Level 9.0 mg/dL (8.5-10.1) Magnesium Level 1.6 mg/dL (1.8-2.4) L Total Bilirubin 0.6 mg/dL (0.2-1.0) Aspartate Amino Transferase (AST) 15 U/L (15-37) Alanine Aminotransferase (ALT) 17 U/L (14-59) Alkaline Phosphatase 80 U/L (46-116) Total Protein 6.9 g/dL (6.4-8.2) Albumin 3.6 g/dL (3.4-5.0) Albumin/Globulin Ratio 1.1 (1.0-1.7) Lipase 46 U/L (73-393) L Laboratory Tests 04/09/21 23:45 Laboratory Tests 04/10/21 00:10 Vital Signs: Vital Signs Date Time Temp Pulse Resp B/P (MAP) Pulse Ox O2 Delivery O2 Flow Rate FiO2 04/10/21 01:37 76 20 127/60 (82) 93 Room Air 04/09/21 22:30 98.2 98.2 EKG: EKG: [] Radiology/Procedures: Radiology/Procedures: [] Course & Med Decision Making: Course & Med Decision Making Pertinent Labs and Imaging studies reviewed. (See chart for details) [] Dragon Disclaimer: Dragon Disclaimer: This electronic medical record was generated, in whole or in part, using a voice recognition dictation system. Departure Departure Impression: Primary Impression: Fecal impaction in rectum Additional Impressions: Constipation Qualified Codes: K59.00 - Constipation, unspecified Urinary retention Hypokalemia Hypomagnesemia Disposition: HOME / SELF CARE / HOMELESS Condition: STABLE Referrals: JARRELL GARCIA MD (PCP) Patient Instructions: Constipation, Adult, [id number], Fecal Impaction, [place] Catheter Care, Adult, Hypokalemia, Hypomagnesemia, Potassium Content of Foods, Urinary Retention, Acute, Female, [id number] Scripts Peg 3350/Na Sulf,Bicarb,Cl/Kcl (GOLYTELY SOLUTION) 4,000 Ml Soln.recon 4000 ML PO 1X PRN for CONSTIPATION, #1 BOT Drink 8 oz every 15min until significant output. Prov: NELA MASCORRO DO 04/10/21 Sennosides/Docusate Sodium (Colace 2-in-1 Tablet) 1 Each Tablet 1 TAB PO QHS for 30 Days, #30 TAB 0 Refills Prov: NELA MASCORRO DO 04/10/21 NELA MASCORRO DO Apr 10, 2021 02:35
[2021-04-10 02:37] VITALS: BP 134/65
[2021-04-10] MEDS ORDERED: SENN-121 PO (02:47)
[2021-04-10] MEDS ORDERED: PEG4000S8 PO (02:47)
== END 2021-04-10 03:07 | disposition home or self-care (01) ==
LOC: ER 21:49
DX: K56.41 Fecal impaction (principal); R33.9 Retention of urine, unspecified; E87.6 Hypokalemia; E83.42 Hypomagnesemia; E11.9 Type 2 diabetes mellitus without complications; I10 Essential (primary) hypertension; Z87.891 Personal history of nicotine dependence; Z90.710 Acquired absence of both cervix and uterus; Z88.5 Allergy status to narcotic agent; Z88.6 Allergy status to analgesic agent; Z88.1 Allergy status to other antibiotic agents; Z88.2 Allergy status to sulfonamides; Z91.041 Radiographic dye allergy status
CPT/HCPCS: 36415; 74177; 80053; 81001; 83605; 83690; 83735; 85025; 96361; 96365; 96366; 96375; 99285; J3010; J3475; J7030; Q9966; Q9967

== ENCOUNTER 2021-08-24 09:05 | Inpatient (IN) | payer MEDICARE ==
[~2021-08-24] VITALS: Ht 162.6 cm; Wt 83.4 kg
[~2021-08-24 09:05] MED LIST changes: +DOCU-148 PO; -DOCU-153 PO; +PEG4000S8 PO; +SENN-121 PO
[2021-08-24] MEDS ORDERED: fentaNYL PF VIAL 100 MCG/2 ML VIAL IVP ONE ×2 (09:30→12:45)
[2021-08-24] MEDS ORDERED: ASPIRIN CHEWABLE 81 MG TABLET. PO ONE (09:30)
--- NOTE | 2021-08-24 09:43 | RAD ---
XR CHEST 1V History: Reason: chest pain, back pain / Spl. Instructions: / History: Comparison: March 05, 2017 Findings: No consolidation or pleural effusion. Normal heart size. No pneumothorax. Postop changes cervical spi ne. Impression: 1. No acute cardiopulmonary process. Electronically signed by: Charanjit Pichardo DO (08/24/2021 9:41 AM) [id number]
--- NOTE | 2021-08-24 10:02 | PHYS DOC ---
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 No specific exacerbation with exertion. She denies dyspnea. She denies diaphoresis. She reports occasional dizziness. She reports occasional nausea, without vomiting. She reports mid epigastric abdominal discomfort. She denies numbness, tingling, motor weakness, syncope, fall, head injury, headache. She denies any changes in symptoms today. She was waiting to be seen because she had a scheduled primary care physician appointment this morning, and she was seen in the office, had an EKG and was sent here for further evaluation. Does not normally experience these types of symptoms. She denies any mid or lower abdominal pain, she denies any low back pain. She denies lower extremity pain or weakness. No sudden onset of pain. No pleuritic pain. She does report she has a mild, dry cough. No hemoptysis. She reports that she had a negative Covid swab 2 days ago, through [facility]. She is vaccinated against Covid. Review of Systems: Review of Systems: Constitutional: Denies fever or chills. [] Eyes: Denies change in visual acuity. [] HENT: Denies nasal congestion or sore throat. [] Respiratory: Reports a rare, dry cough. Denies dyspnea. Denies hemoptysis. Cardiovascular: She reports chest pain. Denies peripheral edema. GI: Reports abdominal/epigastric discomfort. Reports mild nausea without vomiting. Denies bowel habit changes. : Denies urinary symptoms. Musculoskeletal: Reports midthoracic back pain, radiating from her chest. Denies joint pain or swelling. Denies calf pain. Integument: Denies rash. [] Neurologic: Denies headache, focal weakness or sensory changes. Denies syncope. Reports mild dizziness, denies vertigo. Psychiatric: Denies depression or anxiety. [] Heart Score: C/O Chest Pain: Yes HEART Score for Chest Pain: HEART Score for Chest Pain Response (Comments) Value History Moderately Suspicious 1 ECG Nonspecific Repolarizatio 1 Age > 65 2 Risk Factors >3 Risk Factors or Hx CAD 2 Troponin < Normal Limit 0 Total 6 Risk Factors: Risk Factors: DM, Current or recent (<one month) smoker, HTN, HLP, family history of CAD, obesity. Risk Scores: Score 0 - 3: 2.5% MACE over next 6 weeks - Discharge Home Score 4 - 6: 20.3% MACE over next 6 weeks - Admit for Clinical Observation Score 7 - 10: 72.7% MACE over next 6 weeks - Early Invasive Strategies Current Medications: Current Medications Medications (Trade) Dose Ordered Sig/Pee Start Time Stop Time Status Last Admin Dose Admin Aspirin (Aspirin Chewable) 324 mg 1X ONCE 08/24/21 09:30 08/24/21 09:32 DC Fentanyl Citrate (Fentanyl 2ml Vial) 50 mcg 1X ONCE 08/24/21 09:30 08/24/21 09:32 DC Allergies: Allergies: Allergies Coded Allergies Type Severity Reaction Last Updated Verified adhesive Allergy Intermediate 04/09/21 Yes codeine Allergy Intermediate nausea 04/09/21 Yes lisinopril Allergy Intermediate COUGH 04/09/21 Yes losartan Allergy Intermediate 04/09/21 Yes nitrofurantoin Allergy Intermediate 04/09/21 Yes sulfamethoxazole Allergy Mild 04/09/21 Yes trimethoprim Allergy Mild 08/08/20 Yes I S O L A T I O N *CONTACT* Allergy Unknown MRSA POSITIVE NARES 08/09/20 Yes Physical Exam: PE: Constitutional: Well developed, well nourished, no acute distress, non-toxic appearance. [] HENT: Normocephalic, atraumatic, mucous membranes are moist Eyes: Sclera are clear and anicteric, no discharge. [] Neck: Normal range of motion, no tenderness, supple, no stridor. [] Cardiovascular:Heart rate regular rhythm, +2, symmetric radial and posterior tibial pulses bilaterally Lungs & Thorax: Bilateral breath sounds clear to auscultation, no rales, rhonchi or wheezes. Equal chest rise. No tachypnea, no stridor, no distress. Abdomen: Abdomen is obese, soft, nondistended, very minimal epigastric tenderness, without guarding or rebound tenderness. No other focal areas of abdominal tenderness. Normal bowel sounds noted. No CVA tenderness. No flank or abdominal ecchymosis noted. Multiple abdominal scars noted. Skin: Warm, dry, no erythema, no rash. [] Back: No tenderness, no CVA tenderness. [] Extremities: No tenderness, no cyanosis, no clubbing, ROM intact, no edema. [] Neurologic: Alert and oriented X 3, normal motor function, normal sensory function, no focal deficits noted. [] Psychologic: She is mildly anxious, but she is cooperative and pleasant. Current Patient Data: Vital Signs: Vital Signs Date Time Temp Pulse Resp B/P (MAP) Pulse Ox O2 Delivery O2 Flow Rate FiO2 08/24/21 09:27 97.7 83 18 140/66 (90) 100 Room Air 97.7 EKG: EKG: EKG is interpreted at 09 17 Rhythm is sinus Rate is 69 bpm There is marked baseline artifact [place] appears to be left No STEMI EKG interpreted at 1208 Rhythm is sinus Rate is 67 bpm [place] is left No STEMI Radiology/Procedures: Radiology/Procedures: IMAGING REPORT Signed PATIENT: SHAHEED MAZARIEGOS ACCOUNT: [id number] : 1950 LOCATION: ER AGE: 71 SEX: F EXAM STATUS: PRE ER ORD. PHYSICIAN: LEIGH BRANCH DO REASON: chest pain, back pain PROCEDURE: PORTABLE CHEST 1V XR CHEST 1V History: Reason: chest pain, back pain / Spl. Instructions: / History: Comparison: March 05, 2017 Findings: No consolidation or pleural effusion. Normal heart size. No pneumothorax. Postop changes cervical spine. Impression: 1. No acute cardiopulmonary process. Electronically signed by: Charanjit Pichardo DO (08/24/2021 9:41 AM) [id number] DICTATED and SIGNED BY: CHARANJIT PICHARDO DO DATE: 08/24/21 [id number] IMAGING REPORT Signed PATIENT: SHAHEED MAZARIEGOS ACCOUNT: [id number] : 1950 LOCATION: ER AGE: 71 SEX: F EXAM STATUS: REG ER ORD. PHYSICIAN: LEIGH BRANCH DO REASON: chest pain, back pain PROCEDURE: CT ANGIOGRAPHY CHEST CTA CHEST History: Chest pain. Back pain. Technique: CT of the chest was performed with intravenous contrast. PE protocol. Maximum intensity projection coronal and sagittal reconstructions were performed. Exposure: One or more of the following individualized dose reduction techniques were utilized for this examination: 1. Automated exposure control 2. Adjustment of the mA and/or kV according to patient size 3. Use of iterative reconstruction technique. Comparison: None Findings: Chest: No pulmonary embolism. No aortic aneurysm or dissection. Mild atheromatous plaque. No pathologic lymphadenopathy. Mild diffuse esophageal wall thickening. Left thyroid nodule measures 1.2 cm. Diffuse mosaic attenuation. Mild scattered linear atelectasis. No pleural effusion. No pneumothorax. No consolidation. 2 mm left upper lobe pulmonary nodule (series 3 image 52). Calcified right lower lobe pulmonary nodule and calcified mediastinal lymph nodes likely prior granulomatous disease. 2 mm right upper lobe pulmonary nodule (image 58). Upper abdomen: Postoperative changes gastric bypass. Small calcified splenic artery pseudoaneurysm measures 0.9 x 1.1 cm. Bones: No pathologic osseous lesions. Impression: 1. No pulmonary embolism. 2. Diffuse esophageal wall thickening. Recommend correlation for esophagitis. 3. Mild mosaic attenuation, can be seen with small airways disease. 4. Small pulmonary nodules. Recommend one-year follow-up chest CT without contrast if high risk. 5. Small calcified splenic artery pseudoaneurysm. 6. Small left thyroid nodule. Electronically signed by: Charanjit Pichardo DO (08/24/2021 11:23 AM) [id number] DICTATED and SIGNED BY: CHARANJIT PICHARDO DO DATE: 08/24/21 [id number] 0 Course & Med Decision Making: Course & Med Decision Making Pertinent Labs and Imaging studies reviewed. (See chart for details) The findings, differential diagnosis and plan of care were explained to the patient. P.o. aspirin is given. She is given a dose of IV fentanyl, and she is resting comfortably. I have recommended admission. She confirms that she is taking 40 mg twice daily of omeprazole. She does appear to have esophagitis type abnormality seen on CT. No evidence of PE or aortic dissection. Troponin is negative. EKG is nonischemic. However, she has multiple risk factors for underlying coronary disease or cardiac etiology, so she agrees to my recommendation for admission. Will consult GI and cardiology. She is accepted for admission by Dr. Garcia. Jen Disclaimer: Jen Disclaimer: This electronic medical record was generated, in whole or in part, using a voice recognition dictation system. Departure Departure Impression: Primary Impression: Chest pain Additional Impression: Esophageal abnormality Disposition: ADMITTED INPATIENT Admitting Physician: Jarrell Garcia Condition: STABLE Referrals: JARRELL GARCIA MD (PCP) LEIGH BRANCH DO Aug 24, 2021 10:02
[2021-08-24 10:18] LABS: BASO % 1 % (0-3); EOS # 0.1 x10^3/uL (0.0-0.7); EOS % 1 % (0-3); HEMATOCRIT 33.7 % (36.0-47.0); HEMOGLOBIN 11.5 g/dL (12.0-15.5); LYMPH # 1.4 x10^3/uL (1.0-4.8); LYMPH % 25 % (24-48); MEAN CORPUSCULAR HEMOGLOBIN 29 pg (25-35); MEAN CORPUSCULAR HGB CONC 34 g/dL (31-37); MEAN CORPUSCULAR VOLUME 84 fL (79-100); MONO # 0.3 x10^3/uL (0.0-1.1); MONO % 6 % (0-9); NEUT # 3.8 x10^3/uL (1.8-7.7); NEUT % 68 % (31-73); PLATELET COUNT 178 x10^3/uL (140-400); RED BLOOD COUNT 4.02 x10^6/uL (3.50-5.40); RED CELL DISTRIBUTION WIDTH 14.1 % (11.5-14.5); WHITE BLOOD COUNT 5.6 x10^3/uL (4.0-11.0)
[2021-08-24 10:19] LABS: CALCIUM 8.9 mg/dL (8.5-10.1); CREATININE 0.9 mg/dL (0.6-1.0); GFR 61.9; POTASSIUM 3.4 mmol/L (3.5-5.1)
[2021-08-24 10:26] LABS: ALBUMIN 3.5 g/dL (3.4-5.0); ALBUMIN/GLOBULIN RATIO 0.9 (1.0-1.7); MAGNESIUM 1.7 mg/dL (1.8-2.4); TOTAL BILIRUBIN 0.8 mg/dL (0.2-1.0); TOTAL PROTEIN 7.3 g/dL (6.4-8.2)
[2021-08-24] MEDS ORDERED: CONTRAST GIVEN. MC PRN (11:00)
[2021-08-24] MEDS ORDERED: IOHEXOL 350 MG/ML 100 ML VIAL. IV ONE (11:00)
--- NOTE | 2021-08-24 11:25 | RAD ---
CTA CHEST History: Chest pain. Back pain. Technique: CT of the chest was performed with intravenous contrast. PE protocol. Maximum intensity pr ojection coronal and sagittal reconstructions were performed. Exposure: One or more of the following individualized dose reduction techniques were utilized for thi s examination: 1. Automated exposure control 2. Adjustment of the mA and/or kV according to patient size 3. Use of iterative reconstruction technique. Comparison: None Findings: Chest: No pulmonary embolism. No aortic aneurysm or dissection. Mild atheromatous plaque. No patholog ic lymphadenopathy. Mild diffuse esophageal wall thickening. Left thyroid nodule measures 1.2 cm. Diffuse mosaic attenuation. Mild scattered linear atelectasis. No pleural effusion. No pneumothorax. No consolidation. 2 mm left upper lobe pulmonary nodule (series 3 image 52). Calcified right lower lobe pulmonary nodul e and calcified mediastinal lymph nodes likely prior granulomatous disease. 2 mm right upper lobe pul monary nodule (image 58). Upper abdomen: Postoperative changes gastric bypass. Small calcified splenic artery pseudoaneurysm me asures 0.9 x 1.1 cm. Bones: No pathologic osseous lesions. Impression: 1. No pulmonary embolism. 2. Diffuse esophageal wall thickening. Recommend correlation for esophagitis. 3. Mild mosaic attenuation, can be seen with small airways disease. 4. Small pulmonary nodules. Recommend one-year follow-up chest CT without contrast if high risk. 5. Small calcified splenic artery pseudoaneurysm. 6. Small left thyroid nodule. Electronically signed by: Charanjit Pichardo DO (08/24/2021 11:23 AM) [id number]
[2021-08-24] MEDS ORDERED: ONDANSETRON PF 4 MG/2 ML VIAL. IVP PRN (12:00)
[2021-08-24] MEDS ORDERED: fentaNYL PF VIAL 100 MCG/2 ML VIAL IVP PRN (12:00)
[2021-08-24] MEDS ORDERED: IV NORMAL SALINE 1000ML BAG 1,000 ML IV ONE (12:00)
--- NOTE | 2021-08-24 13:01 | PDOC2 ---
KATHY DUGGAN RADIOLOGY SPECIALIST 08/24/21 1301: CARDIAC CONSULT DATE OF CONSULT Date of Consult DATE: 08/24/21 TIME: 12:55 REASON FOR CONSULT Reason for Consult: Chest pain REFERRING PHYSICIAN Referring Physician: Dr. eFrrell SOURCE Source: Chart review, Patient HISTORY OF PRESENT ILLNESS HISTORY OF PRESENT ILLNESS This is a 71 yo female who presented secondary to chest pain. Patient reports having band around her chest since Saturday. Will occasionally radiated to her left chest and shoulder. No associated dizziness, diaphoresis, palpitation, or nausea/vomiting. Does report having acid reflex bad this week and had to sleep with head up on two pillows, which seemed to improved symptoms. Follow with [facility]. Has stress test and echo earlier this year. PAST MEDICAL HISTORY Cardiovascular: HTN, Hyperlipidemia Pulmonary: Other (HUE) GI: GERD Musculoskeletal: Osteoarthritis PAST SURGICAL HISTORY Past Surgical History: Appendectomy, Cholecystectomy, Hysterectomy, Other (gastric bypass, back surgery) FAMILY HISTORY Family History: Hypertension SOCIAL HISTORY Smoke: No ALCOHOL: none Drugs: None Lives: with Family CURRENT MEDICATIONS CURRENT MEDICATIONS Current Medications Medications (Trade) Dose Ordered Sig/Pee Route PRN Reason Start Time Stop Time Status Last Admin Dose Admin Aspirin (Aspirin Chewable) 324 mg 1X ONCE PO 08/24/21 09:30 08/24/21 09:32 DC 08/24/21 10:00 Fentanyl Citrate (Fentanyl 2ml Vial) 50 mcg 1X ONCE IVP 08/24/21 09:30 08/24/21 09:32 DC 08/24/21 10:01 Iohexol (Omnipaque 350 Mg/ml) 90 ml 1X ONCE IV 08/24/21 11:00 08/24/21 11:01 DC 08/24/21 10:53 ALLERGIES ALLERGIES: Coded Allergies: adhesive (Verified Allergy, Intermediate, 04/09/21) codeine (Verified Allergy, Intermediate, nausea, 04/09/21) lisinopril (Verified Allergy, Intermediate, COUGH, 04/09/21) losartan (Verified Allergy, Intermediate, 04/09/21) nitrofurantoin (Verified Allergy, Intermediate, 04/09/21) sulfamethoxazole (Verified Allergy, Mild, 04/09/21) trimethoprim (Verified Allergy, Mild, 08/08/20) I S O L A T I O N *CONTACT* (Verified Allergy, Unknown, MRSA POSITIVE NARES, 08/09/20) ROS Review of System 14 point ROS conducted with pertinent positives noted above in HPI PHYSICAL EXAM General: Alert, Oriented X3, Cooperative, No acute distress HEENT: Atraumatic Lungs: Clear to auscultation Heart: Regular rate Abdomen: Soft, No tenderness Extremities: No edema, Normal pulses Skin: No breakdown, No significant lesion Neuro: Normal speech, Sensation intact Psych/Mental Status: Mental status NL, Mood NL MUSCULOSKELETAL: Osteoarthritic changes both hands VITALS/I&O VITALS/I&O: Vital Signs Date Time Temp Pulse Resp B/P (MAP) Pulse Ox O2 Delivery O2 Flow Rate FiO2 08/24/21 10:19 72 152/65 (94) 99 Room Air 08/24/21 10:01 18 08/24/21 09:27 97.7 97.7 LABS Lab: Laboratory Tests Test 08/24/21 09:45 White Blood Count 5.6 x10^3/uL (4.0-11.0) Red Blood Count 4.02 x10^6/uL (3.50-5.40) Hemoglobin 11.5 g/dL (12.0-15.5) L Hematocrit 33.7 % (36.0-47.0) L Mean Corpuscular Volume 84 fL (79-100) Mean Corpuscular Hemoglobin 29 pg (25-35) Mean Corpuscular Hemoglobin Concent 34 g/dL (31-37) Red Cell Distribution Width 14.1 % (11.5-14.5) Platelet Count 178 x10^3/uL (140-400) Neutrophils (%) (Auto) 68 % (31-73) Lymphocytes (%) (Auto) 25 % (24-48) Monocytes (%) (Auto) 6 % (0-9) Eosinophils (%) (Auto) 1 % (0-3) Basophils (%) (Auto) 1 % (0-3) Neutrophils # (Auto) 3.8 x10^3/uL (1.8-7.7) Lymphocytes # (Auto) 1.4 x10^3/uL (1.0-4.8) Monocytes # (Auto) 0.3 x10^3/uL (0.0-1.1) Eosinophils # (Auto) 0.1 x10^3/uL (0.0-0.7) Basophils # (Auto) 0.0 x10^3/uL (0.0-0.2) Sodium Level 133 mmol/L (136-145) L Potassium Level 3.4 mmol/L (3.5-5.1) L Chloride Level 96 mmol/L (98-107) L Carbon Dioxide Level 28 mmol/L (21-32) Anion Gap 9 (6-14) Blood Urea Nitrogen 17 mg/dL (7-20) Creatinine 0.9 mg/dL (0.6-1.0) Estimated GFR (Cockcroft-Gault) 61.9 BUN/Creatinine Ratio 19 (6-20) Glucose Level 227 mg/dL (70-99) H Calcium Level 8.9 mg/dL (8.5-10.1) Magnesium Level 1.7 mg/dL (1.8-2.4) L Total Bilirubin 0.8 mg/dL (0.2-1.0) Aspartate Amino Transferase (AST) 15 U/L (15-37) Alanine Aminotransferase (ALT) 20 U/L (14-59) Alkaline Phosphatase 122 U/L (46-116) H Troponin I Quantitative < 0.017 ng/mL (0.000-0.055) QU-Kop-N-Type Natriuretic Peptide 54 pg/mL (0-124) Total Protein 7.3 g/dL (6.4-8.2) Albumin 3.5 g/dL (3.4-5.0) Albumin/Globulin Ratio 0.9 (1.0-1.7) L Lipase 71 U/L (73-393) L Laboratory Tests 08/24/21 09:45 Laboratory Tests 08/24/21 09:45 ECHOCARDIOGRAM ECHOCARDIOGRAM <Conclusion> The left ventricular systolic function is normal and the ejection fraction is within normal range. The Ejection Fraction is 70%. Transmitral Doppler flow pattern is Grade I-abnormal relaxation pattern. The left atrium size is normal. The right atrium size is normal. The aortic valve is mildly sclerotic. The aortic valve is trileaflet. Doppler and Color Flow revealed trace mitral valve regurgitation noted. Mitral annular calcification is mild. The mitral valve leaflets are thickened. Doppler and Color Flow revealed no tricuspid valve regurgitation noted. Unable to determine pulmonary artery pressure at exam time. Doppler and Color Flow revealed no pulmonic valvular regurgitation. There is no evidence of significant pericardial effusion. DATE: 03/05/17182026/21 - 2D + DOPPLER ECHO Interpretation Summary Technically difficult study. Echo contrast was given to enhance endocardial de finition. Normal left ventricular size and systolic function. Estimated EF 60-65%. Normal diastolic function. Normal right ventricular size and systolic function. Normal left and right atrial sizes. Aortic valve sclerosis without stenosis. No regurgitation. Moderate calcification of the mitral valve annulus. No stenosis. Trivial regurgitation. No pericardial effusion. Unable to estimate pulmonary artery systolic pressure due to inadequate tricuspid regurgitation signal. No prior studies available for comparison. STRESS TEST STRESS TEST 01/27/21 - Procedure: D-SPECT MULTI GATED THALLIUM REGADENOSON MPI STRESS TEST SUMMARY/OPINION: This study is probably normal with no evidence of significant myocardial ischemia. Left ventricular systolic function is normal. There are no high risk prognostic indicators present. The pharmacologic ECG portion of the study is negative for ischemia. There are no prior studies available for comparison. HEART CATH HEART CATH Conclusion This patient has no significant coronary artery disease and a normal left ventricular ejection fraction. I do not think that any of her symptoms are due to to angina. I would recommend for her to have a tight blood pressure control, diet exercise and weight loss. DATE: 03/07/17 1648 ASSESSMENT/PLAN ASSESSMENT/PLAN 1. Chest pain, atypical. Initial troponin negative. Recent MPI without evidence of ischemia as noted above. Echo 01/22 with LVEF 60-65%. Most probably GI in nature 2. GERD 3. Hypertension; Follows with Dr. Felton KITCHEN 4. Hyperlipidemia 5. Diabetes, II 6. H/o gastric bypass 7. HUE with CPAP 8. Hypokalemia; magnesemia Recommendations Trend troponin Echo to ensure intact LV systolic function Replace electrolytes GI cocktail Lipids Consider outpatient ischemic evaluation Supportive care BRANDAN GOMEZ MD 08/25/21 0604: CARDIAC CONSULT ASSESSMENT/PLAN ASSESSMENT/PLAN Patient seen and examined. Agree with PHOTO EQUIPMENT TECHNICIAN's assessment and plan CP with atypical features and most prob GI etiology - improved with GI cocktail NE ruled out Recent echo showed normal LVEF and MPI did not show any ischemia Replace K/Mg Thank you for your consultation KATHY DUGGAN APRN Aug 24, 2021 13:01 BRANDAN GOMEZ MD Aug 25, 2021 06:04
[2021-08-24] MEDS ORDERED: MAGNESIUM SULFATE 2GM 50 ML IV ONE (14:30)
[2021-08-24] MEDS ORDERED: LIDO:MAALOX 1:1 20 ML SINGLE DOSE. SWSW ONE (14:30)
[2021-08-24] MEDS ORDERED: POTASSIUM CHLORIDE 20 MEQ TABLET.ER. PO ONE (14:30)
[2021-08-24 16:15] VITALS: BP 129/71
[2021-08-24 16:52] LABS: CHOLESTEROL/HDL RATIO 1.5
--- NOTE | 2021-08-24 18:18 | CARD ---
MR#: [id number] Date of Study: 08/24/2021 Ordering Physician: KATHY DUGGAN, Referring Physician: KATHY DUGGAN, Tech: Cleo Maria Growena, [facility] APPROVED REPORT EXAM: Two-dimensional and M-mode echocardiogram with Doppler and color Doppler. Other Information Quality : AverageHR: 73bpm INDICATION Chest Pain RISK FACTORS Hypertension Hyperlipidemia Diabetes 2D DIMENSIONS Left Atrium(2D)3.3 (1.6-4.0cm)IVSd1.1 (0.7-1.1cm) Aortic Root(2D)2.9 (2.0-3.7cm)LVDd5.2 (3.9-5.9cm) LVOT Diameter2.0 (1.8-2.4cm)PWd1.2 (0.7-1.1cm) LVDs3.2 (2.5-4.0cm)FS (%) 37.9 % SV88.2 mlLVEF(%)67.7 (>50%) Aortic Valve AoV Peak Tong.133.9cm/sAoV VTI32.1cm AO Peak GR.7.2mmHgLVOT VTI 23.18cm AO Mean GR.5mmHg Mitral Valve MV E Hlsgquqv67.5cm/sMV E Peak Gr.11mmHg MV DECEL [id number] A Mcjtqhcd621.7cm/s MV E Mean Gr.4mmHgE/A Ratio0.6 TDI Lateral E' P. V7.34cm/sMedial E' P. V7.34cm/s E/Lateral E'12.1E/Medial E'12.1 Tricuspid Valve TR P. Bhmvipun203iz/sTR Peak Gr.27mmHg Pulmonary Vein S1 Lzsnyqyk25.0cm/sS2 Npnbskbs78.12cm/s D2 Kcfvmatr48.1cm/sPVa [id number] LEFT VENTRICLE The left ventricle is normal size. There is mild concentric left ventricular hypertrophy. The left ve ntricular systolic function is normal and the ejection fraction is within normal range. The Ejection Fraction is 50-55%. Septal motion suggestive of conduction defect. Otherwise, no significant wall mot ion abnormalities. Limited images. Transmitral Doppler flow pattern is Grade I-abnormal relaxation pa ttern. RIGHT VENTRICLE The right ventricle is normal size. There is normal right ventricular wall thickness. The right ventr icular systolic function is normal. ATRIA The left atrium size is normal. The right atrium size is normal. The interatrial septum is intact wit h no evidence for an atrial septal defect or patent foramen ovale as noted on 2-D or Doppler imaging. AORTIC VALVE The aortic valve is calcified but opens well. Doppler and Color Flow revealed trace aortic regurgitat ion. There is no significant aortic valvular stenosis. Calculated aortic valve area is 2.35 cm2 with maximum pressure gradient of 10 mmHg and mean pressure gradient of 6 mmHg. MITRAL VALVE The mitral valve is normal in structure and function. There is no evidence of mitral valve prolapse. There is no mitral valve stenosis. Doppler and Color-flow revealed trace mitral regurgitation. TRICUSPID VALVE The tricuspid valve is normal in structure and function. Doppler and Color Flow revealed trace tricus pid regurgitation with an estimated PAP of 31 mmHg. There is no tricuspid valve stenosis. PULMONIC VALVE The pulmonic valve is not well visualized. Doppler and Color Flow revealed trace pulmonic valvular re gurgitation. There is no pulmonic valvular stenosis. GREAT VESSELS The aortic root is normal in size. The ascending aorta is normal in size. The IVC is normal in size a nd collapses >50% with inspiration. PERICARDIAL EFFUSION There is no evidence of significant pericardial effusion. Critical Notification Critical Value: No <Conclusion> The left ventricular systolic function is normal and the ejection fraction is within normal range. Th e Ejection Fraction is 50-55%. Septal motion suggestive of conduction defect. Otherwise, no significant wall motion abnormalities. L imited images. Doppler and Color Flow revealed trace tricuspid regurgitation with an estimated PAP of 31 mmHg. Signed by : Mark Barraza, Electronically Approved : 08/24/2021 18:18:14
[2021-08-24 19:06] VITALS: BP 115/56
[2021-08-24 22:54] VITALS: BP 159/64
[2021-08-25 03:05] VITALS: BP 119/55
[2021-08-25 07:15] VITALS: BP 138/74
[2021-08-25] MEDS ORDERED: LIDO:MAALOX 1:1 20 ML SINGLE DOSE. PO PRN (08:15)
[2021-08-25] MEDS ORDERED: FLUCONAZOLE 100 MG TABLET. PO ONE (08:15)
[2021-08-25] MEDS ORDERED: HYDROcodone/APAP 5/325MG 1 TAB TABLET PO PRN (08:15)
[2021-08-25] MEDS ORDERED: METHOCARBAMOL 750 MG TABLET PO PRN (08:15)
--- NOTE | 2021-08-25 08:21 | PDOC ---
Provider Note Date of Service: DATE: 08/25/21 TIME: 08:18 Provider Note [id number] Justifications for Admission Other Justification JARRELL GARCIA MD Aug 25, 2021 08:21
[2021-08-25] MEDS: DOCUSATE SODIUM 100 MG CAPSULE. PO SCH ×2 (08:57→20:35)
[2021-08-25] MEDS: DULoxetine HCL 30 MG CAPSULE.DR PO SCH (08:58)
[2021-08-25] MEDS: PANTOPRAZOLE 40 MG TABLET.DR. PO SCH ×2 (08:58→16:13)
[2021-08-25] MEDS ORDERED: SUCRALFATE 1 GM TABLET. PO SCH (09:00)
[2021-08-25] MEDS: FLUCONAZOLE 100 MG TABLET. PO SCH ×2 (09:00→20:35)
[2021-08-25] MEDS ORDERED: PRAMIPEXOLE 0.25 MG TABLET. PO SCH (09:00)
--- NOTE | 2021-08-25 10:05 | HP ---
DATE OF SERVICE: 08/25/2021 ADMIT DATE: 08/24/2021 CHIEF COMPLAINT: Painful swallowing, chest pain. HISTORY OF PRESENT ILLNESS: A 71-year-old white female with no previous cardiovascular history, but history of chronic acid reflux disease and well controlled diabetes, came in with 2-3 days of odynophagia and some terminal dysphagia. She was able to swallow liquids, had no vomiting, melena, hematochezia, fever, chills, exertional chest pain. She was seen in the office and sent to the ER and has been admitted for further evaluation as a possible cardiac patient. She has had cardiac catheterization in 2017, which was normal. A cardiac scan in January of this year, which was also normal, indicating no sign of heart disease in the past. CTA showed diffuse esophagitis, but no pulmonary lesions of any kind. PAST MEDICAL HISTORY: Multiple allergies listed in the chart. She is a well-controlled diabetic, on metformin only. Last A1c was 6.4. She has had gastric bypass surgery and infusions for that as well, but she is fully vaccinated against COVID. SOCIAL HISTORY: Nonsmoker, not physically active, , nondrinker. FAMILY HISTORY: Unremarkable. REVIEW OF SYSTEMS: A 12-point review of systems is unremarkable. OBJECTIVE: ENT: All within normal limits. NECK: No masses, nodes or bruits. LUNGS: Clear without tachypnea. CARDIOVASCULAR: Regular rate. No tachycardia, rubs or murmur. ABDOMEN: Soft, benign and nontender. EXTREMITIES: Good pedal and radial pulses. No joint or skin lesions. NEUROLOGIC: Physiologic, nonfocal. LABORATORY STUDIES: Generally unremarkable as well as EKG. ASSESSMENT: Chest pain, odynophagia, dysphagia, likely secondary to diffuse esophagitis. She takes omeprazole twice a day, raising the possibility of Marian esophagitis even though she is well-controlled diabetic. PLAN: We will add fluconazole and advanced GI evaluation to consider endoscopy. GI cocktail for symptomatic relief as well. Rest of meds remain the same. DENA/JORDI DR: Annette TID: [id number]
--- NOTE | 2021-08-25 10:05 | PDOC2 ---
CONSULT Date of Consult Date of Consult DATE: 08/25/21 TIME: 10:03 Reason for Consult Reason for Consult: Atypical chest pain/abnl CT scan of esophagus/odynophagia Past Medical History Cardiovascular: HTN, Hyperlipidemia Pulmonary: Other (HUE) GI: GERD Musculoskeletal: Osteoarthritis Past Surgical History Past Surgical History: Appendectomy, Cholecystectomy, Hysterectomy, Other (gastric bypass, back surgery) Family History Family History: Hypertension Social History No ALCOHOL: none Drugs: None Lives: with Family Current Problem List Problem List Problems Medical Problems: (1) Chest pain Status: Acute (2) Esophageal abnormality Status: Acute Current Medications Current Medications Current Medications Aspirin (Aspirin Chewable) 324 mg 1X ONCE PO Last administered on 08/24/21at 10:00; Start 08/24/21 at 09:30; Stop 08/24/21 at 09:32; Status DC Fentanyl Citrate (Fentanyl 2ml Vial) 50 mcg 1X ONCE IVP Last administered on 08/24/21at 10:01; Start 08/24/21 at 09:30; Stop 08/24/21 at 09:32; Status DC Iohexol (Omnipaque 350 Mg/ml) 90 ml 1X ONCE IV Last administered on 08/24/21at 10:53; Start 08/24/21 at 11:00; Stop 08/24/21 at 11:01; Status DC Info (CONTRAST GIVEN -- Rx MONITORING) 1 each PRN DAILY PRN MC SEE COMMENTS; Start 08/24/21 at 11:00; Stop 08/26/21 at 10:59 Ondansetron HCl (Zofran) 4 mg PRN Q8HRS PRN IVP NAUSEA/VOMITING; Start 08/24/21 at 12:00; Stop 08/25/21 at 08:18; Status DC Fentanyl Citrate (Fentanyl 2ml Vial) 50 mcg PRN Q2HRS PRN IVP pain; Start 08/24/21 at 12:00; Stop 08/25/21 at 08:18; Status DC Sodium Chloride 1,000 ml @ 75 mls/hr 1X ONCE IV Last administered on 08/24/21at 13:46; Start 08/24/21 at 12:00; Stop 08/25/21 at 01:19; Status DC Fentanyl Citrate (Fentanyl 2ml Vial) 50 mcg 1X ONCE IVP Last administered on 08/24/21at 13:45; Start 08/24/21 at 12:45; Stop 08/24/21 at 12:46; Status DC Potassium Chloride (Klor-Con) 40 meq 1X ONCE PO Last administered on 08/24/21at 15:36; Start 08/24/21 at 14:30; Stop 08/24/21 at 14:32; Status DC Magnesium Sulfate 50 ml @ 25 mls/hr 1X ONCE IV Last administered on 08/24/21at 15:35; Start 08/24/21 at 14:30; Stop 08/24/21 at 16:29; Status DC Multi-Ingredient Mouthwash/Gargle (Gi Cocktail) 20 ml 1X ONCE SWSW Last administered on 08/24/21at 15:36; Start 08/24/21 at 14:30; Stop 08/24/21 at 14:32; Status DC Amlodipine Besylate (Norvasc) 10 mg DAILY PO Last administered on 08/25/21at 08:58; Start 08/25/21 at 09:00 Docusate Sodium (Colace) 100 mg BID PO Last administered on 08/25/21at 08:57; Start 08/25/21 at 09:00 Acetaminophen/ Hydrocodone Bitart (Lortab 5/325) 1 tab PRN TID PRN PO MODERATE PAIN 4-6; Start 08/25/21 at 08:15 Metformin HCl (Glucophage) 500 mg BIDWMEALS PO ; Start 08/26/21 at 17:00 Methocarbamol (Robaxin) 750 mg PRN TID PRN PO MUSCLE SPASMS; Start 08/25/21 at 08:15 Pramipexole Dihydrochloride (miraPEX) 0.175 mg BID PO ; Start 08/25/21 at 09:00; Status UNV Senna/Docusate Sodium (Senna Plus) 1 tab QHS PO ; Start 08/25/21 at 21:00 Sucralfate (Carafate) 1 gm BID PO ; Start 08/25/21 at 09:00; Stop 08/25/21 at 08:18; Status DC Temazepam (Restoril) 15 mg QHS PO ; Start 08/25/21 at 21:00 Duloxetine HCl (Cymbalta) 120 mg DAILY PO Last administered on 08/25/21at 08:58; Start 08/25/21 at 09:00 Pantoprazole Sodium (Protonix) 40 mg BIDAC PO Last administered on 08/25/21at 08:58; Start 08/25/21 at 08:30 Multi-Ingredient Mouthwash/Gargle (Gi Cocktail) 20 ml PRN Q2HR PRN PO CHEST PAIN; Start 08/25/21 at 08:15 Fluconazole (Diflucan) 200 mg 1X ONCE PO Last administered on 08/25/21at 08: 57; Start 08/25/21 at 08:15; Stop 08/25/21 at 08:26; Status DC Active Scripts Active Golytely Solution (Peg 3350/Na Sulf,Bicarb,Cl/Kcl) 4,000 Ml Soln.recon 4,000 Ml PO 1X PRN Drink 8 oz every 15min until significant output. Colace 2-in-1 Tablet (Sennosides/Docusate Sodium) 1 Each Tablet 1 Tab PO QHS 30 Days [place] 5-325 Tablet (Acetaminophen/Hydrocodone Bitart) 1 Each Tablet 1-2 Tab PO Q4-6HRS Dok (Docusate Sodium) 100 Mg Capsule 100 Mg PO BID Methocarbamol 750 Mg Tablet 750 Mg PO PRN TID PRN Reported Sucralfate 1 Gm Tablet 1 Tab PO BID Mirapex (Pramipexole Di-Hcl) 0.25 Mg Tablet 0.175 Mg PO BID Metformin Hcl 500 Mg Tablet 500 Mg PO BIDWMEALS Vitamin D3 (Cholecalciferol (Vitamin D3)) 5,000 Unit Tablet 1 Tab PO DAILY 30 Days [place]lalli-D 12 Hour Tablet (Fexofenadine/Pseudoephedrine) 1 Each Tab.er.12h 1 Tab PO DAILY Amlodipine Besylate 5 Mg Tablet 10 Mg PO DAILY Temazepam 15 Mg Capsule 1 Cap PO QHS Duloxetine Hcl 60 Mg Capsule.dr 120 Mg PO DAILY Allergies Allergies: Coded Allergies: adhesive (Verified Allergy, Intermediate, 04/09/21) codeine (Verified Allergy, Intermediate, nausea, 04/09/21) lisinopril (Verified Allergy, Intermediate, COUGH, 04/09/21) losartan (Verified Allergy, Intermediate, 04/09/21) nitrofurantoin (Verified Allergy, Intermediate, 04/09/21) sulfamethoxazole (Verified Allergy, Mild, 04/09/21) trimethoprim (Verified Allergy, Mild, 08/08/20) I S O L A T I O N *CONTACT* (Verified Allergy, Unknown, MRSA POSITIVE NARES, 08/09/20) Vitals VITALS Vital Signs Date Time Temp Pulse Resp B/P (MAP) Pulse Ox O2 Delivery O2 Flow Rate FiO2 08/25/21 08:58 88 138/74 08/25/21 07:15 98.4 20 98 Room Air 98.4 Labs Labs Laboratory Tests Test 08/24/21 09:45 08/24/21 12:45 08/24/21 15:25 White Blood Count 5.6 x10^3/uL (4.0-11.0) Red Blood Count 4.02 x10^6/uL (3.50-5.40) Hemoglobin 11.5 g/dL (12.0-15.5) Hematocrit 33.7 % (36.0-47.0) Mean Corpuscular Volume 84 fL (79-100) Mean Corpuscular Hemoglobin 29 pg (25-35) Mean Corpuscular Hemoglobin Concent 34 g/dL (31-37) Red Cell Distribution Width 14.1 % (11.5-14.5) Platelet Count 178 x10^3/uL (140-400) Neutrophils (%) (Auto) 68 % (31-73) Lymphocytes (%) (Auto) 25 % (24-48) Monocytes (%) (Auto) 6 % (0-9) Eosinophils (%) (Auto) 1 % (0-3) Basophils (%) (Auto) 1 % (0-3) Neutrophils # (Auto) 3.8 x10^3/uL (1.8-7.7) Lymphocytes # (Auto) 1.4 x10^3/uL (1.0-4.8) Monocytes # (Auto) 0.3 x10^3/uL (0.0-1.1) Eosinophils # (Auto) 0.1 x10^3/uL (0.0-0.7) Basophils # (Auto) 0.0 x10^3/uL (0.0-0.2) Sodium Level 133 mmol/L (136-145) Potassium Level 3.4 mmol/L (3.5-5.1) Chloride Level 96 mmol/L (98-107) Carbon Dioxide Level 28 mmol/L (21-32) Anion Gap 9 (6-14) Blood Urea Nitrogen 17 mg/dL (7-20) Creatinine 0.9 mg/dL (0.6-1.0) Estimated GFR (Cockcroft-Gault) 61.9 BUN/Creatinine Ratio 19 (6-20) Glucose Level 227 mg/dL (70-99) Calcium Level 8.9 mg/dL (8.5-10.1) Magnesium Level 1.7 mg/dL (1.8-2.4) Total Bilirubin 0.8 mg/dL (0.2-1.0) Aspartate Amino Transf (AST/SGOT) 15 U/L (15-37) Alanine Aminotransferase (ALT/SGPT) 20 U/L (14-59) Alkaline Phosphatase 122 U/L (46-116) Troponin I Quantitative < 0.017 ng/mL (0.000-0.055) < 0.017 ng/mL (0.000-0.055) < 0.017 ng/mL (0.000-0.055) JA-Mwa-Y-Type Natriuretic Peptide 54 pg/mL (0-124) Total Protein 7.3 g/dL (6.4-8.2) Albumin 3.5 g/dL (3.4-5.0) Albumin/Globulin Ratio 0.9 (1.0-1.7) Triglycerides Level 68 mg/dL (0-150) Cholesterol Level 130 mg/dL (0-200) LDL Cholesterol, Calculated 29 mg/dL (0-100) VLDL Cholesterol, Calculated 14 mg/dL (0-40) Non-HDL Cholesterol Calculated 43 mg/dL (0-129) HDL Cholesterol 87 mg/dL (40-60) Cholesterol/HDL Ratio 1.5 Lipase 71 U/L (73-393) Laboratory Tests Test 08/24/21 12:45 08/24/21 15:25 Troponin I Quantitative < 0.017 ng/mL (0.000-0.055) < 0.017 ng/mL (0.000-0.055) Assessment/Plan Assessment/Plan Atypical chest pain-with odynophagia, fungal esophagitis leads differential. Viral less likely. plan anti fungal therapy with Diflucan 100 m g daily for one week if no improvement with above. EGD early next week to further assess Full note dictated LONNIE CANO MD Aug 25, 2021 10:05
--- NOTE | 2021-08-25 10:28 | CONS ---
DATE OF CONSULTATION: 08/25/2021 GASTROENTEROLOGY CONSULTATION REASON: Atypical chest pain. REFERRING PHYSICIAN: Jarrell Fall MD. HISTORY: This is a 71-year-old female whose past medical history is significant for hypertension, hyperlipidemia, osteoarthrosis, status post appendectomy, cholecystectomy, hysterectomy, gastric bypass surgery, [facility]. Subsequent evaluation including cardiac studies, CT scan did reveal a thickened esophagus. She relates having pain with swallowing both solids and liquids, which began on Saturday. Cardiac workup has been unrevealing with enzymes, suggestion of possible Marian esophagitis is noted with the odynophagia and consultation is requested. PAST MEDICAL HISTORY: Hypertension, hyperlipidemia, osteoarthrosis. PAST SURGICAL HISTORY: Status post appendectomy, cholecystectomy, hysterectomy, gastric bypass surgery. FAMILY HISTORY: Significant for hypertension. SOCIAL HISTORY: She is a nondrinker, nonsmoker. MEDICATIONS: Include aspirin, fentanyl, and Omnipaque. ALLERGIES: Per records. REVIEW OF SYSTEMS: Per records. PHYSICAL EXAMINATION: GENERAL: Reveals a well-nourished, well-developed female who is alert, cooperative, in no acute distress. VITAL SIGNS: Temperature is 98.4, pulse 88, respiratory rate 20, blood pressure is 138/74. HEENT: Reveals normocephalic, atraumatic head. Pupils and extraocular muscles are not tested. Sclerae are anicteric. NECK: Supple. LUNGS: Clear. CARDIOVASCULAR: Reveals an S1, S2, without S3, S4 or appreciable murmur. ABDOMEN: Reveals multiple surgical incisions. Positive bowel sounds. EXTREMITIES: Reveals no cyanosis, clubbing or edema. LABORATORY STUDIES: Hemoglobin 11.5, hematocrit 38.7, white count 5.6, platelet count is 178,000. Chemistry: Sodium 133, total protein 7.3, albumin 3.5, calcium 8.9, glucose 227, BUN 17, creatinine 0.9, total bilirubin 0.8, alkaline phosphatase 122, ALT of 20, AST of 15, potassium 3.4, chloride 96, bicarbonate 28, magnesium is 1.7, lipase is 71. CT of the chest reveals diffuse esophageal wall thickening, small pulmonary nodules. No DVT, no PE. IMPRESSION: Atypical chest pain and odynophagia, most likely secondary to Marian esophagitis. Therefore, I recommend beginning antifungal therapy. If no improvement in the next 48-72 hours with this, then perhaps inpatient EGD for biopsies to rule out a viral esophagitis would be pursued on the basis of her CT scan. I would like to thank Dr. Fall for allowing us to consult and participate in this patient's care. MERCEDES DR: Alyx TID: [id number] CC: JARRELL FALL MD
[2021-08-25 10:59] VITALS: BP 133/61
--- NOTE | 2021-08-25 11:04 | PDOC ---
REYNALDO ANGELES SUSPECT ARTIST SUPERVISOR 08/25/21 1104: CARDIO Progress Notes Date and Time Date of Service 08/25/2021 Time of Evaluation 1040 Subjective Subjective: No Chest Pain, No shortness of breath, No Palpitations Vitals Vitals Vital Signs Date Time Temp Pulse Resp B/P (MAP) Pulse Ox O2 Delivery O2 Flow Rate FiO2 08/25/21 08:58 88 138/74 08/25/21 07:15 98.4 20 98 Room Air 98.4 Weight Weight [ ] Input and Output Intake and Output Intake and Output 08/25/21 07:00 Output Total 500 ml Balance -500 ml Output Urine Total 500 ml # Voids 1 Laboratory Labs Laboratory Tests Test 08/24/21 12:45 08/24/21 15:25 Troponin I Quantitative < 0.017 ng/mL (0.000-0.055) < 0.017 ng/mL (0.000-0.055) Physical Exam HEENT: Neck Supple W Full Motion Chest: Symmetric LUNGS: Clear to Auscultation Heart: S1S2, RRR (SR) Abdomen: Soft N/T Extremities: No Calf Tenderness Neurology: alert, oriented, follow commands Assessment Assessment 1. Atypical CP: GI in etiology improved with GI cocktail. 2. GERD 3. Hypertension; Follows with Dr. Felton KITCHEN. Controlled 4. Hyperlipidemia 5. Diabetes, II 6. H/o gastric bypass 7. HUE with CPAP 8. Hypokalemia; hypomagnesemia: replaced Recommendations Follow up with [facility] cardiology Secondary prevention measures Justicifation of Admission Dx: Justifications for Admission: Justification of Admission Dx: Yes BRANDAN GOMEZ MD 08/25/21 1804: CARDIO Progress Notes Assessment Assessment Patient seen and examined. Agree with TRANSPORTATION DEPARTMENT HEAD's assessment and plan CP with atypical features and most prob GI etiology - improved with GI cocktail TX ruled out 2D echo showed normal LVEF and recent MPI did not show any ischemia K/Mg replaced REYNALDO ANGELES APRN Aug 25, 2021 11:04 BRANDAN GOMEZ MD Aug 25, 2021 18:04
--- NOTE | 2021-08-25 13:05 | NUR ---
SS following for discharge planning. SS reviewed pt chart and discussed with pt RN. Pt is from home with spouse and is currently on room air. GI and Cardiology consulted. SS will continue to follow for discharge planning.
[2021-08-25 15:00] VITALS: BP 112/58
[2021-08-25 19:30] VITALS: BP 138/58
[2021-08-25] MEDS: PRAMIPEXOLE 0.25 MG TABLET. PO SCH (20:35)
[2021-08-25] MEDS ORDERED: SENNOSIDES/DOCUSATE 8.6/50MG TABLET. PO SCH (21:00)
[2021-08-25] MEDS ORDERED: TEMAZEPAM 15 MG CAPSULE PO SCH (21:00)
[2021-08-25 23:30] VITALS: BP 102/56
[2021-08-26 03:30] VITALS: BP 96/57
[2021-08-26 07:00] VITALS: BP 135/65
[2021-08-26] MEDS: FLUCONAZOLE 100 MG TABLET. PO SCH ×2 (08:40→08:56)
[2021-08-26] MEDS: DULoxetine HCL 30 MG CAPSULE.DR PO SCH (08:40)
[2021-08-26] MEDS: DOCUSATE SODIUM 100 MG CAPSULE. PO SCH (08:40)
[2021-08-26] MEDS: PANTOPRAZOLE 40 MG TABLET.DR. PO SCH (08:41)
[2021-08-26] MEDS: PRAMIPEXOLE 0.25 MG TABLET. PO SCH (08:41)
[2021-08-26] MEDS ORDERED: Fluconazole PO (10:39)
[2021-08-26] MEDS ORDERED: PANT40TA77 PO (10:39)
[2021-08-26 11:00] VITALS: BP 103/76
--- NOTE | 2021-08-26 11:22 | DS ---
DATE OF DISCHARGE: 08/26/2021 PRIMARY DIAGNOSIS: Esophagitis causing noncardiac chest pain, felt to be likely fungal in nature. ADDITIONAL DIAGNOSES: Diabetes. CHIEF COMPLAINT AND HISTORY OF PRESENT ILLNESS: This 71-year-old female was admitted through the Emergency Room with two to three days of odynophagia and terminal dysphagia as well as chest tightness. She was admitted through the Emergency Room. SUMMARY OF STAY: The patient was admitted. A CT showed diffuse esophageal wall thickening. GI and Cardiology were consulted. Echocardiogram was normal. She had minimal improvement by the time of discharge on Diflucan and Protonix, but GI wanted to give her several days to see if she improves and if not at that point would do an EGD. It was felt she could be dismissed on the same with close outpatient followup, but she was able to take enough orally between liquids and soft foods. This sustained then she was discharged on the day of discharge. DISPOSITION: The patient is discharged to home, ADA diet. Activity as tolerated. Office of Dr. Fall later next week. DISCHARGE MEDICATIONS: Listed on the med rec and have been addressed. YESSICA/MARIBEL DR: Netta TID: [id number] CC: JARRELL FALL MD
--- NOTE | 2021-08-26 13:49 | NUR ---
Discharged patient to home.PIV and heart monitor removed. Escorted patient off unit per wheelchair into a private vehicle with spouse.
[2021-08-26] MEDS ORDERED: metFORMIN 500 MG TABLET PO SCH (17:00)
== END 2021-08-26 13:55 | disposition home or self-care (01) | DRG 370 ==
LOC: ER 09:05 → 6 SOUTH 11:45 → OBSVTOIN 08-25 14:02
PROVIDERS: ADMIT Family Medicine; ATTEND Family Medicine
PROC: 5A09357 Assistance with Respiratory Ventilation, Less than 24 Consecutive Hours, Continuous Positive Airway Pressure (ICD-10-PCS; principal; 2021-08-25)
DX: B37.81 Candidal esophagitis (principal); R07.89 Other chest pain; E04.1 Nontoxic single thyroid nodule; E11.43 Type 2 diabetes mellitus with diabetic autonomic (poly)neuropathy; E78.5 Hyperlipidemia, unspecified; E83.42 Hypomagnesemia; E87.6 Hypokalemia; G47.33 Obstructive sleep apnea (adult) (pediatric); I10 Essential (primary) hypertension; I72.8 Aneurysm of other specified arteries; K21.9 Gastro-esophageal reflux disease without esophagitis; Z20.822 Contact with and (suspected) exposure to COVID-19; Z82.49 Family history of ischemic heart disease and other diseases of the circulatory system; Z90.49 Acquired absence of other specified parts of digestive tract; Z90.710 Acquired absence of both cervix and uterus; Z96.659 Presence of unspecified artificial knee joint; Z98.84 Bariatric surgery status; F32.A Depression, unspecified; M19.90 Unspecified osteoarthritis, unspecified site; Z88.8 Allergy status to other drugs, medicaments and biological substances; Z91.048 Other nonmedicinal substance allergy status
CPT/HCPCS: 36415; 71045; 71275; 80053; 80061; 83690; 83735; 83880; 84484; 85025; 93005; 93306; 96361; 96374; 96376; G0378; G0379; J3010; J3475; J7030; Q9967; 99285-25